=== PATIENT | male | born 1950 | race Caucasian/White ===

== ENCOUNTER 2016-07-30 07:06 | Inpatient (IN) | payer MEDICARE, OTHER ==
[2016-07-30] VITALS (9 sets, daily range): BP systolic 120–163; BP diastolic 64–88; PULSE 69–91; RESP 16–20; TEMP 97.2–97.7; O2SAT 95–98
[~2016-07-30] VITALS: Ht 175.3 cm; Wt 95.7 kg
[~2016-07-30 07:06] MED LIST: BUSP10 PO; CLOP75TA PO; LISI-360 PO; METO25 PO; PROT40TA PO; REME15TA PO; TOPA15CA PO
[2016-07-30] MEDS ORDERED: SODIUM CHLOR 0.9% 1000 ML INJ 1,000 ML IV SCH ×2 (07:22→10:23)
[2016-07-30] MEDS ORDERED: ONDANSETRON HCL 4 MG/2 ML VIAL IVP ONE (07:30)
[2016-07-30] MEDS ORDERED: SODIUM CHLORIDE 0.9% FLUSH 5 ML FLUSH IVF PRN (07:30)
--- NOTE | 2016-07-30 07:37 | PD ---
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 Symptoms started about 4 days ago. The day prior to symptom onset the patient had head trauma and apparently had a scalp hematoma after falling into a wall. He has not any antiplatelets or anticoagulants. He has not actually been vomiting, but has been dry heaving. No diarrhea. Abdominal pain is lower, cramping, intermittent, worse with movement and palpation. No fevers or chills. While in the emergency department the patient had a little discomfort in his chest which has since resolved. No known history of cardiac disease. History of cholecystectomy. No other abdominal surgeries. PFSH Past Medical History High Cholesterol: Yes Cerebrovascular Accident: Yes Diminished Hearing: No Hypertension: Yes Tetanus Vaccination: < 5 Years Past Surgical History Cholecystectomy: Yes Eye Surgery: Yes (BILAT. CATATRACTS) Neurologic Surgery: Yes (TRUCK DRIVER HELPER SHUNT) Social History Alcohol Use: No Tobacco Use: Yes (1 PPD) Substance Use: No Allergies-Medications (Allergen,Severity, Reaction): Coded Allergies: Histamine H2 Receptor Antagonist (Verified Allergy, Mild, 07/30/16) Reported Meds & Prescriptions Reported Meds & Active Scripts Active Reported Buspirone (Buspirone HCl) 10 Mg Tab 10 Mg PO TID Atorvastatin (Atorvastatin Calcium) 10 Mg Tab 10 Mg PO HS Lisinopril 10 Mg Tab 10 Mg PO DAILY Flomax (Tamsulosin HCl) 0.4 Mg Cap 0.4 Mg PO HS Metoprolol Tartrate 50 Mg Tab 50 Mg PO BID Eliquis (Apixaban) 5 Mg Tab 5 Mg PO BID Review of Systems Except as stated in HPI: all other systems reviewed are Neg Physical Exam Narrative GENERAL: Well-developed, well-nourished, awake, alert, dry heaving into an emesis bag SKIN: Warm and dry. No rash. Superficial abrasion to right posterior scalp. HEAD: Skin exam as above. Normocephalic. Right posterior radicular subcutaneous TRUCK DRIVER HELPER shunt palpable with depressible port EYES: Pupils equal and round. No scleral icterus. No injection or drainage. ENT: Mucous membranes pink and moist. NECK: Trachea midline. No JVD. No nuchal rigidity. CARDIOVASCULAR: Regular rate and rhythm. RESPIRATORY: No accessory muscle use. Clear to auscultation. Breath sounds equal bilaterally. GASTROINTESTINAL: Abdomen soft, nondistended. Mild diffuse tenderness without rebound or guarding. Normal bowel sounds. MUSCULOSKELETAL: No obvious deformities. No clubbing. No cyanosis. No edema. NEUROLOGICAL: Awake and alert. No obvious cranial nerve deficits. Motor grossly within normal limits. Normal speech. PSYCHIATRIC: Appropriate mood and affect; insight and judgment normal. Data Data Last Documented VS Vital Signs Date Time Temp Pulse Resp B/P Pulse Ox O2 Delivery O2 Flow Rate FiO2 07/30/16 09:25 74 20 138/73 98 Room Air 07/30/16 07:12 97.7 Orders Urinalysis - C+S If Indicated (07/30/16 07:10) Complete Blood Count With Diff (07/30/16 07:22) Comprehensive Metabolic Panel (07/30/16 07:22) Lipase (07/30/16 07:22) Lactic Acid (07/30/16 07:22) Prothrombin Time / Inr (Pt) (07/30/16 07:22) Act Partial Throm Time (Ptt) (07/30/16 07:22) Ct Abd/Pel W Iv Contrast(Rout) (07/30/16 07:22) Iv Access Insert/Monitor (07/30/16 07:22) Ecg Monitoring (07/30/16 07:22) Oximetry (07/30/16 07:22) Ondansetron Inj (Zofran Inj) (07/30/16 07:30) Sodium Chlor 0.9% 1000 Ml Inj (Ns 1000 M (07/30/16 07:22) Sodium Chloride 0.9% Flush (Ns Flush) (07/30/16 07:30) Electrocardiogram (07/30/16 07:22) Shunt Series (07/30/16 ) Ct Brain W/O Iv Contrast(Rout) (07/30/16 ) Ckmb (Isoenzyme) Profile (07/30/16 07:33) Troponin I (07/30/16 07:33) CKMB (07/30/16 07:28) CKMB% (07/30/16 07:28) Iohexol 350 Inj (Omnipaque 350 Inj) (07/30/16 08:26) Ondansetron Inj (Zofran Inj) (07/30/16 09:15) Morphine Inj (Morphine Inj) (07/30/16 09:15) Skull, Limited (<4 Views) (07/30/16 ) Sodium Chlor 0.9% 1000 Ml Inj (Ns 1000 M (07/30/16 10:23) Admit Order (Ed Use Only) (07/30/16 10:34) Aspirin Chew (Aspirin Chew) (07/30/16 10:45) Labs Laboratory Tests Test 07/30/16 07/30/16 07:28 08:44 White Blood Count 8.9 TH/MM3 Red Blood Count 5.65 MIL/MM3 Hemoglobin 16.7 GM/DL Hematocrit 49.5 % Mean Corpuscular Volume 87.6 FL Mean Corpuscular Hemoglobin 29.5 PG Mean Corpuscular Hemoglobin 33.7 % Concent Red Cell Distribution Width 12.7 % Platelet Count 211 TH/MM3 Mean Platelet Volume 8.9 FL Neutrophils (%) (Auto) 55.1 % Lymphocytes (%) (Auto) 34.2 % Monocytes (%) (Auto) 8.0 % Eosinophils (%) (Auto) 1.0 % Basophils (%) (Auto) 1.7 % Neutrophils # (Auto) 4.8 TH/MM3 Lymphocytes # (Auto) 3.1 TH/MM3 Monocytes # (Auto) 0.7 TH/MM3 Eosinophils # (Auto) 0.1 TH/MM3 Basophils # (Auto) 0.2 TH/MM3 CBC Comment DIFF FINAL Differential Comment Prothrombin Time 11.8 SEC Prothromb Time International 1.1 RATIO Ratio Activated Partial 27.2 SEC Thromboplast Time Sodium Level 140 MEQ/L Potassium Level 3.4 MEQ/L Chloride Level 108 MEQ/L Carbon Dioxide Level 18.9 MEQ/L Anion Gap 13 MEQ/L Blood Urea Nitrogen 13 MG/DL Creatinine 1.00 MG/DL Estimat Glomerular Filtration 75 ML/MIN Rate Random Glucose 118 MG/DL Lactic Acid Level 1.7 mmol/L Calcium Level 9.5 MG/DL Total Bilirubin 1.2 MG/DL Aspartate Amino Transf 67 U/L (AST/SGOT) Alanine Aminotransferase 129 U/L (ALT/SGPT) Alkaline Phosphatase 81 U/L Total Creatine Kinase 225 U/L Creatine Kinase MB 2.1 NG/ML Troponin I LESS THAN 0.02 NG/ML Total Protein 7.8 GM/DL Albumin 4.1 GM/DL Lipase 122 U/L Urine Collection Type CLEAN CATCH Urine Color YELLOW Urine Turbidity CLEAR Urine pH 6.0 Urine Specific [place] 1.032 Urine Protein NEG mg/dL Urine Glucose (UA) NEG mg/dL Urine Ketones 15 mg/dL Urine Occult Blood NEG Urine Nitrite NEG Urine Bilirubin NEG Urine Leukocyte Esterase NEG Urine RBC 0-3 /hpf Urine Squamous Epithelial 0-5 /hpf Cells Microscopic Urinalysis Comment CULT NOT INDICATED Urine Collection Time 08:44 [facility] Medical Decision Making Medical Screen Exam Complete: Yes Emergency Medical Condition: Yes Medical Record Reviewed: Yes Differential Diagnosis Shunt malfunction, ICH, colitis, diverticulitis, appendicitis, bowel obstruction , dehydration, ACS Narrative Course Vital signs show heart rate 91, blood pressure 145/86, pulse ox 97% on room air , oral temp of 97.7F. CBC is unremarkable. CMP is remarkable for bicarbonate 18.9, slightly elevated LFTs with AST 67, ALT 129, otherwise unremarkable. Cardiac enzymes are negative. Lipase is 122. UA is not suggestive of UTI. Shunt series shows intact TRUCK DRIVER HELPER shunt. CT head: CONCLUSION: 1. No fracture or acute intracranial abnormality is identified. 2. Right parietal region TRUCK DRIVER HELPER shunt is present. There is mild ventriculomegaly. Since no prior imaging study is available to compare, the ventricle size is of uncertain chronicity. Suggest correlation with any prior imaging studies to assess for change. CT abdomen pelvis: CONCLUSION: 1. Shunt tubing coiled within the abdomen and terminating within the left upper quadrant with the tubing abutting the peritoneum of the left upper quadrant. 2. 2 rounded 1.7 cm radiopaque foreign bodies within the colon, one within the cecum and one within the descending colon which appear to be ingested foreign bodies. The patient was given 2 doses of antiemetics and pain medication. He is still complaining of abdominal discomfort and is still retching in the emergency department. He was made aware of all findings. He does not recall ingesting any metallic/no metallic foreign bodies. He states he has not been able to eat or drink for the last 5 days. Case discussed with neurosurgeon Dr. Graf who is on-call for Dr. Torrez. She reviewed all images. She does not believe that the patient's symptoms are secondary to a shunt malfunction. She does want an x-ray directly of the TRUCK DRIVER HELPER shunt valve to check its pressure. She recommends IV hydration. Case discussed with for which the hospitalist Dr. Ward. The patient will be admitted to his service to the main hospital for neurosurgical consultation, and further treatment and evaluation. Diagnosis Primary Impression: Intractable nausea and vomiting Qualified Code: R11.2 - Intractable vomiting with nausea, unspecified vomiting type Additional Impressions: Abdominal pain Qualified Code: R10.9 - Abdominal pain, unspecified location Chest pain Qualified Code: R07.9 - Chest pain, unspecified type Admitting Information Admitting Physician Requests: Admit Chavo Oropeza MD Jul 30, 2016 07:37
[2016-07-30 07:38] LABS: AUTOMATED NEUTROPHIL # 4.8 TH/MM3 (1.8-7.7); BASOPHIL # 0.2 TH/MM3 (0-0.2); BASOPHIL % 1.7 % (0.0-2.0); EOSINOPHIL # 0.1 TH/MM3 (0-0.4); HEMATOCRIT 49.5 % (39.0-51.0); HEMO FLAGS DIFF FINAL; LYMPH % 34.2 % (9.0-44.0); LYMPHOCYTE # 3.1 TH/MM3 (1.0-4.8); MEAN CELL VOLUME 87.6 FL (80.0-100.0); MEAN CORPUSCULAR HEMOGLOBIN 29.5 PG (27.0-34.0); MEAN CORPUSCULAR HGB CONC 33.7 % (32.0-36.0); NEUT % 55.1 % (16.0-70.0); PLATELET COUNT 211 TH/MM3 (150-450); RED BLOOD COUNT 5.65 MIL/MM3 (4.50-5.90); RED CELL DISTRIBUTION WIDTH 12.7 % (11.6-17.2); WHITE BLOOD COUNT 8.9 TH/MM3 (4.0-11.0)
[2016-07-30 07:46] LABS: CHLORIDE 108 MEQ/L (98-107); POTASSIUM 3.4 MEQ/L (3.5-5.1); SODIUM (NA) 140 MEQ/L (136-145)
[2016-07-30 07:49] LABS: APTT (PATIENT) 27.2 SEC (24.3-30.1); INTERNATIONAL NORMALIZED RATIO 1.1 RATIO; PROTHROMBIN TIME - PATIENT 11.8 SEC (9.8-11.6)
[2016-07-30 07:50] LABS: ANION GAP 13 MEQ/L (5-15); BICARBONATE 18.9 MEQ/L (21.0-32.0); BLOOD UREA NITROGEN 13 MG/DL (7-18)
[2016-07-30 07:53] LABS: ALT (GPT) 129 U/L (12-78); AST (GOT) 67 U/L (15-37); GLOMERULAR FILTRATION RATE 75 ML/MIN (>89)
[2016-07-30 07:54] LABS: TOTAL BILIRUBIN ADULT 1.2 MG/DL (0.2-1.0)
[2016-07-30] MEDS ORDERED: APIX5TAB PO (07:54)
[2016-07-30] MEDS ORDERED: ATOR10TA15 PO (07:54)
[2016-07-30] MEDS ORDERED: BUSP10TA PO (07:54)
[2016-07-30] MEDS ORDERED: LISI10TA3 PO (07:54)
[2016-07-30] MEDS ORDERED: METO50TA PO (07:54)
[2016-07-30] MEDS ORDERED: TAMS5CAP PO (07:54)
[2016-07-30 07:55] LABS: ALKALINE PHOSPHATASE 81 U/L (45-117)
[2016-07-30 08:16] LABS: CREATINE KINASE 225 U/L (39-308)
[2016-07-30] MEDS ORDERED: IOHEXOL 350 MG/ML 10 ML VIAL (for RAD DIAG) IV ONE (08:26)
[2016-07-30 08:29] LABS: CKMB 2.1 NG/ML (0.5-3.6)
--- NOTE | 2016-07-30 08:33 | RADHPO ---
EXAM DATE/TIME: 07/30/2016 08:06 [facility] COMPARISON: No previous studies available for comparison. INDICATIONS : Trauma. Hit his head on a wall as he was falling. Nausea and vomiting. RADIATION DOSE: 61.70 CTDIvol (mGy) MEDICAL HISTORY : Seizures. Cerebrovascular disease. Hypertension. SURGICAL HISTORY : Cholecystectomy. [facility] shunt. ENCOUNTER: Initial ACUITY: 4 - 6 days PAIN SCALE: 0/10 LOCATION: cranial TECHNIQUE: Multiple contiguous axial images were obtained of the head. Using automated exposure control and adj ustment of the mA and/or kV according to patient size, radiation dose was kept as low as reasonably a chievable to obtain optimal diagnostic quality images. FINDINGS: CEREBRUM: There is mild generalized cerebral atrophy. Ventricles are mildly enlarged. A right parietal region a [facility] shunt is present with tubing tip in the midline of the lateral ventricles.. No evidence of midli ne shift, mass lesion, hemorrhage or acute infarction. No extra-axial fluid collections are seen. Th ere may be a small loculate air in the left cavernous sinus region that may be related to IV access o r injection. POSTERIOR FOSSA: The cerebellum and brainstem demonstrate no acute finding. The 4th ventricle is midline. The cerebe llopontine angle is unremarkable. EXTRACRANIAL: Visualized sinuses are clear. SKULL: The calvaria is intact. No evidence of skull fracture. CONCLUSION: 1. No fracture or acute intracranial abnormality is identified. 2. Right parietal region [facility] shunt is present. There is mild ventriculomegaly. Since no prior imaging study is available to compare, the ventricle size is of uncertain chronicity. Suggest correlation wit h any prior imaging studies to assess for change. Torsten Contreras MD on July 30, 2016 at 8:28 Board Certified Radiologist. This report was verified electronically.
--- NOTE | 2016-07-30 09:11 | RADHPO ---
EXAM DATE/TIME: 07/30/2016 07:45 [facility] COMPARISON: SHUNTOGRAM, June 13, 2015, 15:07. INDICATIONS : Headaches, nausea. MEDICAL HISTORY : Stroke. 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 The shunt cath eter is seen entering right calvarium region with its tip in the region of the body of the lateral ve ntricles. The catheter is continuous in its course terminating in the right upper quadrant of the abdomen. No c atheter disruption is identified. The visualized heart, lungs and abdominal structures are intact. CONCLUSION: Intact shunt. Arielle Lane MD on July 30, 2016 at 9:07 Board Certified Radiologist. This report was verified electronically.
[2016-07-30] MEDS ORDERED: ONDANSETRON HCL 4 MG/2 ML VIAL IV PUSH ONE ×2 (09:15→11:45)
[2016-07-30] MEDS ORDERED: MORPHINE SULFATE 4 MG/ML INJ IV PUSH ONE (09:15)
--- NOTE | 2016-07-30 09:19 | RADHPO ---
EXAM DATE/TIME: 07/30/2016 08:14 [facility] COMPARISON: No previous studies available for comparison. INDICATIONS : Lower abdominal pain. Nausea and vomiting. IV CONTRAST: 85 cc Omnipaque 350 (iohexol) IV ORAL CONTRAST: No oral contrast ingested. RADIATION DOSE: 21.01 CTDIvol (mGy) MEDICAL HISTORY : Seizures. Cerebrovascular disease. Hypertension. SURGICAL HISTORY : Cholecystectomy. 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 ENCOUNTER: Initial ACUITY: 4 - 6 days PAIN SCALE: 10/10 LOCATION: Bilateral lower quadrant TECHNIQUE: Volumetric scanning of the abdomen and pelvis was performed. Using automated exposure control and adjustment of the mA and/or kV according to patient size, radiation dose was kept as low as reasonably achievable to obtain optimal diagnostic quality images. FINDINGS: There is shunt tubing seen entering the right abdomen and terminating within t he left upper quadrant abutting the peritoneal surface. LOWER LUNGS: The visualized lower lungs are clear. LIVER: Homogeneous density without lesion. There is no dilation of the biliary tree patient is s tatus post prior cholecystectomy. SPLEEN: Normal size without lesion. PANCREAS: Within normal limits. KIDNEYS: Normal in size and shape. There is no concerning mass, stone or hydronephrosis. Small s ubcentimeter cysts are noted. ADRENAL GLANDS: Within normal limits. VASCULAR: There is no aortic aneurysm. BOWEL/MESENTERY: The stomach, small bowel, and colon demonstrate no acute abnormality. There is no free intraperitoneal air or fluid. There are 2 rounded radiopaque structures identified within the colon, one within the cecum and one within the descending colon. These may represent ingested foreig n bodies. ABDOMINAL WALL: Within normal limits. RETROPERITONEUM: There is no lymphadenopathy. BLADDER: No wall thickening or mass. REPRODUCTIVE: Within normal limits. INGUINAL: There is no lymphadenopathy or hernia. MUSCULOSKELETAL: Within normal limits for patient age. CONCLUSION: 1. Shunt tubing coiled within the abdomen and terminating within the left upper quadrant with the tub ing abutting the peritoneum of the left upper quadrant. 2. 2 rounded 1.7 cm radiopaque foreign bodies within the colon, one within the cecum and one within t he descending colon which appear to be ingested foreign bodies. Arielle Lane MD on July 30, 2016 at 9:10 Board Certified Radiologist. This report was verified electronically.
[2016-07-30 09:22] LABS: BLOOD, URINE NEG (NEG); GLUCOSE,URINE NEG (NEG); KETONE, URINE 15 mg/dL (NEG); NITRITE,URINE NEG (NEG)
[2016-07-30 09:23] LABS: COMMENT (UR) CULT NOT INDICATED; CULTURE IF INDICATED CULT NOT INDICATED; METHOD OF COLLECTION CLEAN CATCH; RBC, URINE 0-3 /hpf (0-3); SQUAMOUS EPITHELIAL CELL URINE 0-5 /hpf (0-5); URINE COLOR YELLOW (YELLW/STRAW)
[2016-07-30] MEDS ORDERED: ASPIRIN 81 MG CHEW TAB PO ONE (10:45)
--- NOTE | 2016-07-30 11:10 | RADHPO ---
EXAM DATE/TIME: 07/30/2016 10:01 [facility] COMPARISON: No previous studies available for comparison. INDICATIONS : Check shunt valve setting. MEDICAL HISTORY : Stroke. hydrocephalus, seizures SURGICAL HISTORY : evp strategy shunt ENCOUNTER: Subsequent ACUITY: 1 week PAIN SCORE: 0/10 LOCATION: cranial FINDINGS: Oblique x-ray image of the skull was obtained to evaluate the ventriculoperitoneal shunt setting. Bas ed on the appearance of the shunt valve it appears to represent a [employer] PS Medical Strata device. Based on our reference chart, the patient's device is set to P/L 1.0. Attached to this examination i s the pressure and flow rates associated with performance level 1.0. Please refer to that chart for r eference, if needed. CONCLUSION: STRIP POLISHER shunt is set at P/L 1.0. Please see reference chart that has been scanned in with this examination to determine flow rate and pressure settings, if needed. Please also ensure that this does represent a [employer] PS Medical Strata device. Torsten Contreras MD on July 30, 2016 at 11:02 Board Certified Radiologist. This report was verified electronically.
[2016-07-30] MEDS: DEXT 5%-NACL 0.45% 1000 ML INJ 1,000 ML IV SCH (13:29)
[2016-07-30] MEDS: busPIRone HCL 10 MG TAB PO SCH ×2 (13:29→18:11)
[2016-07-30] MEDS: PANTOPRAZOLE SODIUM 40 MG VIAL IV PUSH SCH (13:29)
[2016-07-30] MEDS: METOCLOPRAMIDE HCL 10 MG/2 ML VIAL IV PRN ×2 (14:50→21:11)
[2016-07-30] MEDS: TAMSULOSIN HCL 0.4 MG CAP PO SCH (21:11)
[2016-07-30] MEDS: METOPROLOL TARTRATE 50 MG TAB PO SCH (21:11)
--- NOTE | 2016-07-30 22:59 | MH ---
cc: LUIS MARCUM MD DATE OF ADMISSION 07/30/2016 CHIEF COMPLAINT Abdominal pain, nausea, vomiting. HISTORY OF PRESENT ILLNESS This is a 66-year male with past medical-surgical history significant for CVA with right-sided DB2 SYSTEMS PROGRAMMER shunt placed in 2009, complaining of nausea or vomiting, has a history of hyperlipidemia, hypertension, bilateral cataract surgery with DB2 SYSTEMS PROGRAMMER shunt placement, cholecystectomy. He came [facility] the ER at [facility] complaining of dry heaving, abdominal pain and symptoms started about four days ago. Day prior to the onset of the symptoms the patient had a trauma and approximately had a scalp hematoma after falling into a wall. He has not actually been vomiting but has been having some nausea and dry heaving. No diarrhea. Abdominal pain is lower cramping, intermittent, worse with movement and palpations. No fever or chills. He has a little chest discomfort in the ER which has resolved. No history of cardiac disease. other than that, nothing significant. PAST MEDICAL HISTORY/PAST SURGICAL HISTORY As dictated above. SOCIAL HISTORY He smoked one pack a day for many years. Denies any alcohol or drug abuse. Lives at home with . He is retired. FAMILY HISTORY Nothing significant ALLERGIES HISTAMINE H2 RECEPTOR ANTAGONIST MEDICATIONS 1. Buspirone 10 mg p.o. t.i.d. 2. Atorvastatin 10 mg p.o. at bedtime 3. Lisinopril 10 mg p.o. daily, 4. Flomax 0.4 mg p.o. at bedtime 5. Metoprolol 50 mg twice a day. 6. Eliquis 5 mg p.o. b.i.d. PHYSICAL EXAMINATION GENERAL: This is a 66-year-old male laying on the bed not in acute distress. VITAL SIGNS: Temperature 97.7, heart rate 74, respiration 18, blood pressure 152/72, O2 saturation 96% room air. HEENT: Normocephalic, atraumatic. EOMI. Pupils are equal, round, reactive to light. Oral mucosa moist. NECK: Supple. No visible thyromegaly or neck mass. Trachea central. CARDIOVASCULAR: Regular rate and rhythm. LUNGS: Clear to auscultation bilaterally. ABDOMEN: Soft, diffuse tender. Bowel sounds audible. EXTREMITIES: No cyanosis or clubbing. Full range of motion of all extremities. NEUROLOGIC: Awake, alert, oriented x4. No focal deficits. SKIN: Warm and dry. PSYCHIATRIC: Cooperative, mood and affect are normal. LABORATORY DATA CBC is totally unremarkable. BMP shows sodium 140, potassium 3.4 low, chloride 108 high, Carbon dioxide 18.9 low, BUN 30 normal, creatinine 1.0 normal, GFR 75 low, blood glucose 118 high, bilirubin 1.2 high. AST 67 high, ALT 129 high, creatine kinase total 225, CPK MB 2.1, troponin-I less than 0.02. Lipase 122 and albumin 4.1, total protein 7.8. Urine examination shows ketones 15 high. IMAGING STUDIES Skull x-ray was done shows DB2 SYSTEMS PROGRAMMER shunt set at PL 1.0. Please see the reference chart that has been scanned in with this examination to determine flow rate and pressure settings if needed. Results also showed that this does represent a [employer] medical Strata device. Shunt study imaging done shows intact shunt. CT brain was done, shows no fracture or acute intracranial abnormality identified, right parietal region DB2 SYSTEMS PROGRAMMER shunt is present. There is a mild ventriculomegaly since no prior imaging study is available to compare. The ventricle size of uncertain chronicity, suggest correlation with prior imaging study to assess for changes. CT abdomen and pelvis was done shows shunt tubing coiled within the abdomen and terminate within the left upper quadrant with the tubing abutting the peritoneum of the left upper quadrant rounded 1.7 cm radio opaque foreign body within the colon, one within the cecum and one within the descending colon which appeared to be ingested foreign bodies. CARDIOLOGY STUDIES Electrocardiogram done showed heart rate 79. No acute ST-T wave changes. ASSESSMENT/PLAN 1. This is 66-year male who came to the emergency room diagnosed with abdominal pain and nausea, lipase is normal. Etiology is not known exactly. CT abdomen and pelvis was done, shows three radiopaque foreign bodies within the colon. I will consult GI for further recommendation. 2. History of DB2 SYSTEMS PROGRAMMER shunt placement, consult neurosurgery for further recommendation. The patient is status post fall. CT brain shows mild ventriculomegaly, other than that nothing acute. Further recommendation per neurosurgeon. 3. History of hypertension. Continue home medication. 4. History of stroke in the past. The patient is on Eliquis. 5. History of hyperlipidemia. Continue with Lipitor 10 mg p.o. daily. 6. History of anxiety. Continue with buspirone 10 mg by mouth t.i.d. 7. Benign prostatic hypertrophy Continue Flomax 0.4 mg q.h.s. 8. History of hypertension. Continue with lisinopril and metoprolol. 9. DVT prophylaxis. Eliquis 10. GI prophylaxis Protonix 40 mg p.o. daily. We are going to manage the patient on daily basis and make recommendation on daily basis. Luis Marcum MD EA/ /7:51 PM /10:35 PM
[2016-07-31] VITALS (9 sets, daily range): BP systolic 124–157; BP diastolic 69–80; PULSE 59–85; RESP 18–20; TEMP 96.5–98; O2SAT 94–96
[2016-07-31] MEDS: METOCLOPRAMIDE HCL 10 MG/2 ML VIAL IV PRN ×2 (04:51→12:33)
--- NOTE | 2016-07-31 08:07 | HHI.PR ---
Subjective History of Present Illness Patient c/o abdomial pain and diarrhea. no acute issue Neurosurgery input appriaciated.. Hx of cerebral aneurysm. Follow up MRI/MRA is pending early next week. The valve will be re adjusted after the MRI Review of Systems Constitutional Constitutional: Fatigue, Weakness GI/Abdomen GI/Abdominal Exam: Diarrhea, Abdominal Pain Neurologic Neurologic: Headache Vitals/Results Intake & Output 07/30/16 07/30/16 07/31/16 15:00 23:00 07:00 Intake Total 1000 ml Output Total 200 ml 50 ml 300 ml Balance 800 ml -50 ml -300 ml Intake IV Total 1000 ml Output Urine Total 200 ml 50 ml 300 ml # Bowel Movements 2 Vital Signs Vital Signs Date Time Temp Pulse Resp B/P Pulse Ox O2 Delivery O2 Flow Rate FiO2 07/31/16 04:47 96.8 78 20 124/71 96 07/31/16 01:49 71 07/31/16 00:00 97.2 64 19 150/74 95 07/30/16 20:56 97.2 69 20 120/76 95 07/30/16 19:33 74 18 96 07/30/16 19:31 74 18 152/72 96 Room Air 07/30/16 17:31 74 18 158/70 96 Room Air 07/30/16 14:53 69 18 148/64 96 Room Air 07/30/16 13:32 75 16 150/73 96 Room Air 07/30/16 10:56 72 18 163/88 96 Room Air 07/30/16 09:25 74 20 138/73 98 Room Air CBC/BMP: 07/30/16 0728 07/30/16 0728 Lab Results Laboratory Tests Test 07/30/16 08:44 Urine Collection Type CLEAN CATCH Urine Color YELLOW Urine Turbidity CLEAR Urine pH 6.0 Urine Specific [place] 1.032 Urine Protein NEG mg/dL Urine Glucose (UA) NEG mg/dL Urine Ketones 15 mg/dL Urine Occult Blood NEG Urine Nitrite NEG Urine Bilirubin NEG Urine Leukocyte Esterase NEG Urine RBC 0-3 /hpf Urine Squamous Epithelial 0-5 /hpf Cells Microscopic Urinalysis Comment CULT NOT INDICATED Urine Collection Time 08:44 Physical Exam General General Appearance: No Acute Distress, Comfortable Eyes Eye Exam: Pupils Equal, Pupils Reactive, Sclera White, Extraocular Movement Intact Throat Throat Exam: Oral Mucosa [place] & Moist, Oral Pharynx Normal Neck Neck Exam: Neck Supple, Trachea Midline Pulmonary Resp Exam: Clear Bilaterally, Breath Sounds Equal, No Distress Cardiology CV Exam: Regular, Normal Sinus Rhythm, Good Perfusion Gastrointestinal/Abdomen GI Exam: Soft, Bowel Sounds Present Musculoskeletal MS Exam: Normal Tone Integumentary Skin Exam: Warm, Dry Extremeties Extremities Exam: No Edema Neurologic Neuro Exam: Alert, Awake, Oriented, Speech Clear, Moving All Extremities, No Focal Deficits Psychiatric Psych Exam: Appropriate Responses VTE Prophylaxis VTE Prophylaxis Meds: Heparin PUD Prophylasis PUD Prophylaxis: Protonix Assessment/Plan Assessment/Plan ASSESSMENT/PLAN 1. This is 66-year male who came to the emergency room diagnosed with abdominal pain and nausea, lipase is normal. Etiology is not known exactly. CT abdomen and pelvis was done, shows three radiopaque foreign bodies within the colon. I will consult GI for further recommendation. 2. Hx of cerebral aneurysm. 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 Follow up MRI/MRA is pending early next week. The valve will be re adjusted after the MRI The patient is status post fall. CT brain shows mild ventriculomegaly, other than that nothing acute. Further recommendation per neurosurgeon. 3. History of hypertension. Continue home medication. 4. History of stroke in the past. The patient is on Eliquis. 5. History of hyperlipidemia. Continue with Lipitor 10 mg p.o. daily. 6. History of anxiety. Continue with buspirone 10 mg by mouth t.i.d. 7. Benign prostatic hypertrophy Continue Flomax 0.4 mg q.h.s. 8. History of hypertension. Continue with lisinopril and metoprolol. 9. DVT prophylaxis. Eliquis 10. GI prophylaxis Protonix 40 mg p.o. daily. Check CBC with diff CMP in AM. We are going to manage the patient on daily basis and make recommendation on daily basis. Discussed Condition with: Patient Luis Felder MD Jul 31, 2016 08:07
[2016-07-31] MEDS: METOPROLOL TARTRATE 50 MG TAB PO SCH ×2 (08:09→22:15)
[2016-07-31] MEDS: busPIRone HCL 10 MG TAB PO SCH ×2 (08:09→12:33)
[2016-07-31] MEDS: LISINOPRIL 10 MG TAB PO SCH (08:09)
[2016-07-31] MEDS: ONDANSETRON HCL 4 MG/2 ML VIAL IV PUSH PRN (08:10)
[2016-07-31 08:37] LABS: AUTOMATED NEUTROPHIL # 4.6 TH/MM3 (1.8-7.7); BASOPHIL # 0.1 TH/MM3 (0-0.2); BASOPHIL % 0.8 % (0.0-2.0); EOSINOPHIL # 0.1 TH/MM3 (0-0.4); EOSINOPHIL % 1.4 % (0.0-4.0); HEMATOCRIT 43.8 % (39.0-51.0); HEMO FLAGS DIFF FINAL; LYMPH % 25.7 % (9.0-44.0); MEAN CELL VOLUME 87.4 FL (80.0-100.0); MEAN CORPUSCULAR HEMOGLOBIN 30.4 PG (27.0-34.0); MEAN CORPUSCULAR HGB CONC 34.8 % (32.0-36.0); MONO % 11.6 % (0.0-8.0); NEUT % 60.5 % (16.0-70.0); PLATELET COUNT 182 TH/MM3 (150-450); RED BLOOD COUNT 5.01 MIL/MM3 (4.50-5.90); RED CELL DISTRIBUTION WIDTH 13.1 % (11.6-17.2); WHITE BLOOD COUNT 7.6 TH/MM3 (4.0-11.0)
[2016-07-31 09:01] LABS: ALT (GPT) 116 U/L (12-78); ANION GAP 6 MEQ/L (5-15); AST (GOT) 63 U/L (15-37); BICARBONATE 26.9 MEQ/L (21.0-32.0); BLOOD UREA NITROGEN 10 MG/DL (7-18); CHLORIDE 107 MEQ/L (98-107); GLOMERULAR FILTRATION RATE 78 ML/MIN (>89); POTASSIUM 3.4 MEQ/L (3.5-5.1); SODIUM (NA) 140 MEQ/L (136-145)
[2016-07-31 09:03] LABS: ALKALINE PHOSPHATASE 71 U/L (45-117); TOTAL BILIRUBIN ADULT 0.9 MG/DL (0.2-1.0)
[2016-07-31] MEDS: DEXT 5%-NACL 0.45% 1000 ML INJ 1,000 ML IV SCH ×2 (10:17→22:15)
[2016-07-31] MEDS: PANTOPRAZOLE SODIUM 40 MG VIAL IV PUSH SCH (14:56)
--- NOTE | 2016-07-31 16:10 | PD.CONS ---
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 He did well but required a VPS with a Strata valve [employer], level 1.0 and had one seizure after discharge. He hit his head on the wall at home during the night and has had a headache since then. he also has been vomiting and felt dehydrated. He is otherwise alert and has no focal deficit. His gait is stable. He has had both diarrhea and very hard pellet stools. Review of Systems Constitutional: COMPLAINS OF: Fatigue Eyes: DENIES: Blurred vision, Diplopia, Eye inflammation, Eye pain, Vision loss , Photosensitivity, Double Vision Ears, nose, mouth, throat: DENIES: Tinnitus, Hearing loss, Vertigo, Nasal discharge, Oral lesions, Throat pain, Hoarseness, Ear Pain, Running Nose, Epistaxis, Sinus Pain, Toothache, Odynophagia Respiratory: DENIES: Apneas, Cough, Snoring, Wheezing, Hemoptysis, Sputum production, Shortness of breath Cardiovascular: DENIES: Chest pain, Palpitations, Syncope, Dyspnea on Exertion , PND, Lower Extremity Edema, Orthopnea, Claudication Gastrointestinal: COMPLAINS OF: Constipation, Diarrhea, Vomiting Genitourinary: DENIES: Sexual dysfunction, Urinary frequency, Urinary incontinence, Urgency, Hematuria, Dysuria, Nocturia, Penile Discharge, Testicular Pain, Testicular Swelling Musculoskeletal: DENIES: Joint pain, Muscle aches, Stiffness, Joint Swelling, Back pain, Neck pain Integumentary: DENIES: Abnormal pigmentation, Nail changes, Pruritus, Rash Hematologic/lymphatic: DENIES: Bruising, Lymphadenopathy Immunologic/allergic: DENIES: Eczema, Urticaria Neurologic: COMPLAINS OF: Headache, DENIES: Abnormal gait, Localized weakness , Paresthesias, Seizures, Speech Problems, Tremor, Poor Balance Psychiatric: DENIES: Anxiety, Confusion, Mood changes, Depression, Hallucinations, Agitation, Suicidal Ideation, Homicidal Ideation, Delusions Past Family Social History Allergies: Coded Allergies: Histamine H2 Receptor Antagonist (Verified Allergy, Mild, 07/30/16) Past Medical History Brain aneurysm, repaired Seizure x 1 Short term memory loss Anxiety disorder on buspar DVT in 2010, recently started on elliquis Past Surgical History Aneurysm clipping VSP Reported Medications Reported Meds & Active Scripts Active Reported Buspirone (Buspirone HCl) 10 Mg Tab 10 Mg PO TID Atorvastatin (Atorvastatin Calcium) 10 Mg Tab 10 Mg PO HS Lisinopril 10 Mg Tab 10 Mg PO DAILY Flomax (Tamsulosin HCl) 0.4 Mg Cap 0.4 Mg PO HS Metoprolol Tartrate 50 Mg Tab 50 Mg PO BID Eliquis (Apixaban) 5 Mg Tab 5 Mg PO BID Family History Mother of colon CA Social History Smokes less than 1 ppd Physical Exam Vital Signs Vital Signs Date Time Temp Pulse Resp B/P Pulse Ox O2 Delivery O2 Flow Rate FiO2 07/31/16 12:00 97.4 59 18 155/73 95 07/31/16 10:17 85 07/31/16 08:00 96.5 67 18 152/80 95 07/31/16 04:47 96.8 78 20 124/71 96 07/31/16 01:49 71 07/31/16 00:00 97.2 64 19 150/74 95 07/30/16 20:56 97.2 69 20 120/76 95 07/30/16 19:33 74 18 96 07/30/16 19:31 74 18 152/72 96 Room Air 07/30/16 17:31 74 18 158/70 96 Room Air Physical Exam Very pleasant gentleman, alert and following complex commands, EOMI, face symmetric, valve right parietal with good reservoir refill, Motor intact in all 4 extremities, normal finger taps radha, Getting up from bed and down with no difficulty, good balance, turns in one step. Abd soft, obese, no tender, few BS Skin warm and dry, no peripheral edema, no rashes. no ecchymosis Laboratory Laboratory Tests Test 07/31/16 07/31/16 08:05 08:06 White Blood Count 7.6 Red Blood Count 5.01 Hemoglobin 15.2 Hematocrit 43.8 Mean Corpuscular Volume 87.4 Mean Corpuscular Hemoglobin 30.4 Mean Corpuscular Hemoglobin 34.8 Concent Red Cell Distribution Width 13.1 Platelet Count 182 Mean Platelet Volume 8.9 Neutrophils (%) (Auto) 60.5 Lymphocytes (%) (Auto) 25.7 Monocytes (%) (Auto) 11.6 Eosinophils (%) (Auto) 1.4 Basophils (%) (Auto) 0.8 Neutrophils # (Auto) 4.6 Lymphocytes # (Auto) 2.0 Monocytes # (Auto) 0.9 Eosinophils # (Auto) 0.1 Basophils # (Auto) 0.1 CBC Comment DIFF FINAL Differential Comment Sodium Level 140 Potassium Level 3.4 Chloride Level 107 Carbon Dioxide Level 26.9 Anion Gap 6 Blood Urea Nitrogen 10 Creatinine 0.96 Estimat Glomerular Filtration 78 Rate Random Glucose 116 Calcium Level 8.6 Total Bilirubin 0.9 Aspartate Amino Transf 63 (AST/SGOT) Alanine Aminotransferase 116 (ALT/SGPT) Alkaline Phosphatase 71 Total Protein 6.9 Albumin 3.9 Result Diagram: 07/31/1680407/31/16805 Imaging Last Impressions Abdomen/Pelvis CT 07/30/16 0722 Signed Impressions: Service Date/Time: July 08:14 - CONCLUSION: 1. Shunt tubing coiled within the abdomen and terminating within the left upper quadrant with the tubing abutting the peritoneum of the left upper quadrant. 2. 2 rounded 1.7 cm radiopaque foreign bodies within the colon, one within the cecum and one within the descending colon which appear to be ingested foreign bodies. Arielle Lane MD Skull X-Ray 07/30/16 0000 Signed Impressions: Service Date/Time: July 10:01 - CONCLUSION: DANCE HALL HOST/HOSTESS shunt is set at P/L 1.0. Please see reference chart that has been scanned in with this examination to determine flow rate and pressure settings, if needed. Please also ensure that this does represent a [employer] Strata device. Torsten Contreras MD Shunt Study (Imaging) 07/30/16 0000 Signed Impressions: Service Date/Time: July 07:45 - CONCLUSION: Intact shunt. Arielle Lane MD Head CT 07/30/16 0000 Signed Impressions: Service Date/Time: July 08:06 - CONCLUSION: 1. No fracture or acute intracranial abnormality is identified. 2. Right parietal region DANCE HALL HOST/HOSTESS shunt is present. There is mild ventriculomegaly. Since no prior imaging study is available to compare, the ventricle size is of uncertain chronicity. Suggest correlation with any prior imaging studies to assess for change. Torsten Contreras MD Assessment and Plan Diagnosis: (1) Intractable nausea and vomiting Plan: Improved, is now able to tolerate clear. The shunt is connected and there is no proximal or distal radiologic abnormality.It may very well be a drug interaction. The buspar should be held for now. ICD Code: R11.2 (2) Headache Plan: Tenderness in the back of the head from hitting the head at night on the wall. may have had a concussion or a seizure. He is close to his neurologic baseline. We will give a trial of topamax at night and hydrate ICD Code: R51 (3) Aneurysm Plan: Repaired cerebral aneurysm 2009, will obtain follow up brain MRI/MRA next week as a follow up. The valve will be reprogrammed after the scans. ICD Code: I72.9 Problem Qualifiers (1) Intractable nausea and vomiting: Qualified Code: R11.2 - Intractable vomiting with nausea, unspecified vomiting type (2) Headache: Pancho Graf Jul 31, 2016 16:10
[2016-07-31 16:24] LABS: AMPHETAMINE, URINE NEG (NEG); BARBITURATES, URINE NEG (NEG); COCAINE, URINE NEG (NEG)
--- NOTE | 2016-07-31 16:59 | EKG ---
Date Performed: 07/30/2016 Time Performed: 07:23:34 PTAGE: 66 years EKG: Sinus rhythm ST junctional depression is nonspecific Borderline ECG NO PREVIOUS TRACING DOCTOR: Ion Keys Interpretating Date/Time 07/31/2016 16:57:31
[2016-07-31] MEDS: ALPRAZolam 0.25 MG TAB PO PRN ×2 (18:23→22:15)
[2016-07-31] MEDS: TOPIRAMATE 25 MG TAB PO SCH (18:24)
[2016-07-31] MEDS: TAMSULOSIN HCL 0.4 MG CAP PO SCH (22:15)
[2016-08-01] VITALS (7 sets, daily range): BP systolic 122–163; BP diastolic 65–89; PULSE 53–60; RESP 18–22; TEMP 96.4–97.3; O2SAT 94–96
[2016-08-01] MEDS: DEXT 5%-NACL 0.45% 1000 ML INJ 1,000 ML IV SCH (04:41)
[2016-08-01] MEDS: ALPRAZolam 0.25 MG TAB PO PRN ×4 (04:54→20:46)
[2016-08-01] MEDS: METOPROLOL TARTRATE 50 MG TAB PO SCH ×2 (08:46→20:46)
[2016-08-01] MEDS: LISINOPRIL 10 MG TAB PO SCH (08:46)
[2016-08-01] MEDS: ONDANSETRON HCL 4 MG/2 ML VIAL IV PUSH PRN (08:48)
--- NOTE | 2016-08-01 10:35 | HHI.NSPN ---
History Chief Complaint: none Interval History 66 yr old gentleman admitted with vomiting and headache. Drug interaction was found and the buspar was stopped. He is improved and ready to start taking po. He has no new gait instability or focal problems. Review of Systems General: Negative for: fever, chills, insomnia Respiratory: Negative for: shortness of breath, cough, sputum Cardiovascular: Negative for: chest pain, palpitations, orthopnea Gastrointestinal: Negative for: nausea, vomitting, diarrhea, constipation Genitourinary: Negative for: urinary burning, urinary frequency, urinary urgency Exam Results Vital Signs Date Time Temp Pulse Resp B/P Pulse Ox O2 Delivery O2 Flow Rate FiO2 08/01/16 07:53 96.4 54 20 159/79 95 07/30/16 19:31 Room Air Intake and Output 07/31/16 07/31/16 08/01/16 08:00 16:00 00:00 Intake Total 0 ml 1955 ml Output Total 300 ml 0 ml Balance -300 ml 0 ml 1955 ml Physical Examination Alert, face symmetric, head atraumatic, appears comfortable Sitting on a chair and smiling, transfers with no difficulty, Moves all extremities with normal strength Lab, Micro, Other Results Laboratory Tests Test 07/31/16 15:40 Urine Opiates Screen NEG Urine Barbiturates Screen NEG Urine Amphetamines Screen NEG Urine Benzodiazepines Screen NEG Urine Cocaine Screen NEG Urine Cannabinoids Screen NEG Medical Decision Making Impression and Plan 1- Headache/Vomiting: probable drug interaction. He is now off the buspar and a low dose topamax is initiated. 2- Hx of cerebral aneurysm. Follow up MRI/MRA is pending early next week. The valve will be re adjusted after the MRI Pancho Graf Aug 01, 2016 10:35
--- NOTE | 2016-08-01 11:14 | HHI.PR ---
Subjective History of Present Illness Patient c/o abdomial pain and diarrhea..almost resolved... no acute issue Neurosurgery input noted.. Hx of cerebral aneurysm. Follow up MRI/MRA is pending early next week. The valve will be re adjusted after the MRI Review of Systems Constitutional Constitutional: Fatigue, Weakness GI/Abdomen GI/Abdominal Exam: Diarrhea, Abdominal Pain Neurologic Neurologic: Headache Vitals/Results Intake & Output 07/31/16 07/31/16 08/01/16 15:00 23:00 07:00 Intake Total 0 ml 1955 ml 0 ml Output Total 0 ml 900 ml Balance 0 ml 1955 ml -900 ml Intake Oral 0 ml 0 ml 0 ml IV Total 1955 ml Output Urine Total 0 ml 900 ml # Voids 3 1 2 # Bowel Movements 6 1 2 Vital Signs Vital Signs Date Time Temp Pulse Resp B/P Pulse Ox O2 Delivery O2 Flow Rate FiO2 08/01/16 07:53 96.4 54 20 159/79 95 08/01/16 05:28 54 19 122/65 95 08/01/16 04:40 97.0 58 18 153/78 94 07/31/16 21:19 63 07/31/16 20:45 97.9 64 18 144/71 94 07/31/16 16:00 96.5 60 18 157/70 95 07/31/16 12:00 97.4 59 18 155/73 95 CBC/BMP: 07/31/16 0805 07/31/16 0806 Lab Results Laboratory Tests Test 07/31/16 15:40 Urine Opiates Screen NEG Urine Barbiturates Screen NEG Urine Amphetamines Screen NEG Urine Benzodiazepines Screen NEG Urine Cocaine Screen NEG Urine Cannabinoids Screen NEG Physical Exam General General Appearance: No Acute Distress, Comfortable Eyes Eye Exam: Pupils Equal, Pupils Reactive, Sclera White, Extraocular Movement Intact Throat Throat Exam: Oral Mucosa [place] & Moist, Oral Pharynx Normal Neck Neck Exam: Neck Supple, Trachea Midline Pulmonary Resp Exam: Clear Bilaterally, Breath Sounds Equal, No Distress Cardiology CV Exam: Regular, Normal Sinus Rhythm, Good Perfusion Gastrointestinal/Abdomen GI Exam: Soft, Bowel Sounds Present Musculoskeletal MS Exam: Normal Tone Integumentary Skin Exam: Warm, Dry Extremeties Extremities Exam: No Edema Neurologic Neuro Exam: Alert, Awake, Oriented, Speech Clear, Moving All Extremities, No Focal Deficits Psychiatric Psych Exam: Appropriate Responses VTE Prophylaxis VTE Remarks Eliquis. PUD Prophylasis PUD Prophylaxis: Protonix Assessment/Plan Assessment/Plan ASSESSMENT/PLAN 1. This is 66-year male who came to the emergency room diagnosed with abdominal pain and nausea, lipase is normal. Etiology is not known exactly. CT abdomen and pelvis was done, shows three radiopaque foreign bodies within the colon. I will consult GI for further recommendation. 2. Hx of cerebral aneurysm. 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 Follow up MRI/MRA is pending early next week. The valve will be re adjusted after the MRI The patient is status post fall. CT brain shows mild ventriculomegaly, other than that nothing acute. Further recommendation per neurosurgeon. 3. History of hypertension. Continue home medication. 4. History of stroke in the past. The patient is on Eliquis. 5. History of hyperlipidemia. Continue with Lipitor 10 mg p.o. daily. 6. History of anxiety. Continue with buspirone 10 mg by mouth t.i.d. 7. Benign prostatic hypertrophy Continue Flomax 0.4 mg q.h.s. 8. History of hypertension. Continue with lisinopril and metoprolol. 9. DVT prophylaxis. Eliquis 10. GI prophylaxis Protonix 40 mg p.o. daily. Check CBC with diff CMP in AM. We are going to manage the patient on daily basis and make recommendation on daily basis. Discussed Condition with: Patient Luis Felder MD Aug 01, 2016 11:14
[2016-08-01] MEDS: PANTOPRAZOLE SODIUM 40 MG VIAL IV PUSH SCH (14:19)
--- NOTE | 2016-08-01 16:47 | RADRPT ---
EXAM DATE/TIME: 08/01/2016 15:31 [facility] COMPARISON: SHUNT SERIES, July 30, 2016, 7:45. INDICATIONS : Evaluate for foreign bodies of unknown origin. MEDICAL HISTORY : None. SURGICAL HISTORY : Cholecystectomy. BOTTOM STAINER shunt. ENCOUNTER: Initial ACUITY: 1 day PAIN SCORE: 0/10 LOCATION: Bilateral abdomen. FINDINGS: Three-view examination is performed. There is shunt tubing coiled in the upper right abdomen, simila r to prior examination 07/30/16. There is gas in the lumen of the colon. No dilated loops of small b owel seen. Hemoclips in the nikki from presumed cholecystectomy. No metallic foreign body is seen. On the film marked #3, there is a structure superimposed upon the left upper quadrant which contains a central metal which is not seen on a coned down view of the left upper quadrant. This could repre sent shunt tubing. Recommend correlation with clinical exam. CONCLUSION: The only possible radiopaque foreign body seen is only seen on one of the views and is located in the left upper quadrant, possibly representing a tubing connector. Recommend correlation with clinical exam. Oumar Bain MD on August 01, 2016 at 16:43 Board Certified Radiologist. This report was verified electronically.
--- NOTE | 2016-08-01 17:05 | MB ---
cc: DECLAN FELDER MD, BEATRICE S. M.D. DATE OF CONSULTATION: 08/01/2016 DATE OF : [address] Declan Felder. REASON FOR CONSULTATION Abdominal pain, abnormal CT. HISTORY OF PRESENT ILLNESS This consultation was originally called to Dr. Yap. Dr. Yap never received this consult. The patient was transferred here to [facility] from [place] and I noted his name on my list. I was not aware of this consultation. I discussed with Dr. Ward and the nursing staff. Apparently, the patient continues to have symptoms so the consultation is required. Mr. Kevin is a 66-year-old gentleman with multiple medical problems, came to the emergency room with complaints of nausea and abdominal pain. The patient stated that approximately two weeks ago he started having a poor appetite. He had severe constipation, was unable to move his bowels for approximately three days which is unusual for him. Then he took six Ex-Lax with no immediate result, afterwards he had some nausea, he stated no vomiting, and developed some abdominal pain that he describes to be in the periumbilical area. He did have also some loose stools afterwards. He came to the emergency room for further evaluation and treatment. He also noted that he had a scalp hematoma on the back of his head. He does not remember hitting his head or having a fall, he thinks he may have moved his head during sleep. He also reports having chills for the last six months. He is having chills almost everyday with shaking and trembling, does not know if he had fever or not. He had a colonoscopy seven years ago, according to him that was negative. Never had an upper endoscopy. He also reports having some difficulty swallowing on and off. He does have a family history of colon cancer. PAST MEDICAL HISTORY 1. 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 2. Hyperlipidemia. 3. Hypertension. 4. Bilateral cataract surgery. 5. Cholecystectomy. SOCIAL HISTORY Smokes one pack of cigarettes per day for many years. Denies any drug use. FAMILY HISTORY Mother had colon cancer. Father had liver cancer. ALLERGIES HISTAMINE. MEDICATIONS 1. Buspirone. 2. Atorvastatin. 3. Lisinopril. 4. Flomax. 5. Metoprolol. 6. Eliquis. REVIEW OF SYSTEMS He denies any fever but he does have chills as mentioned above. ENT: No alteration in baseline hearing or visual acuity. PULMONARY: Denies any chest pain, shortness of breath. GASTROINTESTINAL: As above. GENITOURINARY: Denies dysuria or hematuria. HEMATOLOGICAL: No history of anemia or bleeding disorder. SKIN: No alteration in baseline skin lesion. NEUROLOGICAL: No history of recent CVA or TIA he did have in the past. EXTREMITIES: No pedal edema. SKIN: No alteration in baseline skin lesion. PHYSICAL EXAMINATION GENERAL: On clinical exam, he is sitting in bed in no acute distress. VITAL SIGNS: His temperature is 96.8, pulse is 56, respiration 20, blood pressure 160/89, pulse ox 94. HEENT: PERRLA. NECK: No JVD. No lymphadenopathy. CHEST: Clear to auscultation and palpation. CARDIOVASCULAR: S1, S2. No murmur. ABDOMEN: Abdomen is soft, obese. Bowel sounds are present. Tender in the periumbilical area and left upper quadrant. CLINICAL BUSINESS MANAGER: Awake, alert, oriented x3. He has a shunt on the right side going to his abdomen. IMAGING His abdominal CT which was done on admission showed shunt tubing coiled within the abdomen and terminating within the left upper quadrant. A few rounded radiopaque foreign bodies in the colon, one in the cecum and one in the descending colon, most likely ingested foreign body. The shunt study showed intact shunt. Further investigation will be done next week. IMPRESSION 1. Mr. Kevin is a 66-year-old gentleman admitted with nausea, abdominal pain, felt to be possible side effect from medication, also suspicious for possible blocked shunt. 2. Foreign body in the colon, most likely ingested foreign body. 3. Change in bowel habits, unclear etiology at this time. Further investigation needed. 4. Increased liver enzymes. Unclear etiology at this time. We are going to send additional blood work. Suspect possible fatty liver. Doubt this is related to current symptoms. RECOMMENDATIONS 1. Stool studies for ova and parasites, C. diff. 2. We are going to send hepatitis profile, additional lab work to further investigate the elevation of the liver enzymes. 3. Abdominal x-ray to further evaluate the foreign body in his colon. 4. A full liquid diet. 5. Agree with evaluation of the shunt. 6. A right upper quadrant ultrasound to evaluate for possible gallstones or sludge. If this is negative and the patient continues to have issues, consider HIDA scan. Also, may consider upper endoscopy and colonoscopy if no improvement in his symptoms. I would like to thank Dr. Declan Felder for referring him to our office for consultation. MD CHRISTIANO mAaya/COREY /4:20 PM /4:35 PM MTDChristoph
[2016-08-01] MEDS: TOPIRAMATE 25 MG TAB PO SCH (18:30)
[2016-08-01] MEDS: TAMSULOSIN HCL 0.4 MG CAP PO SCH (20:46)
[2016-08-01] MEDS: ACETAMINOPHEN/HYDROcodone 325 MG/5 MG TAB PO PRN (20:47)
[2016-08-02] VITALS (7 sets, daily range): BP systolic 94–138; BP diastolic 65–87; PULSE 50–66; RESP 16–32; TEMP 96.2–97.8; O2SAT 92–97
[2016-08-02 06:19] LABS: ALT (GPT) 104 U/L (12-78); ANION GAP 4 MEQ/L (5-15); AST (GOT) 41 U/L (15-37); BICARBONATE 29.6 MEQ/L (21.0-32.0); BLOOD UREA NITROGEN 10 MG/DL (7-18); CHLORIDE 110 MEQ/L (98-107); GLOMERULAR FILTRATION RATE 59 ML/MIN (>89); POTASSIUM 3.7 MEQ/L (3.5-5.1); SODIUM (NA) 144 MEQ/L (136-145)
[2016-08-02 06:21] LABS: ALKALINE PHOSPHATASE 78 U/L (45-117); TOTAL BILIRUBIN ADULT 0.9 MG/DL (0.2-1.0)
[2016-08-02 06:31] LABS: AUTOMATED NEUTROPHIL # 3.6 TH/MM3 (1.8-7.7); BASOPHIL # 0.1 TH/MM3 (0-0.2); BASOPHIL % 0.9 % (0.0-2.0); EOSINOPHIL # 0.5 TH/MM3 (0-0.4); EOSINOPHIL % 6.5 % (0.0-4.0); HEMATOCRIT 45.8 % (39.0-51.0); HEMO FLAGS DIFF FINAL; LYMPH % 36.9 % (9.0-44.0); LYMPHOCYTE # 3.1 TH/MM3 (1.0-4.8); MEAN CELL VOLUME 87.6 FL (80.0-100.0); MEAN CORPUSCULAR HEMOGLOBIN 30.5 PG (27.0-34.0); MEAN CORPUSCULAR HGB CONC 34.8 % (32.0-36.0); MONO % 12.6 % (0.0-8.0); NEUT % 43.1 % (16.0-70.0); PLATELET COUNT 215 TH/MM3 (150-450); RED BLOOD COUNT 5.23 MIL/MM3 (4.50-5.90); RED CELL DISTRIBUTION WIDTH 13.4 % (11.6-17.2); WHITE BLOOD COUNT 8.3 TH/MM3 (4.0-11.0)
[2016-08-02] MEDS: LISINOPRIL 10 MG TAB PO SCH (08:10)
[2016-08-02] MEDS: METOPROLOL TARTRATE 50 MG TAB PO SCH ×2 (08:10→19:59)
[2016-08-02] MEDS: ACETAMINOPHEN/HYDROcodone 325 MG/5 MG TAB PO PRN (09:28)
[2016-08-02] MEDS: ALPRAZolam 0.25 MG TAB PO PRN ×3 (09:28→19:59)
--- NOTE | 2016-08-02 10:23 | RADRPT ---
EXAM DATE/TIME: 08/02/2016 08:30 [facility] COMPARISON: CT ABDOMEN & PELVIS W CONTRAST, July 30, 2016, 8:14. INDICATIONS : Elevated liver enzymes. MEDICAL HISTORY : Hypertension. Hypercholesterolemia. Hydrocephalus. Hyperlipidemia. Colitis. SURGICAL HISTORY : Cholecystectomy. DELI WORKER shunt. ENCOUNTER: Initial ACUITY: 1 day PAIN SCORE: 0/10 LOCATION: Bilateral upper quadrant MEASUREMENTS: LIVER: 19.2 cm length COMMON DUCT: 11 mm RIGHT KIDNEY: 10.1 x 5.6 x 6.1 cm SPLEEN: 10.6 cm length FINDINGS: LIVER: Normal echotexture without focal lesion or ductal dilatation. There is some fatty infiltration throug hout the liver. The liver is mildly enlarged. There is no evidence of ascites. The portal system is p atent. COMMON DUCT: No intraluminal mass or stone visualized. GALLBLADDER: Surgically removed PANCREAS: Not well visualized RIGHT KIDNEY: No evidence of hydronephrosis. There is a 9 mm stone in the midpole. This is not causing obstruction. SPLEEN: No focal lesion. CONCLUSION: 1. Mild fatty infiltration of the liver. 2. 9 mm nonobstructing stone mid pole right kidney. Sha Galdamez MD on August 02, 2016 at 10:18 Board Certified Radiologist. This report was verified electronically.
--- NOTE | 2016-08-02 10:31 | HHI.PR ---
Subjective History of Present Illness Patient abdomial pain and diarrhea.. resolved... no acute issue Neurosurgery input noted.. Hx of cerebral aneurysm. Follow up MRI/MRA is pending early next week. The valve will be re adjusted after the MRI Review of Systems Constitutional Constitutional: Fatigue, Weakness GI/Abdomen GI/Abdominal Exam: Diarrhea, Abdominal Pain Neurologic Neurologic: Headache Vitals/Results Intake & Output 08/01/16 08/01/16 08/02/16 15:00 23:00 07:00 Intake Total 120 ml 480 ml 0 ml Balance 120 ml 480 ml 0 ml Intake Oral 120 ml 480 ml IV Total 0 ml # Voids 2 Vital Signs Vital Signs Date Time Temp Pulse Resp B/P Pulse Ox O2 Delivery O2 Flow Rate FiO2 08/02/16 07:49 97.3 61 20 114/70 92 08/02/16 04:00 96.8 55 18 94/87 93 08/02/16 00:00 96.2 57 16 116/74 94 08/01/16 20:00 59 08/01/16 20:00 97.3 60 22 146/76 96 08/01/16 16:17 97.2 55 20 163/89 96 08/01/16 12:12 96.8 56 20 160/89 94 CBC/BMP: 08/02/16 0533 08/02/16 0533 Lab Results Laboratory Tests Test 08/02/16 05:33 White Blood Count 8.3 TH/MM3 Red Blood Count 5.23 MIL/MM3 Hemoglobin 15.9 GM/DL Hematocrit 45.8 % Mean Corpuscular Volume 87.6 FL Mean Corpuscular Hemoglobin 30.5 PG Mean Corpuscular Hemoglobin 34.8 % Concent Red Cell Distribution Width 13.4 % Platelet Count 215 TH/MM3 Mean Platelet Volume 9.0 FL Neutrophils (%) (Auto) 43.1 % Lymphocytes (%) (Auto) 36.9 % Monocytes (%) (Auto) 12.6 % Eosinophils (%) (Auto) 6.5 % Basophils (%) (Auto) 0.9 % Neutrophils # (Auto) 3.6 TH/MM3 Lymphocytes # (Auto) 3.1 TH/MM3 Monocytes # (Auto) 1.0 TH/MM3 Eosinophils # (Auto) 0.5 TH/MM3 Basophils # (Auto) 0.1 TH/MM3 CBC Comment DIFF FINAL Differential Comment Sodium Level 144 MEQ/L Potassium Level 3.7 MEQ/L Chloride Level 110 MEQ/L Carbon Dioxide Level 29.6 MEQ/L Anion Gap 4 MEQ/L Blood Urea Nitrogen 10 MG/DL Creatinine 1.23 MG/DL Estimat Glomerular Filtration 59 ML/MIN Rate Random Glucose 99 MG/DL Calcium Level 9.3 MG/DL Total Bilirubin 0.9 MG/DL Aspartate Amino Transf 41 U/L (AST/SGOT) Alanine Aminotransferase 104 U/L (ALT/SGPT) Alkaline Phosphatase 78 U/L Total Protein 7.2 GM/DL Albumin 3.9 GM/DL Physical Exam General General Appearance: No Acute Distress, Comfortable Eyes Eye Exam: Pupils Equal, Pupils Reactive, Sclera White, Extraocular Movement Intact Throat Throat Exam: Oral Mucosa [place] & Moist, Oral Pharynx Normal Neck Neck Exam: Neck Supple, Trachea Midline Pulmonary Resp Exam: Clear Bilaterally, Breath Sounds Equal, No Distress Cardiology CV Exam: Regular, Normal Sinus Rhythm, Good Perfusion Gastrointestinal/Abdomen GI Exam: Soft, Bowel Sounds Present Musculoskeletal MS Exam: Normal Tone Integumentary Skin Exam: Warm, Dry Extremeties Extremities Exam: No Edema Neurologic Neuro Exam: Alert, Awake, Oriented, Speech Clear, Moving All Extremities, No Focal Deficits Psychiatric Psych Exam: Appropriate Responses VTE Prophylaxis VTE Remarks Eliquis. PUD Prophylasis PUD Prophylaxis: Protonix Assessment/Plan Assessment/Plan ASSESSMENT/PLAN 1. This is 66-year male who came to the emergency room diagnosed with abdominal pain and nausea, lipase is normal. started on regular diet. CT abdomen and pelvis was done, shows three radiopaque foreign bodies within the colon. resolved. 2. Hx of cerebral aneurysm. History of MACADAM RAKER shunt placement, neurosurgery input noted for further recommendation. Follow up MRI/MRA is pending early next week. The valve will be re adjusted after the MRI The patient is status post fall. CT brain shows mild ventriculomegaly, other than that nothing acute. Further recommendation per neurosurgeon. 3. History of hypertension. Continue home medication. 4. History of stroke in the past. The patient is on Eliquis. 5. History of hyperlipidemia. Continue with Lipitor 10 mg p.o. daily. 6. History of anxiety. Continue with buspirone 10 mg by mouth TID. 7. Benign prostatic hypertrophy Continue Flomax 0.4 mg q.h.s. 8. History of hypertension. Continue with lisinopril and metoprolol. 9. DVT prophylaxis. Eliquis 10. GI prophylaxis Protonix 40 mg p.o. daily. Check CBC with diff CMP in AM. We are going to manage the patient on daily basis and make recommendation on daily basis. Discussed Condition with: Patient Luis Felder MD Aug 02, 2016 10:31
[2016-08-02 12:07] LABS: C. DIFF EPI 027 PRESUMPTIVE NEGATIVE (NEGATIVE); C. DIFF TOXIN PCR NEGATIVE (NEGATIVE)
--- NOTE | 2016-08-02 13:29 | HHI.GIFU ---
GI Follow-up Note Consult Follow-up Subjective: Patient laying in bed comfortably, feeling better. No nausea, vomiting, abdominal pain.Awaiting shunt evaluation in am .Previously seen colonic foreign bodies not visualized anymore on abdominal x-ray Objective: PHYSICAL EXAMINATION: Vitals signs stable No fever Vital Signs Date Time Temp Pulse Resp B/P Pulse Ox O2 Delivery O2 Flow Rate FiO2 08/02/16 12:16 96.8 50 20 132/75 97 08/02/16 08:00 54 08/02/16 07:49 97.3 61 20 114/70 92 HEENT: Pupils round and reactive to light; normocephalic; atraumatic; no jaundice. Throat is clear. NECK: Neck is supple, no JVD, no lymphadenopathy. CHEST: Chest is clear to auscultation and percussion. CARDIAC: Regular rate and rhythm with no murmur gallop or rubs. ABDOMEN: Soft, nondistended, nontender; no hepatosplenomegaly; bowel sounds are present in all four quadrants. EXTREMITIES: No clubbing, cyanosis, or edema. SKIN: Normal; no rash; no jaundice. WASTE MACHINE OPERATOR: No focal deficits; alert and oriented times three. Available Data (labs, X- Rays, Procedues) : Laboratory Tests Test 07/31/16 08/02/16 08/02/16 15:40 05:33 10:37 Urine Opiates Screen NEG Urine Barbiturates Screen NEG Urine Amphetamines Screen NEG Urine Benzodiazepines Screen NEG Urine Cocaine Screen NEG Urine Cannabinoids Screen NEG White Blood Count 8.3 TH/MM3 Red Blood Count 5.23 MIL/MM3 Hemoglobin 15.9 GM/DL Hematocrit 45.8 % Mean Corpuscular Volume 87.6 FL Mean Corpuscular Hemoglobin 30.5 PG Mean Corpuscular Hemoglobin 34.8 % Concent Red Cell Distribution Width 13.4 % Platelet Count 215 TH/MM3 Mean Platelet Volume 9.0 FL Neutrophils (%) (Auto) 43.1 % Lymphocytes (%) (Auto) 36.9 % Monocytes (%) (Auto) 12.6 % Eosinophils (%) (Auto) 6.5 % Basophils (%) (Auto) 0.9 % Neutrophils # (Auto) 3.6 TH/MM3 Lymphocytes # (Auto) 3.1 TH/MM3 Monocytes # (Auto) 1.0 TH/MM3 Eosinophils # (Auto) 0.5 TH/MM3 Basophils # (Auto) 0.1 TH/MM3 CBC Comment DIFF FINAL Differential Comment Sodium Level 144 MEQ/L Potassium Level 3.7 MEQ/L Chloride Level 110 MEQ/L Carbon Dioxide Level 29.6 MEQ/L Anion Gap 4 MEQ/L Blood Urea Nitrogen 10 MG/DL Creatinine 1.23 MG/DL Estimat Glomerular Filtration 59 ML/MIN Rate Random Glucose 99 MG/DL Calcium Level 9.3 MG/DL Total Bilirubin 0.9 MG/DL Aspartate Amino Transf 41 U/L (AST/SGOT) Alanine Aminotransferase 104 U/L (ALT/SGPT) Alkaline Phosphatase 78 U/L Total Protein 7.2 GM/DL Albumin 3.9 GM/DL Stool C. difficile Toxin (PCR) NEGATIVE Stl C. difficile Toxin PRESUMPTIVE Epiderm 027 NEGATIVE ASSESSMENT/PLAN: nausea, vomiting most likely side effect from medication and possible malfunction of HACK DRIVER shunt change in bowel habits-resolved abdominal pain-resolved , most likely secondary vp of digital marketing shunt elevated lfts-secondary fatty liver-improving colonic foreign bodies-resolved Recommendations await evaluation of HACK DRIVER shunt in am will need egd/colonoscopy once cleared by neurosurgery, this can be done op if persistent symptoms after shunt revision we will consider egd/colon during this hospitalization if dc fu office It was a pleasure seeing Dru Kevin. Thank you for this consult. Entered by: Larissa Grace MD Aug 02, 2016 13:28
[2016-08-02] MEDS: PANTOPRAZOLE SODIUM 40 MG VIAL IV PUSH SCH (14:11)
[2016-08-02] MEDS: TOPIRAMATE 25 MG TAB PO SCH (18:18)
[2016-08-02] MEDS: TAMSULOSIN HCL 0.4 MG CAP PO SCH (19:59)
[2016-08-03] VITALS: BP 95/54; PULSE 70; RESP 16; TEMP 98.7; O2SAT 93
[2016-08-03 04:00] VITALS: BP 121/65; PULSE 60; RESP 16; TEMP 98.8; O2SAT 93
[2016-08-03 07:46] LABS: AUTOMATED NEUTROPHIL # 4.1 TH/MM3 (1.8-7.7); BASOPHIL # 0.1 TH/MM3 (0-0.2); BASOPHIL % 1.1 % (0.0-2.0); EOSINOPHIL # 0.7 TH/MM3 (0-0.4); HEMATOCRIT 47.8 % (39.0-51.0); HEMO FLAGS DIFF FINAL; LYMPH % 32.4 % (9.0-44.0); LYMPHOCYTE # 2.8 TH/MM3 (1.0-4.8); MEAN CELL VOLUME 87.9 FL (80.0-100.0); MEAN CORPUSCULAR HEMOGLOBIN 30.5 PG (27.0-34.0); MEAN CORPUSCULAR HGB CONC 34.7 % (32.0-36.0); MONO % 10.7 % (0.0-8.0); NEUT % 47.8 % (16.0-70.0); PLATELET COUNT 220 TH/MM3 (150-450); RED BLOOD COUNT 5.44 MIL/MM3 (4.50-5.90); RED CELL DISTRIBUTION WIDTH 13.7 % (11.6-17.2); WHITE BLOOD COUNT 8.6 TH/MM3 (4.0-11.0)
[2016-08-03 07:55] VITALS: BP 116/71; PULSE 59; RESP 20; TEMP 97.2; O2SAT 93
--- NOTE | 2016-08-03 08:07 | HHI.PR ---
Subjective History of Present Illness Patient feel a lot better. no acute issue Neurosurgery input noted.. Hx of cerebral aneurysm. s/p MRI/MRA ..noted..ok to dc home today if ok with neurosurgery, Review of Systems Constitutional Constitutional: Fatigue, Weakness GI/Abdomen GI/Abdominal Exam: Diarrhea, Abdominal Pain Neurologic Neurologic: Headache Vitals/Results Intake & Output 08/02/16 08/02/16 08/03/16 15:00 23:00 07:00 Intake Total 240 ml 60 ml Balance 240 ml 60 ml Intake Oral 240 ml 60 ml # Voids 2 2 # Bowel Movements 2 Vital Signs Vital Signs Date Time Temp Pulse Resp B/P Pulse Ox O2 Delivery O2 Flow Rate FiO2 08/03/16 07:55 97.2 59 20 116/71 93 08/03/16 04:00 98.8 60 16 121/65 93 08/03/16 00:00 98.7 70 16 95/54 93 08/02/16 20:00 97.8 61 32 119/65 93 08/02/16 20:00 57 08/02/16 16:34 96.4 56 20 138/74 97 08/02/16 12:16 96.8 50 20 132/75 97 CBC/BMP: 08/03/16 0645 08/02/16 0533 Lab Results Laboratory Tests Test 08/02/16 08/03/16 10:37 06:45 Stool C. difficile Toxin (PCR) NEGATIVE Stl C. difficile Toxin PRESUMPTIVE Epiderm 027 NEGATIVE White Blood Count 8.6 TH/MM3 Red Blood Count 5.44 MIL/MM3 Hemoglobin 16.6 GM/DL Hematocrit 47.8 % Mean Corpuscular Volume 87.9 FL Mean Corpuscular Hemoglobin 30.5 PG Mean Corpuscular Hemoglobin 34.7 % Concent Red Cell Distribution Width 13.7 % Platelet Count 220 TH/MM3 Mean Platelet Volume 9.1 FL Neutrophils (%) (Auto) 47.8 % Lymphocytes (%) (Auto) 32.4 % Monocytes (%) (Auto) 10.7 % Eosinophils (%) (Auto) 8.0 % Basophils (%) (Auto) 1.1 % Neutrophils # (Auto) 4.1 TH/MM3 Lymphocytes # (Auto) 2.8 TH/MM3 Monocytes # (Auto) 0.9 TH/MM3 Eosinophils # (Auto) 0.7 TH/MM3 Basophils # (Auto) 0.1 TH/MM3 CBC Comment DIFF FINAL Differential Comment Microbiology Microbiology 08/02/16 - Final, Complete NO ENTERIC PATHOGENS DETECTED BY PCR... 08/02/16 Cryptosporidium Exam, Received Pending 08/02/16 Giardia Antigen (KALEB), Received Pending Physical Exam General General Appearance: No Acute Distress, Comfortable Eyes Eye Exam: Pupils Equal, Pupils Reactive, Sclera White, Extraocular Movement Intact Throat Throat Exam: Oral Mucosa [place] & Moist, Oral Pharynx Normal Neck Neck Exam: Neck Supple, Trachea Midline Pulmonary Resp Exam: Clear Bilaterally, Breath Sounds Equal, No Distress Cardiology CV Exam: Regular, Normal Sinus Rhythm, Good Perfusion Gastrointestinal/Abdomen GI Exam: Soft, Bowel Sounds Present Musculoskeletal MS Exam: Normal Tone Integumentary Skin Exam: Warm, Dry Extremeties Extremities Exam: No Edema Neurologic Neuro Exam: Alert, Awake, Oriented, Speech Clear, Moving All Extremities, No Focal Deficits Psychiatric Psych Exam: Appropriate Responses VTE Prophylaxis VTE Remarks Eliquis. PUD Prophylasis PUD Prophylaxis: Protonix Assessment/Plan Assessment/Plan ASSESSMENT/PLAN 1. This is 66-year male who came to the emergency room diagnosed with abdominal pain and nausea, lipase is normal. on regular diet. CT abdomen and pelvis was done, shows three radiopaque foreign bodies within the colon. resolved. 2. Hx of cerebral aneurysm. History of AUTOMOTIVE ALIGNMENT SPECIALIST shunt placement, neurosurgery input noted for further recommendation. s/p MRI/MRA ..noted. The patient is status post fall. CT brain shows mild ventriculomegaly, other than that nothing acute. Further recommendation per neurosurgeon. 3. History of hypertension. Continue home medication. 4. History of stroke in the past. The patient is on Eliquis. 5. History of hyperlipidemia. Continue with Lipitor 10 mg p.o. daily. 6. History of anxiety. Continue with buspirone 10 mg by mouth TID. 7. Benign prostatic hypertrophy Continue Flomax 0.4 mg q.h.s. 8. History of hypertension. Continue with lisinopril and metoprolol. 9. DVT prophylaxis. Eliquis 10. GI prophylaxis Protonix 40 mg p.o. daily. ok to dc home today if ok with neurosurgery, f/u with PCP/Neurosurgery 1 week. Discussed Condition with: Patient Luis Felder MD Aug 03, 2016 08:07 Luis Felder MD Aug 03, 2016 08:07
[2016-08-03 08:10] LABS: ALT (GPT) 89 U/L (12-78); ANION GAP 7 MEQ/L (5-15); AST (GOT) 29 U/L (15-37); BICARBONATE 25.8 MEQ/L (21.0-32.0); BLOOD UREA NITROGEN 18 MG/DL (7-18); CHLORIDE 108 MEQ/L (98-107); GLOMERULAR FILTRATION RATE 64 ML/MIN (>89); POTASSIUM 3.6 MEQ/L (3.5-5.1); SODIUM (NA) 141 MEQ/L (136-145)
[2016-08-03 08:12] LABS: ALKALINE PHOSPHATASE 73 U/L (45-117); TOTAL BILIRUBIN ADULT 0.6 MG/DL (0.2-1.0)
[2016-08-03] MEDS: METOPROLOL TARTRATE 50 MG TAB PO SCH (08:22)
[2016-08-03] MEDS: LISINOPRIL 10 MG TAB PO SCH (08:22)
[2016-08-03] MEDS: ALPRAZolam 0.25 MG TAB PO PRN ×2 (08:23→13:58)
--- NOTE | 2016-08-03 09:44 | HHI.GIFU ---
Subjective Remarks Up in chair. States all of his GI symptoms- n/v, bowel changes have resolved and he is anxious to go home today and does not want to pursue any GI workup as inpatient. (Nellie Post) Objective Vitals I&O Vital Signs Date Time Temp Pulse Resp B/P Pulse Ox O2 Delivery O2 Flow Rate FiO2 08/03/16 07:55 97.2 59 20 116/71 93 08/03/16 04:00 98.8 60 16 121/65 93 08/03/16 00:00 98.7 70 16 95/54 93 08/02/16 20:00 97.8 61 32 119/65 93 08/02/16 20:00 57 08/02/16 16:34 96.4 56 20 138/74 97 08/02/16 12:16 96.8 50 20 132/75 97 I/O 08/02/16 08/02/16 08/02/16 08/03/16 08/03/16 08/03/16 07:00 15:00 23:00 07:00 15:00 23:00 Intake Total 0 ml 240 ml 60 ml Balance 0 ml 240 ml 60 ml Intake Oral 240 ml 60 ml IV Total 0 ml # Voids 2 2 # Bowel Movements 2 Laboratory Laboratory Tests Test 08/02/16 08/03/16 10:37 06:45 Stool C. difficile Toxin (PCR) NEGATIVE Stl C. difficile Toxin PRESUMPTIVE Epiderm 027 NEGATIVE White Blood Count 8.6 Red Blood Count 5.44 Hemoglobin 16.6 Hematocrit 47.8 Mean Corpuscular Volume 87.9 Mean Corpuscular Hemoglobin 30.5 Mean Corpuscular Hemoglobin 34.7 Concent Red Cell Distribution Width 13.7 Platelet Count 220 Mean Platelet Volume 9.1 Neutrophils (%) (Auto) 47.8 Lymphocytes (%) (Auto) 32.4 Monocytes (%) (Auto) 10.7 Eosinophils (%) (Auto) 8.0 Basophils (%) (Auto) 1.1 Neutrophils # (Auto) 4.1 Lymphocytes # (Auto) 2.8 Monocytes # (Auto) 0.9 Eosinophils # (Auto) 0.7 Basophils # (Auto) 0.1 CBC Comment DIFF FINAL Differential Comment Sodium Level 141 Potassium Level 3.6 Chloride Level 108 Carbon Dioxide Level 25.8 Anion Gap 7 Blood Urea Nitrogen 18 Creatinine 1.14 Estimat Glomerular Filtration 64 Rate Random Glucose 94 Calcium Level 9.0 Total Bilirubin 0.6 Aspartate Amino Transf 29 (AST/SGOT) Alanine Aminotransferase 89 (ALT/SGPT) Alkaline Phosphatase 73 Total Protein 6.8 Albumin 3.7 Date/Time Procedure Status Source Growth 08/02/16 10:37 Cryptosporidium Exam Received Stool Stool Pending 08/02/16 10:37 Giardia Antigen (KALEB) Received Stool Stool Pending 08/02/16 10:37 - Final Complete Stool Stool NO ENTERIC PATHOGENS DETECTED BY PCR... Imaging Last Impressions Liver Ultrasound 08/02/16 0000 Signed Impressions: Service Date/Time: Tuesday, August 02, 2016 08:30 - CONCLUSION: 1. Mild fatty infiltration of the liver. 2. 9 mm nonobstructing stone mid pole right kidney. Sha Galdamez MD Abdomen X-Ray 08/01/16 0000 Signed Impressions: Service Date/Time: Monday, August 01, 2016 15:31 - CONCLUSION: The only possible radiopaque foreign body seen is only seen on one of the views and is located in the left upper quadrant, possibly representing a tubing connector. Recommend correlation with clinical exam. Oumar Bain MD Abdomen/Pelvis CT 07/30/16 0722 Signed Impressions: Service Date/Time: July 08:14 - CONCLUSION: 1. Shunt tubing coiled within the abdomen and terminating within the left upper quadrant with the tubing abutting the peritoneum of the left upper quadrant. 2. 2 rounded 1.7 cm radiopaque foreign bodies within the colon, one within the cecum and one within the descending colon which appear to be ingested foreign bodies. Arielle Lane MD Skull X-Ray 07/30/16 0000 Signed Impressions: Service Date/Time: July 10:01 - CONCLUSION: METAL SPRAY OPERATOR shunt is set at P/L 1.0. Please see reference chart that has been scanned in with this examination to determine flow rate and pressure settings, if needed. Please also ensure that this does represent a [employer] Strata device. Torsten Contreras MD Shunt Study (Imaging) 07/30/16 0000 Signed Impressions: Service Date/Time: July 07:45 - CONCLUSION: Intact shunt. Arielle Lane MD Head CT 07/30/16 0000 Signed Impressions: Service Date/Time: July 08:06 - CONCLUSION: 1. No fracture or acute intracranial abnormality is identified. 2. Right parietal region METAL SPRAY OPERATOR shunt is present. There is mild ventriculomegaly. Since no prior imaging study is available to compare, the ventricle size is of uncertain chronicity. Suggest correlation with any prior imaging studies to assess for change. Torsten Contreras MD Physical Exam HEENT:Normocephalic; atraumatic; no jaundice. CHEST: CTA CARDIAC: RRR ABDOMEN: Soft, nondistended, nontender; no hepatosplenomegaly; bowel sounds are present in all four quadrants. EXTREMITIES: No clubbing, cyanosis, or edema. SKIN: Normal; no rash; no jaundice. FLARE MAKER: No focal deficits; alert and oriented times three. (Nellie Post) Assessment and Plan Plan ASSESSMENT: - N/V, likely side effect from medication, possible malfunction of METAL SPRAY OPERATOR shunt. Resolved. Liver Ultrasound (08/02/16)----> 1. Mild fatty infiltration of the liver. 2. 9 mm nonobstructing stone mid pole right kidney. Abdomen X-Ray (08/01/16)-----> The only possible radiopaque foreign body seen is only seen on one of the views and is located in the left upper quadrant, possibly representing a tubing connector. Recommend correlation with clinical exam. Abdomen/Pelvis CT (07/30/16)-----> 1. Shunt tubing coiled within the abdomen and terminating within the left upper quadrant with the tubing abutting the peritoneum of the left upper quadrant. 2. 2 rounded 1.7 cm radiopaque foreign bodies within the colon, one within the cecum and one within the descending colon which appear to be ingested foreign bodies. - Change in bowel habits. Resolved. - Abdominal pain. Resolved - Elevated lfts-secondary fatty liver. US with mild fatty infiltration of the liver. Improving. - Colonic foreign bodies-resolved Recommendations: - RAQUEL - PPI - Recommend EGD/Colonoscopy- patient understands but does not want to pursue as inpatient. Given the fact that his GI symptoms have resolved, this can be done as outpatient - FU ANNA 2 weeks - Pt seen and examined by Dr. Fontana and myself and this note is written on his behalf (Nellie Post) Physician Comments Patient seen and examined Agree with above Continue with current supportive care Monitor labs Follow-up with GI as outpatient consideration for endoscopy colonoscopy ( Adrian Fontana MD) Nellie Post Aug 03, 2016 09:44 Adrian Fontana MD Aug 03, 2016 23:22
[2016-08-03] MEDS ORDERED: GADODIAMIDE PF 287 MG/ML 20 ML VIAL (for RAD MRI) IV ONE (11:44)
--- NOTE | 2016-08-03 12:11 | RADRPT ---
EXAM DATE/TIME: 08/03/2016 11:25 [facility] COMPARISON: CT BRAIN W/O CONTRAST, July 30, 2016, 8:06. INDICATIONS : Aneurysm. MEDICAL HISTORY : None. SURGICAL HISTORY : Cholecystectomy. Programmable shunt, nose ENCOUNTER: Subsequent ACUITY: 4-6 days PAIN SCORE: 0/10 LOCATION: cranial Please note a normal MRA of the brain does not entirely exclude the possibility of a small aneurysm, nor the possibility of distal intracranial vessel disease. TECHNIQUE: 3D time of flight MRA was performed. Source images, multiplanar STS MIP, and 3D volum e MIP reconstructions were reviewed. FINDINGS: There is excellent visualization of the major intracranial arteries out to the third and fourth order branch vessels. There is no evidence for aneurysm and no evidence for vascular malformation. There is suggestion of elongated luminal defect in the left M1 segment could represent thrombus without obs truction CONCLUSION: Suggestion of elongated defect possible thrombus in the M1 segment on the left. This should be further evaluated with CTA of the brain Rishi Diego MD on August 03, 2016 at 12:06 Board Certified Radiologist. This report was verified electronically.
--- NOTE | 2016-08-03 12:14 | RADRPT ---
EXAM DATE/TIME: 08/03/2016 11:25 [facility] COMPARISON: CT BRAIN W/O CONTRAST, July 30, 2016, 8:06. MRA BRAIN W/O CONTRAST, August 03, 2016, 11:25. INDICATIONS : Aneurysm. CONTRAST: 19 cc Omniscan (gadodiamide) IV MEDICAL HISTORY : None. SURGICAL HISTORY : Cholecystectomy. Programmable shunt placement, nose ENCOUNTER: Subsequent ACUITY: 4-6 days PAIN SCORE: 0/10 LOCATION: cranial TECHNIQUE: Multiplanar, multisequence MRI of the brain was performed both prior to and following the administrat ion of paramagnetic contrast. FINDINGS: CEREBRUM: The ventricles are prominent with normal sulci.. No evidence of midline shift, mass lesion, hemorrha ge or acute infarction. No extraaxial fluid collections are seen. The pituitary gland and suprasell ar cistern are normal in configuration. Right ventriculoperitoneal shunt in place WHITE MATTER: No significant signal abnormalities are seen in the white matter. POSTERIOR FOSSA: The cerebellum and brainstem are intact. The 4th ventricle is midline. The cerebellopontine angle is unremarkable. The cerebellar tonsils are normal in position. DIFFUSION IMAGING: No focal areas of restricted diffusion are seen. No evidence of acute infarction. EXTRACRANIAL: The visualized portions of the orbits and paranasal sinuses are unremarkable. POST-CONTRAST: No abnormal areas of parenchymal or dural enhancement. No evidence of blood-brain barrier breakdown. CONCLUSION: Right ventricular shunt in place. Prominent ventricles with normal sulci. No acute intracranial abnor mality.. Rishi Diego MD on August 03, 2016 at 12:11 Board Certified Radiologist. This report was verified electronically.
--- NOTE | 2016-08-03 12:35 | RADRPT ---
EXAM DATE/TIME: 08/03/2016 10:42 [facility] COMPARISON: SKULL (1VW), July 30, 2016, 10:01. INDICATIONS : Pre and post mri shunt films MEDICAL HISTORY : Stroke. seizures SURGICAL HISTORY : shunt ENCOUNTER: Initial ACUITY: 4 - 6 days PAIN SCORE: 0/10 LOCATION: Bilateral skull FINDINGS: Pre MRI of the shunt setting was 1.0. Post MRI the shunt setting is 2.0. CONCLUSION: Change of shunt setting and MRI as described above. Ernie Mehta MD FACR on August 03, 2016 at 12:30 Board Certified Radiologist. This report was verified electronically.
[2016-08-03] MEDS: PANTOPRAZOLE SODIUM 40 MG VIAL IV PUSH SCH ×2 (12:53→12:57)
--- NOTE | 2016-08-03 13:04 | HHI.NSPN ---
History Chief Complaint: none Interval History 66 yr old gentleman admitted with vomiting and headache. Drug interaction was found and the buspar was stopped. He is improved and ready to start taking po. He has no new gait instability or focal problems. Review of Systems General: Negative for: fever, chills, insomnia Respiratory: Negative for: shortness of breath, cough, sputum Gastrointestinal: Negative for: nausea, vomitting, diarrhea, constipation Exam Results Vital Signs Date Time Temp Pulse Resp B/P Pulse Ox O2 Delivery O2 Flow Rate FiO2 08/03/16 07:55 97.2 59 20 116/71 93 07/30/16 19:31 Room Air Intake and Output 08/02/16 08/02/16 08/03/16 08:00 16:00 00:00 Intake Total 0 ml 240 ml 60 ml Balance 0 ml 240 ml 60 ml Physical Examination Alert, face symmetric, head atraumatic, appears comfortable Sitting on a chair and smiling, transfers with no difficulty, Moves all extremities with normal strength Lab, Micro, Other Results MRI/MRA of the brain shows no aneurysm, no hemosiderin abnormality consistent with previous hemorrhage. The strata valve was reprogrammed to 1.0 Medical Decision Making Impression and Plan 1- Headache/Vomiting: probable drug interaction. He is now off the buspar and a low dose topamax is initiated. 2- Hx of cerebral aneurysm. Follow up MRI/MRA is negative for aneurysm. The valve was re adjusted after the MRI. He can follow up in the office to review films or if he has further headaches. Pancho Graf Aug 03, 2016 13:04
[2016-08-03] MEDS ORDERED: TOPA25TA8 PO (13:05)
[2016-08-03 13:24] VITALS: PULSE 60
[2016-08-03 14:29] LABS: ANA SCREEN NEG (NEG)
[2016-08-05 03:54] LABS: IGA SERUM 245 mg/dL (81-463); TISSUE TRANSGLUTAMINASE AB IGG ND U/mL (())
[2016-08-06 13:52] LABS: ENDOMYSIAL AB TITER ND (<1:5); TISSUE TRANSGLUTAMINASE AB LESS THAN 1 U/mL (())
[2016-08-08 23:58] LABS: MITOCHONDRIAL ABS LESS THAN 20.0 U (())
--- NOTE | 2016-08-09 20:42 | MD ---
cc: LUIS MARCUM MD ADMISSION DATE: 07/30/2016 DISCHARGE DATE: 08/03/2016 Okay to discharge the patient home. CONDITION AT THE TIME OF DISCHARGE: Satisfactory. DISCHARGE ACTIVITY: As tolerated. DISCHARGE DIET: Cardiac diet. 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 DISCHARGE MEDICATIONS: Include 1. Topamax 50 milligrams p.o. daily. 2. Eliquis 5 milligrams p.o. twice a day. 3. Lipitor 10 milligrams p.o. daily. 4. Lisinopril 10 milligrams p.o. daily. 5. Metoprolol 50 milligrams twice a day. 6. Flomax 0.4 milligrams p.o. at bedtime. FOLLOWUP: The patient was advised to follow with primary care physician, GI and neurosurgery in one week. ADMITTING DIAGNOSIS: 1. Abdominal pain, which has resolved. 2. History of cerebral aneurysm. 3. 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 Neurosurgery has seen the patient who is status post MRI and MRA. Okay to discharge per neurosurgery. 4. History of hypertension. 5. History of stroke in the past. 6. History of hyperlipidemia. 7. History of anxiety. 8. History of benign prostate hypertrophy. 9. History of hypertension. HOSPITAL COURSE: This is a 66-year-old male who came to the emergency room diagnosed with abdominal pain and nausea. Lipase was normal. The patient was on a regular diet. CT of the abdomen and pelvis was done and showed three radiopaque foreign bodies within the colon. The patient remained stable. No acute event happened. The patient was discharged in satisfactory condition. The patient was advised to have EGD and colonoscopy. He does not want to pursue this as an inpatient and wanted to it as an outpatient. The patient otherwise remained stable. No acute event happened. MRI of the brain done shows right ventricular shunt in place, prominent ventricles with normal sulci, no acute intracranial abnormality. Head MRA was done suggesting defect, possible thrombus in the M1 segment on the left. This could be further evaluated by CT of the brain. Liver ultrasound was sone and shows mild fatty infiltration of the liver, 2.9 mm nonobstructing stone mid-pole of the right kidney. Abdominal x-rays done showed only possibility of foreign body seen and is only seen on one of the views and is located in the left upper quadrant, possibly representing a tubing connector. CT abdomen and pelvis done shows CT tube inquired within the abdomen and terminating within the left upper quadrant with the tubing abutting in the peritoneum in the left upper quadrant 2.20 rounded 1.7 cm radiopaque foreign bodies within the colon, one within the cecum and one within the descending colon which appeared to be ingested foreign bodies. CT brain was done and shows no fracture or acute intracranial abnormalities identified. Right parietal region DATABASE MARKETING ANALYST shunt is present. There is a mild ventriculomegaly. Since no prior imaging studies available to compare the ventricle size is of uncertain chronicity. Suggest correlation with any prior imaging study to assess for changes. Please see the further details in the medical record. Luis Marcum MD EA/ARNIE /3:46 PM /8:31 PM
== END 2016-08-03 17:19 | disposition home or self-care (01) | DRG 392 ==
LOC: PHED 07:06 → PHEDA 10:35 → PHEDH 14:43 → N05B 20:05
PROVIDERS: ADMIT Family Medicine; ATTEND Family Medicine
DX: R10.9 Unspecified abdominal pain (principal); I67.1 Cerebral aneurysm, nonruptured; G93.89 Other specified disorders of brain; T18.4XXA Foreign body in colon, initial encounter; R13.10 Dysphagia, unspecified; S09.90XA Unspecified injury of head, initial encounter; I10 Essential (primary) hypertension; E78.5 Hyperlipidemia, unspecified; Z86.73 Personal history of transient ischemic attack (TIA), and cerebral infarction without residual deficits; Z98.2 Presence of cerebrospinal fluid drainage device; N40.0 Benign prostatic hyperplasia without lower urinary tract symptoms; E86.0 Dehydration; K59.00 Constipation, unspecified; S00.03XA Contusion of scalp, initial encounter; F17.210 Nicotine dependence, cigarettes, uncomplicated; Z80.0 Family history of malignant neoplasm of digestive organs; W18.30XA Fall on same level, unspecified, initial encounter; Y92.009 Unspecified place in unspecified non-institutional (private) residence as the place of occurrence of the external cause
CPT/HCPCS: 70250; 70450; 70544; 70553; 71010; 72040; 74000; 74177; 76705; 80053; 80074; 80307; 81001; 82103; 82390; 82550; 82552; 82784; 83516; 83520; 83605; 83690; 84484; 85025; 85610; 85730; 86038; 86256; 87328; 87329; 87493; 87506; 93005; 96361; 96374; 96375; 96376; A9579; C9113; J2270; J2405; J2765; J7030; Q9967

== ENCOUNTER 2017-09-14 11:46 | Inpatient (IN) | payer MEDICARE, OTHER ==
[2017-09-14] VITALS (9 sets, daily range): BP systolic 92–111; BP diastolic 51–64; PULSE 45–94; RESP 19–30; TEMP 94.3–96.9; O2SAT 90–98
[~2017-09-14] VITALS: Ht 182.9 cm; Wt 123.4 kg
[~2017-09-14 11:46] MED LIST changes: +APIX5TAB PO; +ATOR10TA15 PO; -BUSP10 PO; -CLOP75TA PO; -LISI-360 PO; +LISI10TA3 PO; -METO25 PO; +METO50TA PO; -PROT40TA PO; -REME15TA PO; +TAMS5CAP PO; -TOPA15CA PO; +TOPI25 PO
[2017-09-14] MEDS ORDERED: DIPHTH/TETANUS/ACEL PERTUSSIS (BOOSTER) 0.5 ML VIAL/PFS IM ONE (11:52)
[2017-09-14] MEDS ORDERED: ONDANSETRON HCL 4 MG/2 ML VIAL ONE (11:52)
[2017-09-14] MEDS ORDERED: MORPHINE SULFATE 4 MG/ML INJ ONE (12:00)
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
[2017-09-14 12:21] LABS: AUTOMATED NEUTROPHIL # 4.1 TH/MM3 (1.8-7.7); BASOPHIL # 0.1 TH/MM3 (0-0.2); BASOPHIL % 1.8 % (0.0-2.0); EOSINOPHIL # 0.7 TH/MM3 (0-0.4); EOSINOPHIL % 9.3 % (0.0-4.0); HEMATOCRIT 43.2 % (39.0-51.0); HEMOGLOBIN 15.2 GM/DL (13.0-17.0); LYMPH % 29.4 % (9.0-44.0); LYMPHOCYTE # 2.3 TH/MM3 (1.0-4.8); MEAN CELL VOLUME 90.3 FL (80.0-100.0); MEAN CORPUSCULAR HEMOGLOBIN 31.7 PG (27.0-34.0); MEAN CORPUSCULAR HGB CONC 35.1 % (32.0-36.0); MEAN PLATELET VOLUME 8.3 FL (7.0-11.0); MONO % 6.8 % (0.0-8.0); MONOCYTE # 0.5 TH/MM3 (0-0.9); NEUT % 52.7 % (16.0-70.0); PLATELET COUNT 234 TH/MM3 (150-450); RED BLOOD COUNT 4.79 MIL/MM3 (4.50-5.90); RED CELL DISTRIBUTION WIDTH 14.3 % (11.6-17.2); WHITE BLOOD COUNT 7.8 TH/MM3 (4.0-11.0)
[2017-09-14 12:27] LABS: INTERNATIONAL NORMALIZED RATIO 3.1 RATIO; PROTHROMBIN TIME - PATIENT 30.8 SEC (9.8-11.6)
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
[2017-09-14] MEDS: SODIUM CHLOR 0.9% 1000 ML INJ 1,000 ML IV SCH ×2 (12:57→18:23)
[2017-09-14] MEDS ORDERED: MISCELLANEOUS NURSING INFORMATION XX SCH (13:00)
[2017-09-14] MEDS ORDERED: CHLORHEXIDINE GLUCONATE 2 % 1 PACK (2 CLOTHS) TOP PRN (13:00)
[2017-09-14] MEDS ORDERED: MAGNESIUM HYDROXIDE SUSP 30 ML CUP PO PRN (13:00)
[2017-09-14] MEDS ORDERED: LACTULOSE SYRUP 20 GM/30 ML CUP PO PRN (13:00)
[2017-09-14] MEDS ORDERED: ONDANSETRON HCL 4 MG/2 ML VIAL IV PUSH PRN (13:00)
[2017-09-14] MEDS ORDERED: SENNOSIDES 8.6 MG TAB PO PRN (13:00)
[2017-09-14] MEDS: ACETAMINOPHEN 1000 MG/100 ML 100 ML IV SCH ×2 (13:15→20:55)
[2017-09-14] MEDS ORDERED: MORPHINE SULFATE 2 MG/ML INJ IM PRN (13:15)
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
[2017-09-14] MEDS ORDERED: PROTHROMBIN COMPLEX CONC INJ 2,500 UNITS in SYRINGE/BAG 1 EA IV ONE (13:45)
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
[2017-09-14] MEDS ORDERED: PHYTONADIONE INJ 10 MG in DEXTROSE 5% IN WATER INJ 50 ML IV ONE ×2 (14:00)
[2017-09-14] MEDS ORDERED: METOCLOPRAMIDE HCL 10 MG/2 ML VIAL IV PUSH PRN (14:00)
[2017-09-14] MEDS ORDERED: BISACODYL 10 MG SUPP RECTAL PRN (14:00)
[2017-09-14] MEDS ORDERED: HYDROmorphone HCL PF 1 MG/ML VIAL IV PUSH PRN (14:00)
[2017-09-14] MEDS ORDERED: IOHEXOL 350 MG/ML 10 ML VIAL (for RAD DIAG) IVCONTRAST ONE (14:07)
[2017-09-14] MEDS ORDERED: MAGNESIUM SULFATE INJ 2 GM in SODIUM CHLORIDE 0.9% INJ 96 ML IV PRN (14:30)
[2017-09-14] MEDS ORDERED: MAGNESIUM OXIDE 400 MG TAB PO PRN (14:30)
[2017-09-14] MEDS ORDERED: POTASSIUM CHLOR 40 MEQ PREMIX 100 ML IV PRN (14:30)
[2017-09-14] MEDS ORDERED: POTASSIUM PHOSPHATE MONOBASIC 500 MG TAB PO PRN (14:30)
[2017-09-14] MEDS ORDERED: POTASSIUM CHLOR 20 MEQ PREMIX 100 ML IV PRN (14:30)
[2017-09-14] MEDS ORDERED: MAGNESIUM SULFATE INJ 4 GM in SODIUM CHLORIDE 0.9% INJ 92 ML IV PRN (14:30)
[2017-09-14] MEDS ORDERED: SODIUM PHOSPHATE INJ 30 MMOL in SODIUM CHLOR 0.9% 250 ML INJ 240 ML IV PRN (14:30)
[2017-09-14] MEDS ORDERED: POTASSIUM CHLORIDE 25 MEQ EFFERVESCENT TAB PO PRN (14:30)
[2017-09-14] MEDS ORDERED: POTASSIUM PHOSPHATE MONOBASIC 500 MG TAB PO/TUBE PRN (14:30)
[2017-09-14] MEDS ORDERED: POTASSIUM PHOSPHATE INJ 30 MMOL in SODIUM CHLOR 0.9% 250 ML INJ 250 ML IV PRN (14:30)
[2017-09-14 14:35] LABS: ALBUMIN 3.2 GM/DL (3.4-5.0); AST (GOT) 49 U/L (15-37); BICARBONATE 25.9 MEQ/L (21.0-32.0); BLOOD UREA NITROGEN 10 MG/DL (7-18); CALCIUM 7.6 MG/DL (8.5-10.1); CHLORIDE 105 MEQ/L (98-107); CREATININE 1.35 MG/DL (0.60-1.30); GLOMERULAR FILTRATION RATE 46 ML/MIN (>89); GLUCOSE,RANDOM 162 MG/DL (74-106); SODIUM (NA) 138 MEQ/L (136-145)
[2017-09-14 14:43] LABS: ALKALINE PHOSPHATASE 68 U/L (45-117); ALT (GPT) 48 U/L (12-78); TOTAL BILIRUBIN ADULT 0.4 MG/DL (0.2-1.0)
[2017-09-14] MEDS ORDERED: ETOMIDATE 40 MG/20 ML VIAL ONE (14:45)
[2017-09-14] MEDS ORDERED: MIDAZOLAM HCL 5 MG/ML VIAL (1 ML) ONE (14:45)
--- NOTE | 2017-09-14 15:03 | PD.PROCEDR ---
Procedure Note Procedure Indication: hypoxemic and hypercarbic respiratory failure INTUBATION: The patient was put in optimal position for the procedure. Rapid sequence intubation was initiated by me using 20 milligrams of etomidate IV and 5 milligrams of Versed IV. 50 mg of IV rocuronium used for neuromuscular paralysis. Direct laryngoscopy MAC 4 blade grade 2 view single attempt. The patient was intubated with a 8.0 cuffed endotracheal tube. Tube placement was confirmed by visualization of the tube and balloon passing through the cords, capnometry and subsequent chest x-ray. Breath sounds were equal and well aerated bilaterally postintubation. No breath sounds over stomach. Patient tolerated procedure well. Tom Sarmiento MD Sep 14, 2017 15:03
[2017-09-14] MEDS: fentaNYL DRIP 250 ML IV PRN (15:13)
[2017-09-14] MEDS: PROPOFOL 1000 MG/100 ML INJ 100 ML IV PRN ×2 (15:14→20:55)
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
[2017-09-14] MEDS: AMPICILLIN-SULBACTAM INJ 3 GM in SODIUM CHLORIDE 0.9% INJ 100 ML IV SCH ×2 (15:53→20:54)
[2017-09-14] MEDS ORDERED: MIDAZOLAM HCL 5 MG/ML VIAL (1 ML) IV PUSH ONE (16:00)
[2017-09-14] MEDS: DEXTROSE 5% IV PRN ×4 (16:00→20:32)
[2017-09-14] MEDS ORDERED: ETOMIDATE 40 MG/20 ML VIAL IV PUSH ONE (16:00)
[2017-09-14] MEDS: DOPAMINE IV PRN ×4 (16:00→20:32)
[2017-09-14] MEDS: WATER IV PRN ×4 (16:00→20:32)
[2017-09-14] MEDS ORDERED: ROCURONIUM INJ 50 MG/5 ML VIAL IV PUSH ONE ×2 (16:00→17:00)
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
[2017-09-14] MEDS: SODIUM CHLORIDE 23.4% INJ 188 MEQ in SODIUM CHLOR 0.9% 1000 ML INJ 1,000 ML IV SCH (16:13)
[2017-09-14] MEDS ORDERED: TERBUTALINE INJ 1 MG/ML AMP SQ PRN (16:30)
--- NOTE | 2017-09-14 16:57 | PD.PROCEDR ---
Central Line Procedure REASON FOR PROCEDURE Central venous access PROCEDURE PERFORMED Central line placement: R subclavian central line CONSENT Emergency procedure, unable to get consent ANESTHESIA Local injection of 1% Lidocaine DESCRIPTION OF THE PROCEDURE The patient was placed in supine, mild Trendelenburg position. The area was exposed and cleansed with ChloraPrep, times two. Large sterile drape was used to cover the patient, with the site exposed, under sterile conditions including cap, face mask, sterile gown, and sterile gloves. On single attempt, the introducer needle was inserted with negative pressure in syringe and venous flash was obtained. The guide wire was then advanced without any restriction and the needle was removed. The dilator was used without any complications. Using Seldinger technique the 20 catheter was advanced over the guide wire to a depth of 18 centimeters. The guide wire was removed. All ports were aspirated with dark venous blood return and flushed easily with sterile saline. All ports were capped. Antibiotic disc was placed around central line at puncture site. The central line was secured to the skin with two interrupted 2.0 silk sutures. The area was bandaged with sterile see-through central line bandage. A Stat loc could not be used due to diaphoretic skin, and oozing COMPLICATIONS: No apparent complications ESTIMATED BLOOD LOSS: Less than 1 cc. Tom Sarmiento MD Sep 14, 2017 16:57
[2017-09-14] MEDS: GABAPENTIN 100 MG CAP PO SCH (17:11)
[2017-09-14] MEDS: RESP: ALBUTEROL 2.5 MG/IPRATROPIUM 0.5 MG NEB (SCH) INH ×2 (17:17→20:10)
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
[2017-09-14] MEDS ORDERED: NOREPINEPHRINE 4 MG/D5W 250 ML IV PRN (18:00)
[2017-09-14] MEDS ORDERED: CARD4TAB2 PO (19:09)
[2017-09-14] MEDS ORDERED: AMIO200T PO (19:09)
[2017-09-14] MEDS ORDERED: METO-424 PO (19:09)
[2017-09-14] MEDS ORDERED: WARF4TAB51 PO (19:09)
[2017-09-14] MEDS ORDERED: AMLO10 PO (19:09)
[2017-09-14] MEDS ORDERED: PRIN10TA PO (19:09)
[2017-09-14] MEDS ORDERED: LIPI10TA PO (19:09)
[2017-09-14] MEDS ORDERED: BUSP10TA PO (19:09)
[2017-09-14] MEDS ORDERED: FURO1TAB62 PO (19:09)
[2017-09-14] MEDS ORDERED: PLAV75TA29 PO (19:09)
[2017-09-14] MEDS ORDERED: POTA10TA2 PO (19:09)
[2017-09-14] MEDS ORDERED: PROT40TA PO (19:09)
[2017-09-14] MEDS ORDERED: WELLTAB39 PO (19:09)
[2017-09-14] MEDS ORDERED: VENL1CAP38 PO (19:09)
[2017-09-14] MEDS ORDERED: ZYPR5TAB PO (19:10)
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
[2017-09-14] MEDS: CHLORHEXIDINE 0.12% (ORAL KIT) 15 ML CUP MT SCH (20:48)
[2017-09-14] MEDS: DOCUSATE SODIUM 50 MG/SENNA 8.6 MG TAB PO SCH (20:49)
[2017-09-14] MEDS: FAMOTIDINE 20 MG/2 ML VIAL IV PUSH SCH (20:55)
[2017-09-14] MEDS ORDERED: NOREPINEPHRINE INJ 4 MG in SODIUM CHLOR 0.9% 250 ML INJ 250 ML IV PRN (21:15)
[2017-09-14] MEDS: NOREPINEPHRINE INJ 4 MG in SODIUM CHLOR 0.9% 250 ML INJ 246 ML IV PRN (21:22)
[2017-09-14] MEDS: DOPamine INJ 400 MG in SODIUM CHLOR 0.9% 250 ML INJ 240 ML IV PRN (21:22)
[2017-09-14 21:35] LABS: AUTOMATED NEUTROPHIL # 11.4 TH/MM3 (1.8-7.7); BASOPHIL # 0.1 TH/MM3 (0-0.2); BASOPHIL % 0.6 % (0.0-2.0); EOSINOPHIL % 0.3 % (0.0-4.0); HEMATOCRIT 42.4 % (39.0-51.0); HEMOGLOBIN 14.1 GM/DL (13.0-17.0); LYMPH % 8.5 % (9.0-44.0); LYMPHOCYTE # 1.2 TH/MM3 (1.0-4.8); MEAN CORPUSCULAR HEMOGLOBIN 29.9 PG (27.0-34.0); MEAN CORPUSCULAR HGB CONC 33.2 % (32.0-36.0); MEAN PLATELET VOLUME 8.5 FL (7.0-11.0); MONO % 8.1 % (0.0-8.0); MONOCYTE # 1.1 TH/MM3 (0-0.9); NEUT % 82.5 % (16.0-70.0); PLATELET COUNT 216 TH/MM3 (150-450); RED BLOOD COUNT 4.71 MIL/MM3 (4.50-5.90); RED CELL DISTRIBUTION WIDTH 13.8 % (11.6-17.2); WHITE BLOOD COUNT 13.9 TH/MM3 (4.0-11.0)
--- NOTE | 2017-09-14 22:22 | RADRPT ---
EXAM DATE/TIME: 09/14/2017 21:48 [facility] COMPARISON: CHEST SINGLE AP, September 14, 2017, 16:55. INDICATIONS : Evaluate for pneumothorax. MEDICAL HISTORY : Unobtainable. SURGICAL HISTORY : Unobtainable. ENCOUNTER: Subsequent ACUITY: 1 day PAIN SCORE: Non-responsive. LOCATION: Bilateral chest FINDINGS: Bibasilar consolidation and small effusions present, not significantly changed on the right and sligh tly worse on the left. No perceptible pneumothorax. Endotracheal tube tip is approximately 14 mm above the stepan, similar to before. There is a right meza bclavian central venous catheter with tip in the right atrium. CONCLUSION: Bibasilar consolidation and effusions, not significantly changed on the right and moderately worse on the left. No pneumothorax seen. Endotracheal tube tip close to the stepan but unchanged. Torsten Saba MD on September 14, 2017 at 22:19 Board Certified Radiologist. This report was verified electronically.
[2017-09-14] MEDS: MIDAZOLAM 100 MG/100 ML INJ 100 ML IV PRN (22:29)
[2017-09-14 22:31] LABS: INTERNATIONAL NORMALIZED RATIO 1.2 RATIO; PROTHROMBIN TIME - PATIENT 12.4 SEC (9.8-11.6)
[2017-09-15] VITALS (19 sets, daily range): BP systolic 88–110; BP diastolic 49–57; PULSE 81–102; RESP 19–24; TEMP 97.5–99.5; O2SAT 90–95
--- NOTE | 2017-09-15 00:14 | RADRPT ---
EXAM DATE/TIME: 09/14/2017 23:48 [facility] COMPARISON: CT BRAIN W/O CONTRAST, September 14, 2017, 12:04. INDICATIONS : Trauma. RADIATION DOSE: 63.64 CTDIvol (mGy) MEDICAL HISTORY : Non-responsive. SURGICAL HISTORY : Non-responsive. ENCOUNTER: Initial ACUITY: 1 day PAIN SCALE: Non-responsive LOCATION: cranial TECHNIQUE: Multiple contiguous axial images were obtained of the head. Using automated exposure control and adj ustment of the mA and/or kV according to patient size, radiation dose was kept as low as reasonably a chievable to obtain optimal diagnostic quality images. DICOM format image data is available electro nically for review and comparison. FINDINGS: There is high attenuation anterior to the cervical cord at the level of the clivus. This is a new fin ding from the prior study. This is consistent with hemorrhage. Small volume hemorrhage is seen involv ing the inferior portion of the right frontal lobe. This is superficial cortical in nature. This is s table. A tiny focus of hemorrhage within the parenchyma within the centrum semiovale the right is no longer present. The ventricles remain prominent but stable despite the ventriculostomy. No acute infa rction observed. Soft tissue swelling is seen involving the right periorbital soft tissues. Facial fr actures previously described. Air-fluid levels within all paranasal sinuses with the exception of the sphenoid sinuses. CONCLUSION: 1. The only interval change has been the development of subarachnoid blood adjacent to the clivus. 2. Other sites of hemorrhage are stable. 3. Stable ventriculomegaly. Oumar Sheldon Jr., MD on September 15, 2017 at 0:04 Board Certified Radiologist. This report was verified electronically.
--- NOTE | 2017-09-15 00:21 | RADRPT ---
EXAM DATE/TIME: 09/14/2017 23:51 [facility] COMPARISON: CT THORAX W CONTRAST, September 14, 2017, 12:04. INDICATIONS : Respiratory distress. RADIATION DOSE: 21.11 CTDIvol (mGy) MEDICAL HISTORY : Non-responsive. SURGICAL HISTORY : Non-responsive. ENCOUNTER: Initial ACUITY: 1 day PAIN SCALE: Non-responsive LOCATION: chest TECHNIQUE: Volumetric scanning of the chest was performed. Using automated exposure control and adjustment of t he mA and/or kV according to patient size, radiation dose was kept as low as reasonably achievable to obtain optimal diagnostic quality images. DICOM format image data is available electronically for r eview and comparison. Follow-up recommendations for detected pulmonary nodules are based at a minimum on nodule size and pa tient risk factors according to Fleischner Society Guidelines. FINDINGS: LUNGS: Significant change in the amount of consolidation within the lungs compared to the prior study. There is complete consolidation of the entire right lower lobe and right middle lobe. Less pronounced cons olidation seen involving the basilar segments on the left although progressed from the prior study. A groundglass opacity seen within the anterior left upper lobe. PLEURAE: There is no pleural thickening or pleural effusion. MEDIASTINUM: The heart is normal in size. Coronary artery atherosclerotic calcification is noted. No pericardial e ffusion. No mediastinal fluid. Endotracheal tube tip at the level of the stepan. Right-sided central line. AXILLAE: Within normal limits. No lymphadenopathy. MUSCULOSKELETAL: Multiple right-sided rib fractures previously described. MISCELLANEOUS: The visualized upper abdominal organs demonstrate no acute abnormality. CONCLUSION: 1. Worsening consolidation bilaterally particularly involving the right lower lobe. This could relate to pulmonary contusion or aspiration. 2. No pneumothorax. 3. Right-sided rib fractures. 4. Tip of the endotracheal tube at the level of the stepan. Oumar Sheldon Jr., MD on September 15, 2017 at 0:16 Board Certified Radiologist. This report was verified electronically.
[2017-09-15] MEDS: ACETAMINOPHEN 1000 MG/100 ML 100 ML IV SCH ×2 (01:31→08:55)
[2017-09-15] MEDS: AMPICILLIN-SULBACTAM INJ 3 GM in SODIUM CHLORIDE 0.9% INJ 100 ML IV SCH ×4 (02:00→20:26)
[2017-09-15] MEDS ORDERED: SODIUM CHLOR 0.9% 1000 ML INJ 500 ML IV ONE (02:30)
[2017-09-15] MEDS: DOPamine INJ 400 MG in SODIUM CHLOR 0.9% 250 ML INJ 240 ML IV PRN ×7 (02:39→20:51)
[2017-09-15] MEDS: NOREPINEPHRINE INJ 4 MG in SODIUM CHLOR 0.9% 250 ML INJ 246 ML IV PRN ×6 (02:40→21:07)
[2017-09-15] MEDS: PANTOPRAZOLE INJ 80 MG in SODIUM CHLORIDE 0.9% INJ 100 ML IV SCH ×2 (03:23→12:21)
[2017-09-15] MEDS ORDERED: PANTOPRAZOLE INJ 80 MG in SODIUM CHLORIDE 0.9% INJ 35 ML IV ONE (03:23)
[2017-09-15] MEDS: RESP: ALBUTEROL 2.5 MG/IPRATROPIUM 0.5 MG NEB (SCH) INH ×4 (03:25→20:51)
[2017-09-15] MEDS: CHLORHEXIDINE GLUCONATE 2 % 1 PACK (2 CLOTHS) TOP SCH (04:00)
--- NOTE | 2017-09-15 06:01 | RADRPT ---
EXAM DATE/TIME: 09/15/2017 05:08 [facility] COMPARISON: CT THORAX W/O CONTRAST, September 14, 2017, 23:51. CHEST SINGLE AP, September 14, 2017, 21:48. INDICATIONS : Shortness of breath. MEDICAL HISTORY : Unobtainable. SURGICAL HISTORY : Unobtainable. ENCOUNTER: Subsequent ACUITY: 2 days PAIN SCORE: Non-responsive. LOCATION: Bilateral chest FINDINGS: 2 portable frontal views of the chest show cardiomegaly. Low lung volumes. Diffuse pulmonary infiltra brittany most pronounced within the bases. These are stable. No discrete effusions. Tip of the endotrachea l tube 2 cm proximal to stepan. Nasogastric tube and right subclavian line noted. CONCLUSION: Diffuse pulmonary infiltrates are stable. Oumar Sheldon Jr., MD on September 15, 2017 at 5:58 Board Certified Radiologist. This report was verified electronically.
[2017-09-15 06:07] LABS: AUTOMATED NEUTROPHIL # 11.3 TH/MM3 (1.8-7.7); BASOPHIL # 0.1 TH/MM3 (0-0.2); BASOPHIL % 0.4 % (0.0-2.0); EOSINOPHIL % 0.2 % (0.0-4.0); HEMATOCRIT 41.7 % (39.0-51.0); HEMOGLOBIN 14.2 GM/DL (13.0-17.0); LYMPH % 8.8 % (9.0-44.0); LYMPHOCYTE # 1.3 TH/MM3 (1.0-4.8); MEAN CELL VOLUME 90.1 FL (80.0-100.0); MEAN CORPUSCULAR HEMOGLOBIN 30.7 PG (27.0-34.0); MEAN PLATELET VOLUME 8.7 FL (7.0-11.0); MONO % 11.7 % (0.0-8.0); MONOCYTE # 1.7 TH/MM3 (0-0.9); NEUT % 78.9 % (16.0-70.0); PLATELET COUNT 230 TH/MM3 (150-450); RED BLOOD COUNT 4.62 MIL/MM3 (4.50-5.90); RED CELL DISTRIBUTION WIDTH 14.2 % (11.6-17.2); WHITE BLOOD COUNT 14.3 TH/MM3 (4.0-11.0)
[2017-09-15 06:12] LABS: INTERNATIONAL NORMALIZED RATIO 1.3 RATIO; PROTHROMBIN TIME - PATIENT 13.2 SEC (9.8-11.6)
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
[2017-09-15 07:03] LABS: BICARBONATE 21.6 MEQ/L (21.0-32.0); CREATININE 2.07 MG/DL (0.60-1.30)
[2017-09-15] MEDS ORDERED: SODIUM CHLOR 0.9% 1000 ML INJ 1,000 ML IV ONE (08:30)
[2017-09-15] MEDS: CHLORHEXIDINE 0.12% (ORAL KIT) 15 ML CUP MT SCH ×2 (08:55→20:27)
[2017-09-15] MEDS: FAMOTIDINE 20 MG/2 ML VIAL IV PUSH SCH ×2 (08:56→20:26)
[2017-09-15] MEDS: GABAPENTIN 100 MG CAP PO SCH ×3 (08:56→16:47)
[2017-09-15] MEDS: DOCUSATE SODIUM 50 MG/SENNA 8.6 MG TAB PO SCH ×2 (08:56→20:27)
[2017-09-15] MEDS: fentaNYL DRIP 250 ML IV PRN ×2 (08:56→21:22)
[2017-09-15] MEDS: MIDAZOLAM 100 MG/100 ML INJ 100 ML IV PRN ×2 (08:56→21:22)
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
[2017-09-15] MEDS: SODIUM CHLOR 0.9% 1000 ML INJ 1,000 ML IV SCH (12:21)
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
[2017-09-15] MEDS: SODIUM CHLORIDE 23.4% INJ 188 MEQ in SODIUM CHLOR 0.9% 1000 ML INJ 1,000 ML IV SCH (16:00)
--- NOTE | 2017-09-15 18:39 | ECHRPT ---
Indication: trauma CONCLUSIONS Normal left ventricular size. Wall thickness is normal. The left ventricular systolic function is low normal with an estimated ejection fraction of 50%. There was limited left ventricular wall motion assessment due to poor endocardial visualization. No aortic valve regurgitation. BP: / HR: Rhythm: MEASUREMENTS (Male / Female) Normal Values Technical Quality:Technically difficult study 2D ECHO LV Diastolic Diameter PLAX 4.2 cm 4.2 - 5.9 / 3.9 - 5.3 cm LV Systolic Diameter PLAX 3.4 cm IVS Diastolic Thickness 1.0 cm 0.6 - 1.0 / 0.6 - 0.9 cm LVPW Diastolic Thickness 1.0 cm 0.6 - 1.0 / 0.6 - 0.9 cm LV Relative Wall Thickness 0.5 RV Internal Dim ED PLAX 2.0 cm DOPPLER Mitral E Point Velocity 59.2 cm/s Mitral A Point Velocity 73.5 cm/s Mitral E to A Ratio 0.8 TR Peak Velocity 171.0 cm/s TR Peak Gradient 11.7 mmHg FINDINGS LEFT VENTRICLE Normal left ventricular size. Wall thickness is normal. The left ventricular systolic function is low normal with an estimated ejection fraction of 50%. There was limited left ventricular wall motion assessment due to poor endocardial visualization. RIGHT VENTRICLE Normal right ventricular size and systolic function. LEFT ATRIUM The left atrial size is normal. RIGHT ATRIUM The right atrial size is normal. ATRIAL SEPTUM Normal atrial septal thickness without atrial level shunting by limited color doppler interrogation. AORTA The aortic root and proximal ascending aorta are normal in size on limited imaging. MITRAL VALVE Structurally normal mitral valve. No mitral valve stenosis or regurgitation. AORTIC VALVE The aortic valve is not well visualized. No aortic valve regurgitation. TRICUSPID VALVE Structurally normal tricuspid valve. No tricuspid valve stenosis or regurgitation. PULMONARY VALVE The pulmonary valve is not well visualized. VESSELS The inferior vena cava is normal in size. PERICARDIUM No pericardial effusion. Duncan Dias MD, FACC (Electronically Signed) Final Date:15 September 2017 18:38
[2017-09-16] VITALS (17 sets, daily range): BP systolic 110–124; BP diastolic 45–59; PULSE 79–97; RESP 16–32; TEMP 97.5–99.9; O2SAT 94–98
[2017-09-16] MEDS: DOPamine INJ 400 MG in SODIUM CHLOR 0.9% 250 ML INJ 240 ML IV PRN ×7 (00:21→22:48)
--- NOTE | 2017-09-16 01:52 | RADRPT ---
EXAM DATE/TIME: 09/16/2017 01:08 [facility] COMPARISON: CT THORAX W/O CONTRAST, September 14, 2017, 23:51. CHEST SINGLE AP, September 15, 2017, 5:08. INDICATIONS : Shortness of breath. MEDICAL HISTORY : None. SURGICAL HISTORY : None. ENCOUNTER: Subsequent ACUITY: 2 days PAIN SCORE: Non-responsive. LOCATION: Bilateral chest FINDINGS: 2 portable frontal views of the chest shows subcutaneous air overlying the right chest. Small right s ubpulmonic pneumothorax.. Bilateral pulmonary infiltrates. These are stable. No effusions. Heart norm al size. The endotracheal tube obscured by an electronic device. It is within the trachea. Nasogastri c tube tip in the region of the body the stomach. Right-sided central line. Right-sided rib fractures . CONCLUSION: 1. Small subpulmonic pneumothorax on the right. 2. Bilateral pulmonary infiltrates are unchanged. 3. Right sided rib fractures. Oumar Sheldon Jr., MD on September 16, 2017 at 1:48 Board Certified Radiologist. This report was verified electronically.
[2017-09-16] MEDS: NOREPINEPHRINE INJ 4 MG in SODIUM CHLOR 0.9% 250 ML INJ 246 ML IV PRN ×2 (03:18→15:35)
[2017-09-16] MEDS: PANTOPRAZOLE INJ 80 MG in SODIUM CHLORIDE 0.9% INJ 100 ML IV SCH ×2 (03:28→08:01)
[2017-09-16] MEDS: AMPICILLIN-SULBACTAM INJ 3 GM in SODIUM CHLORIDE 0.9% INJ 100 ML IV SCH ×4 (03:31→20:43)
[2017-09-16] MEDS: SODIUM CHLOR 0.9% 1000 ML INJ 1,000 ML IV SCH ×3 (03:38→15:40)
[2017-09-16] MEDS: SODIUM CHLORIDE 23.4% INJ 188 MEQ in SODIUM CHLOR 0.9% 1000 ML INJ 1,000 ML IV SCH ×2 (03:39→16:00)
[2017-09-16] MEDS: RESP: ALBUTEROL 2.5 MG/IPRATROPIUM 0.5 MG NEB (SCH) INH ×4 (03:42→21:08)
[2017-09-16] MEDS: CHLORHEXIDINE GLUCONATE 2 % 1 PACK (2 CLOTHS) TOP SCH (04:00)
[2017-09-16 06:19] LABS: AUTOMATED NEUTROPHIL # 8.6 TH/MM3 (1.8-7.7); BASOPHIL # 0.1 TH/MM3 (0-0.2); EOSINOPHIL # 0.1 TH/MM3 (0-0.4); EOSINOPHIL % 0.7 % (0.0-4.0); HEMATOCRIT 38.1 % (39.0-51.0); HEMOGLOBIN 12.6 GM/DL (13.0-17.0); LYMPH % 12.3 % (9.0-44.0); LYMPHOCYTE # 1.4 TH/MM3 (1.0-4.8); MEAN CELL VOLUME 91.3 FL (80.0-100.0); MEAN CORPUSCULAR HEMOGLOBIN 30.3 PG (27.0-34.0); MEAN CORPUSCULAR HGB CONC 33.1 % (32.0-36.0); MEAN PLATELET VOLUME 8.3 FL (7.0-11.0); MONO % 10.8 % (0.0-8.0); MONOCYTE # 1.2 TH/MM3 (0-0.9); NEUT % 75.2 % (16.0-70.0); PLATELET COUNT 188 TH/MM3 (150-450); RED BLOOD COUNT 4.17 MIL/MM3 (4.50-5.90); RED CELL DISTRIBUTION WIDTH 14.3 % (11.6-17.2); WHITE BLOOD COUNT 11.5 TH/MM3 (4.0-11.0)
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
[2017-09-16 07:14] LABS: ALBUMIN 2.4 GM/DL (3.4-5.0); ALKALINE PHOSPHATASE 74 U/L (45-117); ALT (GPT) 100 U/L (12-78); AST (GOT) 93 U/L (15-37); BICARBONATE 19.6 MEQ/L (21.0-32.0); BLOOD UREA NITROGEN 20 MG/DL (7-18); CALCIUM 7.9 MG/DL (8.5-10.1); CHLORIDE 120 MEQ/L (98-107); GLOMERULAR FILTRATION RATE 38 ML/MIN (>89); GLUCOSE,RANDOM 126 MG/DL (74-106); MAGNESIUM 1.8 MG/DL (1.5-2.5); SODIUM (NA) 149 MEQ/L (136-145); TOTAL BILIRUBIN ADULT 0.7 MG/DL (0.2-1.0); TOTAL PROTEIN 5.5 GM/DL (6.4-8.2)
[2017-09-16] MEDS: GABAPENTIN 100 MG CAP PO SCH ×3 (07:31→18:00)
[2017-09-16] MEDS: fentaNYL DRIP 250 ML IV PRN ×2 (07:31→15:33)
[2017-09-16] MEDS: CHLORHEXIDINE 0.12% (ORAL KIT) 15 ML CUP MT SCH ×2 (07:31→20:00)
[2017-09-16] MEDS: FAMOTIDINE 20 MG/2 ML VIAL IV PUSH SCH ×2 (07:31→20:43)
[2017-09-16] MEDS: MIDAZOLAM 100 MG/100 ML INJ 100 ML IV PRN ×2 (07:31→15:34)
[2017-09-16] MEDS: DOCUSATE SODIUM 50 MG/SENNA 8.6 MG TAB PO SCH ×2 (07:32→20:42)
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
[2017-09-16] MEDS ORDERED: SODIUM CHLOR 0.9% 1000 ML INJ 1,000 ML IV ONE (10:00)
[2017-09-16] MEDS ORDERED: LIDOCAINE HCL 1% 30 ML VIAL INFIL ONE ×2 (10:45)
[2017-09-16] MEDS ORDERED: LIDOCAINE HCL 1% 50 ML VIAL INFIL ONE (11:00)
[2017-09-16] MEDS: METOPROLOL TARTRATE 25 MG TAB PO SCH ×2 (11:15→20:42)
[2017-09-16] MEDS: AMIODARONE 200 MG TAB PO SCH (11:15)
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
--- NOTE | 2017-09-16 17:10 | RADRPT ---
EXAM DATE/TIME: 09/16/2017 16:00 [facility] COMPARISON: CHEST SINGLE AP, September 16, 2017, 1:08. INDICATIONS : Evaluate chest tube placement. MEDICAL HISTORY : None. SURGICAL HISTORY : None. ENCOUNTER: Subsequent ACUITY: 2 days PAIN SCORE: Non-responsive. LOCATION: Bilateral chest FINDINGS: A single view of the chest demonstrates endotracheal tube in good position. NG enters stomach. Right central line in superior vena cava. Basilar airspace disease present. Right chest tube placed without significant pneumothorax. Decreasing air in right chest wall.. CONCLUSION: 1. Right chest tube without significant pneumothorax. Improving air in the right chest wall. Thanh Akins MD on September 16, 2017 at 17:06 Board Certified Radiologist. This report was verified electronically.
--- NOTE | 2017-09-16 19:35 | MP ---
cc: Ilir Ma MD DATE OF OPERATION: 09/16/2017 DATE OF SURGERY: 09/16/2017 PREOPERATIVE DIAGNOSES: Right-sided occult pneumothorax, subcutaneous emphysema, respiratory failure, multiple trauma. POSTOPERATIVE DIAGNOSES: Right-sided occult pneumothorax, subcutaneous emphysema, respiratory failure, multiple trauma. PROCEDURE PERFORMED: Right tube thoracostomy. SURGEON: Ilir Ma MD ANESTHESIA: 1% Xylocaine. ESTIMATED BLOOD LOSS: Minimal. DESCRIPTION OF PROCEDURE: The patient was prepped and draped in usual fashion. The area infiltrated with 1% Xylocaine and small incision made in the midaxillary line in about sixth intercostal space, deepened down with a hemostat over the ribs. Chest entered. A 20-Kazakh chest tube placed, sutured in place with 0 silk and connected to the Pleur-Evac. It should be noted that at the time of placement of the chest tube, there was a release of air from the chest which is exactly the subpulmonic collection seen on the x-ray. MD DARRICK Joseph/ESSIE , 07:09 PM , 07:35 PM
[2017-09-16] MEDS ORDERED: DEXTROSE 5% IV PRN ×4 (20:30)
[2017-09-16] MEDS ORDERED: WATER IV PRN ×4 (20:30)
[2017-09-16] MEDS ORDERED: DOPAMINE IV PRN ×4 (20:30)
[2017-09-16] MEDS: ATORVASTATIN 10 MG TAB PO SCH (20:43)
[2017-09-17] VITALS (20 sets, daily range): BP systolic 115–133; BP diastolic 47–55; PULSE 64–88; RESP 14–31; TEMP 98.2–100.2; O2SAT 92–99
[2017-09-17] MEDS: fentaNYL DRIP 250 ML IV PRN ×3 (01:41→21:56)
[2017-09-17] MEDS: AMPICILLIN-SULBACTAM INJ 3 GM in SODIUM CHLORIDE 0.9% INJ 100 ML IV SCH ×4 (01:41→21:56)
[2017-09-17] MEDS: MIDAZOLAM 100 MG/100 ML INJ 100 ML IV PRN ×3 (01:41→21:56)
[2017-09-17] MEDS: RESP: ALBUTEROL 2.5 MG/IPRATROPIUM 0.5 MG NEB (SCH) INH ×4 (03:30→20:58)
[2017-09-17] MEDS: CHLORHEXIDINE GLUCONATE 2 % 1 PACK (2 CLOTHS) TOP SCH (04:00)
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
[2017-09-17 04:09] LABS: AUTOMATED NEUTROPHIL # 7.2 TH/MM3 (1.8-7.7); BASOPHIL # 0.1 TH/MM3 (0-0.2); BASOPHIL % 0.9 % (0.0-2.0); EOSINOPHIL # 0.1 TH/MM3 (0-0.4); EOSINOPHIL % 1.6 % (0.0-4.0); HEMATOCRIT 35.4 % (39.0-51.0); HEMOGLOBIN 11.9 GM/DL (13.0-17.0); LYMPH % 9.9 % (9.0-44.0); LYMPHOCYTE # 0.9 TH/MM3 (1.0-4.8); MEAN CELL VOLUME 90.4 FL (80.0-100.0); MEAN CORPUSCULAR HEMOGLOBIN 30.4 PG (27.0-34.0); MEAN CORPUSCULAR HGB CONC 33.6 % (32.0-36.0); MEAN PLATELET VOLUME 8.1 FL (7.0-11.0); MONO % 9.2 % (0.0-8.0); MONOCYTE # 0.8 TH/MM3 (0-0.9); NEUT % 78.4 % (16.0-70.0); PLATELET COUNT 165 TH/MM3 (150-450); RED BLOOD COUNT 3.91 MIL/MM3 (4.50-5.90); RED CELL DISTRIBUTION WIDTH 15.1 % (11.6-17.2); WHITE BLOOD COUNT 9.1 TH/MM3 (4.0-11.0)
[2017-09-17 04:28] LABS: ALBUMIN 2.1 GM/DL (3.4-5.0); AST (GOT) 60 U/L (15-37); BLOOD UREA NITROGEN 13 MG/DL (7-18); CALCIUM 7.8 MG/DL (8.5-10.1); CHLORIDE 123 MEQ/L (98-107); CREATININE 1.15 MG/DL (0.60-1.30); GLOMERULAR FILTRATION RATE 63 ML/MIN (>89); GLUCOSE,RANDOM 102 MG/DL (74-106); MAGNESIUM 1.6 MG/DL (1.5-2.5); SODIUM (NA) 153 MEQ/L (136-145)
[2017-09-17 04:49] LABS: ALKALINE PHOSPHATASE 72 U/L (45-117); ALT (GPT) 89 U/L (12-78); TOTAL BILIRUBIN ADULT 0.5 MG/DL (0.2-1.0); TOTAL PROTEIN 5.4 GM/DL (6.4-8.2)
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
[2017-09-17] MEDS: NOREPINEPHRINE INJ 4 MG in SODIUM CHLOR 0.9% 250 ML INJ 246 ML IV PRN ×2 (08:13→17:56)
[2017-09-17] MEDS: DOPamine INJ 400 MG in SODIUM CHLOR 0.9% 250 ML INJ 240 ML IV PRN ×2 (08:14→17:57)
[2017-09-17] MEDS: GABAPENTIN 100 MG CAP PO SCH ×3 (08:23→17:55)
[2017-09-17] MEDS: METOPROLOL TARTRATE 25 MG TAB PO SCH (08:23)
[2017-09-17] MEDS: AMIODARONE 200 MG TAB PO SCH (08:23)
[2017-09-17] MEDS: DOCUSATE SODIUM 50 MG/SENNA 8.6 MG TAB PO SCH ×2 (08:23→21:00)
[2017-09-17] MEDS: CHLORHEXIDINE 0.12% (ORAL KIT) 15 ML CUP MT SCH ×2 (08:24→20:00)
[2017-09-17] MEDS: FAMOTIDINE 20 MG/2 ML VIAL IV PUSH SCH ×2 (08:24→21:56)
[2017-09-17] MEDS: SODIUM CHLORIDE 23.4% INJ 188 MEQ in SODIUM CHLOR 0.9% 1000 ML INJ 1,000 ML IV SCH (08:49)
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
[2017-09-17] MEDS ORDERED: ALBUMIN 5% INJ 500 ML IV ONE (11:15)
[2017-09-17] MEDS: SODIUM CHLOR 0.9% 1000 ML INJ 1,000 ML IV SCH (12:27)
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
[2017-09-17] MEDS: ATORVASTATIN 10 MG TAB PO SCH (21:57)
[2017-09-17] MEDS: MORPHINE SULFATE 2 MG/ML INJ IV PUSH PRN (23:32)
[2017-09-18] VITALS (17 sets, daily range): BP systolic 104–130; BP diastolic 46–58; PULSE 70–87; RESP 12–30; TEMP 99–100.8; O2SAT 91–100
[2017-09-18] MEDS: SODIUM CHLOR 0.9% 1000 ML INJ 1,000 ML IV SCH ×2 (00:22→12:34)
[2017-09-18] MEDS: MIDAZOLAM HCL 2 MG/2 ML VIAL IV PUSH PRN ×2 (01:05→03:02)
[2017-09-18] MEDS: MORPHINE SULFATE 2 MG/ML INJ IV PUSH PRN ×2 (01:05→05:28)
[2017-09-18] MEDS: AMPICILLIN-SULBACTAM INJ 3 GM in SODIUM CHLORIDE 0.9% INJ 100 ML IV SCH ×2 (03:03→08:10)
[2017-09-18] MEDS: RESP: ALBUTEROL 2.5 MG/IPRATROPIUM 0.5 MG NEB (SCH) INH ×2 (03:14→09:51)
[2017-09-18] MEDS: NOREPINEPHRINE INJ 4 MG in SODIUM CHLOR 0.9% 250 ML INJ 246 ML IV PRN ×3 (03:17→21:03)
[2017-09-18] MEDS: CHLORHEXIDINE GLUCONATE 2 % 1 PACK (2 CLOTHS) TOP SCH (04:00)
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
[2017-09-18 05:45] LABS: AUTOMATED NEUTROPHIL # 6.3 TH/MM3 (1.8-7.7); BASOPHIL # 0.1 TH/MM3 (0-0.2); BASOPHIL % 0.7 % (0.0-2.0); EOSINOPHIL # 0.3 TH/MM3 (0-0.4); EOSINOPHIL % 3.8 % (0.0-4.0); HEMATOCRIT 30.7 % (39.0-51.0); HEMOGLOBIN 10.5 GM/DL (13.0-17.0); LYMPHOCYTE # 0.6 TH/MM3 (1.0-4.8); MEAN CELL VOLUME 90.5 FL (80.0-100.0); MEAN CORPUSCULAR HEMOGLOBIN 30.9 PG (27.0-34.0); MEAN CORPUSCULAR HGB CONC 34.1 % (32.0-36.0); MEAN PLATELET VOLUME 8.3 FL (7.0-11.0); MONO % 11.9 % (0.0-8.0); NEUT % 76.6 % (16.0-70.0); PLATELET COUNT 171 TH/MM3 (150-450); RED BLOOD COUNT 3.39 MIL/MM3 (4.50-5.90); RED CELL DISTRIBUTION WIDTH 14.8 % (11.6-17.2); WHITE BLOOD COUNT 8.2 TH/MM3 (4.0-11.0)
[2017-09-18 06:04] LABS: ALT (GPT) 53 U/L (12-78); AST (GOT) 24 U/L (15-37); BICARBONATE 21.5 MEQ/L (21.0-32.0); BLOOD UREA NITROGEN 13 MG/DL (7-18); CALCIUM 7.9 MG/DL (8.5-10.1); CHLORIDE 124 MEQ/L (98-107); CREATININE 1.01 MG/DL (0.60-1.30); GLOMERULAR FILTRATION RATE 73 ML/MIN (>89); GLUCOSE,RANDOM 84 MG/DL (74-106); MAGNESIUM 1.8 MG/DL (1.5-2.5); SODIUM (NA) 154 MEQ/L (136-145)
[2017-09-18 06:06] LABS: ALKALINE PHOSPHATASE 66 U/L (45-117); TOTAL BILIRUBIN ADULT 0.8 MG/DL (0.2-1.0); TOTAL PROTEIN 5.3 GM/DL (6.4-8.2)
[2017-09-18] MEDS: fentaNYL DRIP 250 ML IV PRN ×2 (08:09→17:31)
[2017-09-18] MEDS: FAMOTIDINE 20 MG/2 ML VIAL IV PUSH SCH ×2 (08:09→20:08)
[2017-09-18] MEDS: GABAPENTIN 100 MG CAP PO SCH ×3 (08:09→17:09)
[2017-09-18] MEDS: DOCUSATE SODIUM 50 MG/SENNA 8.6 MG TAB PO SCH ×2 (08:09→20:17)
[2017-09-18] MEDS: CHLORHEXIDINE 0.12% (ORAL KIT) 15 ML CUP MT SCH ×2 (08:11→20:18)
[2017-09-18] MEDS: DOPamine INJ 400 MG in SODIUM CHLOR 0.9% 250 ML INJ 240 ML IV PRN (09:24)
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
--- NOTE | 2017-09-18 12:08 | PD.CARD.PN ---
Subjective Subjective Remarks Intubated. Sedated. Objective Medications Item Value Date Time Enoxaparin Sodium 40 mg 09/18/17 1200 (Lovenox Inj) Q24H/SQ Furosemide 40 mg 09/18/17 1115 (Lasix Inj) DAILY/IV PUSH Atorvastatin 10 mg 09/16/17 2100 Calcium HS/PO 09/17/17 2157 (Lipitor) Current Medications Medications (Trade) Dose Ordered Sig/Lars Route Start Time Stop Time Status Last Admin Sodium Chloride 1,000 ml @ 84 mls/hr [id number] IV 09/14/17 12:57 09/16/17 15:40 (Pepcid Inj) 20 mg Q12HR IV PUSH 09/14/17 21:00 09/18/17 08:09 (Zofran Inj) 4 mg Q6H PRN IV PUSH 09/14/17 13:00 (Reglan Inj) 10 mg Q6H PRN IV PUSH 09/14/17 14:00 (Duoneb Neb) 1 ampule Q6HR NEB INH 09/14/17 16:00 09/18/17 09:51 Miscellaneous Information 1 [id number] XX 09/14/17 13:00 09/14/17 13:00 (Chlorhexidine 2% Cloth) 3 pack Taper DAILY@04 TOP 09/15/17 04:00 09/11/18 03:59 09/18/17 04:00 (Chlorhexidine 2% Cloth) 3 pack UNSCH PRN TOP 09/14/17 13:00 (Jadyn-Colace) 1 tab BID PO 09/14/17 21:00 09/18/17 08:09 (Milk Of Magnesia Liq) 30 ml Q12H PRN PO 09/14/17 13:00 (Senokot) 17.2 mg Q12H PRN PO 09/14/17 13:00 (Dulcolax Supp) 10 mg DAILY PRN RECTAL 09/14/17 14:00 (Lactulose Liq) 30 ml DAILY PRN PO 09/14/17 13:00 (Morphine Inj) 2 mg Q4H PRN IV PUSH 09/14/17 14:00 09/18/17 05:28 (Neurontin) 200 mg TID PO 09/14/17 18:00 09/18/17 08:09 Potassium Chloride 100 ml @ 25 mls/hr Q2H PRN IV 09/14/17 14:30 Potassium Chloride 100 ml @ 50 mls/hr Q2H PRN IV 09/14/17 14:30 (K-Lyte Cl Eff) 50 meq UNSCH PRN PO 09/14/17 14:30 Potassium Chloride 100 ml @ 25 mls/hr UNSCH PRN IV 09/14/17 14:30 Potassium Chloride 100 ml @ 50 mls/hr Q2H PRN IV 09/14/17 14:30 Magnesium Sulfate 4 gm/Sodium Chloride 100 ml @ 50 mls/hr UNSCH PRN IV 09/14/17 14:30 (Mag-Ox) 800 mg UNSCH PRN PO 09/14/17 14:30 Magnesium Sulfate 2 gm/Sodium Chloride 100 ml @ 50 mls/hr UNSCH PRN IV 09/14/17 14:30 (K-Phos) 2,000 mg Q4H PRN PO 09/14/17 14:30 Sodium Phosphate 30 mmol/Sodium Chloride 250 ml @ 42 mls/hr UNSCH PRN IV 09/14/17 14:30 (K-Phos) 2,000 mg UNSCH PRN PO/TUBE 09/14/17 14:30 Potassium Phosphate 30 mmol/ Sodium Chloride 260 ml @ 42 mls/hr UNSCH PRN IV 09/14/17 14:30 Sodium Chloride 188 meq/Sodium Chloride 1,047 ml @ 20 mls/hr Q24H IV 09/14/17 16:00 09/17/17 08:49 (Peridex 0.12% Liq) 15 ml BID@08,20 MT 09/14/17 20:00 09/18/17 08:11 Propofol 100 ml @ 3.399 mls/ hr TITRATE PRN IV 09/14/17 15:00 09/14/17 20:55 Fentanyl Citrate 250 ml @ 5 mls/hr TITRATE PRN IV 09/14/17 15:00 09/18/17 08:09 (Brethine Inj) 1 mg UNSCH PRN SQ 09/14/17 16:30 Norepinephrine Bitartrate 4 mg/ Sodium Chloride 250 ml @ 7.5 mls/hr TITRATE PRN IV 09/14/17 21:15 09/18/17 03:17 Midazolam HCl 100 ml @ 2 mls/hr TITRATE PRN IV 09/14/17 22:15 09/17/17 21:56 (Versed Inj) 2 mg Q15M PRN IV PUSH 09/14/17 22:15 09/18/17 03:02 (Lipitor) 10 mg HS PO 09/16/17 21:00 09/17/17 21:57 Dopamine HCl 400 mg/Dextrose 250 ml @ 12.74 mls/ hr TITRATE PRN IV 09/16/17 20:30 Future Hold (Dilaudid Pf Inj) 1 mg Q4H PRN IV PUSH 09/18/17 05:30 (Lovenox Inj) 40 mg Q24H SQ 09/18/17 12:00 (Lasix Inj) 40 mg DAILY IV PUSH 09/18/17 11:15 09/21/17 11:14 Vital Signs / I&O Vital Signs Date Time Temp Pulse Resp B/P (MAP) Pulse Ox O2 Delivery O2 Flow Rate FiO2 09/18/17 09:52 93 100 09/18/17 07:00 94 Mechanical Ventilator 100 09/18/17 06:00 78 09/18/17 06:00 87 130/51 09/18/17 05:33 23 09/18/17 04:00 90 09/18/17 04:00 100.0 87 30 123/47 (72) 91 09/18/17 04:00 87 09/18/17 03:17 78 123/58 09/18/17 03:15 92 100 09/18/17 02:00 78 09/18/17 00:00 99.0 87 27 130/57 (81) 95 09/18/17 00:00 90 09/18/17 00:00 87 09/17/17 23:42 94 100 09/17/17 22:00 77 09/17/17 20:58 92 60 09/17/17 20:00 60 09/17/17 20:00 99.5 86 31 133/50 (77) 98 09/17/17 20:00 79 09/17/17 19:00 97 Mechanical Ventilator 60 09/17/17 18:10 94 40 09/17/17 18:00 68 09/17/17 17:56 65 139/61 09/17/17 16:00 40 09/17/17 16:00 64 09/17/17 16:00 98.2 64 14 119/54 (75) 98 3/16/18 14:00 69 09/17/17 12:19 98 40 I/O 09/17/17 09/17/17 09/17/17 09/18/17 09/18/17 09/18/17 06:59 14:59 22:59 06:59 14:59 22:59 Intake Total 5667 ml 1100 ml 3195 ml Output Total 1374 ml 756 ml Balance 4293 ml 1100 ml 2439 ml Intake IV Total 5667 ml 1100 ml 2905 ml Tube Feeding 190 ml Other 100 ml Output Urine Total 1200 ml 750 ml Gastric Drainage Total 150 ml Chest Tube Drainage Total 24 ml 6 ml # Bowel Movements 0 0 Physical Exam GENERAL: Well developed, well nourished. Intubated. Sedated. HEENT: Jugular venous pressure hard to assess. CHEST: Lungs clear to auscultation anteriorly. CARDIAC: Regular rate and rhythm without S3, S4, or murmur. ABDOMEN: Soft, no hepatosplenomegaly. Bowel sounds present. Laboratory Laboratory Tests Test 09/18/17 04:44 09/18/17 05:00 Blood Gas Puncture Site ART LINE Blood Gas Patient Temperature 98.6 Blood Gas HCO3 19 mmol/L Blood Gas Base Excess -5.4 mmol/L Blood Gas Oxygen Saturation 92 % Arterial Blood pH 7.34 Arterial Blood Partial Pressure CO2 36 mmHg Arterial Blood Partial Pressure O2 66 mmHg Arterial Blood Oxygen Content 20.5 Vol % Arterial Blood Carboxyhemoglobin 0.9 % Arterial Blood Methemoglobin 0.9 % Blood Gas Hemoglobin 15.9 G/DL Oxygen Delivery Device VENT Blood Gas Ventilator Setting SEE COMMENTS Blood Gas Inspired Oxygen 100 % White Blood Count 8.2 TH/MM3 Red Blood Count 3.39 MIL/MM3 Hemoglobin 10.5 GM/DL Hematocrit 30.7 % Mean Corpuscular Volume 90.5 FL Mean Corpuscular Hemoglobin 30.9 PG Mean Corpuscular Hemoglobin Concent 34.1 % Red Cell Distribution Width 14.8 % Platelet Count 171 TH/MM3 Mean Platelet Volume 8.3 FL Neutrophils (%) (Auto) 76.6 % Lymphocytes (%) (Auto) 7.0 % Monocytes (%) (Auto) 11.9 % Eosinophils (%) (Auto) 3.8 % Basophils (%) (Auto) 0.7 % Neutrophils # (Auto) 6.3 TH/MM3 Lymphocytes # (Auto) 0.6 TH/MM3 Monocytes # (Auto) 1.0 TH/MM3 Eosinophils # (Auto) 0.3 TH/MM3 Basophils # (Auto) 0.1 TH/MM3 CBC Comment DIFF FINAL Differential Comment Blood Urea Nitrogen 13 MG/DL Creatinine 1.01 MG/DL Random Glucose 84 MG/DL Total Protein 5.3 GM/DL Albumin 2.0 GM/DL Calcium Level 7.9 MG/DL Magnesium Level 1.8 MG/DL Alkaline Phosphatase 66 U/L Aspartate Amino Transf (AST/SGOT) 24 U/L Alanine Aminotransferase (ALT/SGPT) 53 U/L Total Bilirubin 0.8 MG/DL Sodium Level 154 MEQ/L Potassium Level 3.2 MEQ/L Chloride Level 124 MEQ/L Carbon Dioxide Level 21.5 MEQ/L Anion Gap 9 MEQ/L Estimat Glomerular Filtration Rate 73 ML/MIN Imaging Last 24 hours Impressions Chest X-Ray 09/18/17 0600 Signed Impressions: Service Date/Time: Monday, September 18, 2017 03:22 - CONCLUSION: 1. Hypoinflation with bibasilar airspace disease/effusions. Slight interval improvement on the right. 2. Stable position of life support tubes. 3. Stable cardiomegaly. 4. Multiple right-sided rib fractures. Man Garcia MD Assessment and Plan Problem List: (1) Paroxysmal atrial fibrillation ICD Codes: I48.0 - Paroxysmal atrial fibrillation Status: Chronic Plan: Stable overnight. Remains in NSR. CHADS VASc score probably only 1 for history of hypertension. Echo reportedly shows EF 50%. REC daily baby aspirin when OK from trauma standpoint if he has significant atrial fib recurrences, can consider starting propafenone or Amiodarone he can f/u with Dr. 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
[2017-09-18] MEDS: FUROSEMIDE 40 MG/4 ML VIAL IV PUSH SCH (12:33)
[2017-09-18] MEDS: ENOXAPARIN SODIUM 40 MG/0.4 ML SYRINGE SQ SCH (12:34)
[2017-09-18] MEDS: POTASSIUM CHLOR 20 MEQ PREMIX 100 ML IV PRN ×4 (12:42→21:02)
[2017-09-18] MEDS: MIDAZOLAM 100 MG/100 ML INJ 100 ML IV PRN (17:30)
[2017-09-18] MEDS: SODIUM CHLORIDE 23.4% INJ 188 MEQ in SODIUM CHLOR 0.9% 1000 ML INJ 1,000 ML IV SCH (17:31)
--- NOTE | 2017-09-18 17:55 | EKG ---
Date Performed: 09/17/2017 Time Performed: 15:24:09 PTAGE: 67 years EKG: SUPRAVENTRICULAR RHYTHM GENERALIZED LOW VOLTAGE NONSPECIFIC T-WAVE CHANGE ABNORMAL ECG NO PREVIOUS TRACING DOCTOR: Augie Lyon Interpretating Date/Time 09/18/2017 17:53:16
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
[2017-09-18] MEDS: ATORVASTATIN 10 MG TAB PO SCH (20:17)
[2017-09-18] MEDS ORDERED: MANNITOL INJ 400 ML ONE (21:20)
[2017-09-19] VITALS (16 sets, daily range): BP systolic 106–140; BP diastolic 54–69; PULSE 62–89; RESP 12–27; TEMP 98.4–100; O2SAT 96–100
[2017-09-19] MEDS: MIDAZOLAM 100 MG/100 ML INJ 100 ML IV PRN ×2 (00:42→12:53)
[2017-09-19] MEDS: LACTULOSE SYRUP 20 GM/30 ML CUP PO SCH ×2 (01:03→09:41)
[2017-09-19] MEDS: CHLORHEXIDINE GLUCONATE 2 % 1 PACK (2 CLOTHS) TOP SCH (04:00)
--- NOTE | 2017-09-19 04:29 | RADRPT ---
EXAM DATE/TIME: 09/19/2017 02:34 [facility] COMPARISON: CHEST SINGLE AP, September 18, 2017, 3:22. INDICATIONS : Pulmonary contusion, and rib fractures. MEDICAL HISTORY : None. SURGICAL HISTORY : None. ENCOUNTER: Subsequent ACUITY: 4 - 6 days PAIN SCORE: Non-responsive. LOCATION: Bilateral chest FINDINGS: A single view of the chest demonstrates improved inspiratory effort with improving aeration in the ba ses. One support tubes are all stable in position. Multiple right-sided rib fractures. CONCLUSION: Improved inspiratory effort with improving aeration in both lung bases. Man Garcia MD on September 19, 2017 at 4:24 Board Certified Radiologist. This report was verified electronically.
[2017-09-19] MEDS: NOREPINEPHRINE INJ 4 MG in SODIUM CHLOR 0.9% 250 ML INJ 246 ML IV PRN (05:22)
[2017-09-19 05:30] LABS: AUTOMATED NEUTROPHIL # 5.1 TH/MM3 (1.8-7.7); BASOPHIL # 0.1 TH/MM3 (0-0.2); BASOPHIL % 0.8 % (0.0-2.0); EOSINOPHIL # 0.6 TH/MM3 (0-0.4); EOSINOPHIL % 7.9 % (0.0-4.0); HEMATOCRIT 29.2 % (39.0-51.0); HEMOGLOBIN 9.9 GM/DL (13.0-17.0); LYMPHOCYTE # 0.9 TH/MM3 (1.0-4.8); MEAN CELL VOLUME 90.8 FL (80.0-100.0); MEAN CORPUSCULAR HEMOGLOBIN 30.8 PG (27.0-34.0); MEAN CORPUSCULAR HGB CONC 33.9 % (32.0-36.0); MEAN PLATELET VOLUME 8.2 FL (7.0-11.0); MONO % 13.6 % (0.0-8.0); MONOCYTE # 1.1 TH/MM3 (0-0.9); NEUT % 65.7 % (16.0-70.0); PLATELET COUNT 164 TH/MM3 (150-450); RED BLOOD COUNT 3.21 MIL/MM3 (4.50-5.90); RED CELL DISTRIBUTION WIDTH 15.3 % (11.6-17.2); WHITE BLOOD COUNT 7.8 TH/MM3 (4.0-11.0)
[2017-09-19 05:43] LABS: BICARBONATE 23.3 MEQ/L (21.0-32.0); CREATININE 1.2 MG/DL (0.60-1.30)
[2017-09-19] MEDS: fentaNYL DRIP 250 ML IV PRN (06:29)
[2017-09-19 06:34] LABS: BASOPHILS 3 % (0-2); LYMPHOCYTES 11 % (9-44); MONOCYTES 7 % (0-8); NEUTROPHIL # MANUAL DIFF 5.7 TH/MM3 (1.8-7.7); POLYS (SEG NEUTROPHILS) 73 % (16-70)
[2017-09-19] MEDS: CHLORHEXIDINE 0.12% (ORAL KIT) 15 ML CUP MT SCH ×2 (09:40→20:42)
[2017-09-19] MEDS: FUROSEMIDE 40 MG/4 ML VIAL IV PUSH SCH (09:40)
[2017-09-19] MEDS: GABAPENTIN 100 MG CAP PO SCH ×3 (09:40→18:42)
[2017-09-19] MEDS: DOCUSATE SODIUM 50 MG/SENNA 8.6 MG TAB PO SCH ×2 (09:41→20:41)
[2017-09-19] MEDS: FAMOTIDINE 20 MG/2 ML VIAL IV PUSH SCH ×2 (09:41→20:42)
[2017-09-19] MEDS: POTASSIUM CHLOR 40 MEQ PREMIX 100 ML IV PRN (10:01)
[2017-09-19] MEDS ORDERED: MAGNESIUM CITRATE SOLN 300 ML BTL PO ONE (11:00)
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
[2017-09-19] MEDS: ENOXAPARIN SODIUM 40 MG/0.4 ML SYRINGE SQ SCH (12:54)
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
[2017-09-19] MEDS: ATORVASTATIN 10 MG TAB PO SCH (20:41)
[2017-09-20] VITALS (20 sets, daily range): BP systolic 122–155; BP diastolic 64–72; PULSE 70–88; RESP 22–32; TEMP 97.9–100.8; O2SAT 94–100
[2017-09-20] MEDS: CHLORHEXIDINE GLUCONATE 2 % 1 PACK (2 CLOTHS) TOP SCH (04:00)
--- NOTE | 2017-09-20 04:51 | RADRPT ---
EXAM DATE/TIME: 09/20/2017 02:49 [facility] COMPARISON: CHEST SINGLE AP, September 19, 2017, 2:34. INDICATIONS : Short of breath. MEDICAL HISTORY : None. SURGICAL HISTORY : None. ENCOUNTER: Subsequent ACUITY: 3 days PAIN SCORE: 0/10 LOCATION: Bilateral chest FINDINGS: ET tube tip well above the stepan. Gastric tube traverses the [id number]. Right subclavian chuckie ter tip projects over the distal superior vena cava. Right chest tube tip in the medial upper right chest, stable. Stable displaced lower lateral right rib fracture. No pneumothorax seen. Mild conso lidation medial left lower lung. CONCLUSION: 1. Lines and tubes stable. No pneumothorax seen. 2. Stable left lower lobe infiltrate. Oumar Bain MD on September 20, 2017 at 4:48 Board Certified Radiologist. This report was verified electronically.
[2017-09-20 06:14] LABS: AUTOMATED NEUTROPHIL # 7.1 TH/MM3 (1.8-7.7); BASOPHIL # 0.1 TH/MM3 (0-0.2); BASOPHIL % 0.6 % (0.0-2.0); EOSINOPHIL # 0.1 TH/MM3 (0-0.4); EOSINOPHIL % 0.8 % (0.0-4.0); HEMATOCRIT 29.8 % (39.0-51.0); HEMOGLOBIN 10.1 GM/DL (13.0-17.0); LYMPH % 8.2 % (9.0-44.0); LYMPHOCYTE # 0.7 TH/MM3 (1.0-4.8); MEAN CELL VOLUME 90.1 FL (80.0-100.0); MEAN CORPUSCULAR HEMOGLOBIN 30.4 PG (27.0-34.0); MEAN CORPUSCULAR HGB CONC 33.8 % (32.0-36.0); MEAN PLATELET VOLUME 8.4 FL (7.0-11.0); MONO % 11.5 % (0.0-8.0); NEUT % 78.9 % (16.0-70.0); PLATELET COUNT 194 TH/MM3 (150-450); RED BLOOD COUNT 3.31 MIL/MM3 (4.50-5.90); RED CELL DISTRIBUTION WIDTH 15.3 % (11.6-17.2)
[2017-09-20 06:41] LABS: BICARBONATE 25.2 MEQ/L (21.0-32.0); CALCIUM 8.7 MG/DL (8.5-10.1); CREATININE 1.13 MG/DL (0.60-1.30)
[2017-09-20 07:53] LABS: BANDS 3 % (0-6); LYMPHOCYTES 11 % (9-44); METAMYELOCYTES 2 % (0-1); MONOCYTES 12 % (0-8); MYELOCYTES 3 % (0-0); NEUTROPHIL # MANUAL DIFF 6.9 TH/MM3 (1.8-7.7); POLYS (SEG NEUTROPHILS) 69 % (16-70)
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
[2017-09-20] MEDS: CHLORHEXIDINE 0.12% (ORAL KIT) 15 ML CUP MT SCH ×2 (09:45→20:34)
[2017-09-20] MEDS: GABAPENTIN 100 MG CAP PO SCH ×3 (09:46→18:17)
[2017-09-20] MEDS: DOCUSATE SODIUM 50 MG/SENNA 8.6 MG TAB PO SCH ×2 (09:46→20:34)
[2017-09-20] MEDS: FAMOTIDINE 20 MG/2 ML VIAL IV PUSH SCH ×2 (09:46→20:34)
[2017-09-20] MEDS: LACTULOSE SYRUP 20 GM/30 ML CUP PO SCH (09:46)
[2017-09-20] MEDS: ENOXAPARIN SODIUM 40 MG/0.4 ML SYRINGE SQ SCH (12:00)
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
[2017-09-20] MEDS: HYDROmorphone HCL PF 2 MG/ML VIAL IV PUSH PRN (18:17)
[2017-09-20] MEDS: ATORVASTATIN 10 MG TAB PO SCH (20:34)
[2017-09-20] MEDS: MIDAZOLAM HCL 2 MG/2 ML VIAL IV PUSH PRN (20:34)
[2017-09-20] MEDS ORDERED: ACETAMINOPHEN 500 MG CPLT PO PRN (23:30)
[2017-09-21] VITALS (18 sets, daily range): BP systolic 105–137; BP diastolic 50–83; PULSE 60–88; RESP 17–42; TEMP 96.8–101.6; O2SAT 94–99
[2017-09-21] MEDS: MIDAZOLAM HCL 2 MG/2 ML VIAL IV PUSH PRN ×2 (02:52→12:20)
[2017-09-21] MEDS: PROPOFOL 1000 MG/100 ML INJ 100 ML IV PRN ×4 (03:19→22:19)
[2017-09-21] MEDS: HYDROmorphone HCL PF 2 MG/ML VIAL IV PUSH PRN (03:20)
[2017-09-21] MEDS: CHLORHEXIDINE GLUCONATE 2 % 1 PACK (2 CLOTHS) TOP SCH (04:00)
[2017-09-21 04:38] LABS: AUTOMATED NEUTROPHIL # 8.2 TH/MM3 (1.8-7.7); BASOPHIL # 0.1 TH/MM3 (0-0.2); BASOPHIL % 0.5 % (0.0-2.0); EOSINOPHIL # 0.3 TH/MM3 (0-0.4); EOSINOPHIL % 2.8 % (0.0-4.0); HEMATOCRIT 31.7 % (39.0-51.0); HEMOGLOBIN 10.6 GM/DL (13.0-17.0); LYMPH % 10.6 % (9.0-44.0); LYMPHOCYTE # 1.2 TH/MM3 (1.0-4.8); MEAN CORPUSCULAR HEMOGLOBIN 30.3 PG (27.0-34.0); MEAN CORPUSCULAR HGB CONC 33.4 % (32.0-36.0); MONO % 12.8 % (0.0-8.0); MONOCYTE # 1.4 TH/MM3 (0-0.9); NEUT % 73.3 % (16.0-70.0); PLATELET COUNT 232 TH/MM3 (150-450); RED BLOOD COUNT 3.49 MIL/MM3 (4.50-5.90); RED CELL DISTRIBUTION WIDTH 15.4 % (11.6-17.2); WHITE BLOOD COUNT 11.2 TH/MM3 (4.0-11.0)
[2017-09-21 04:59] LABS: BICARBONATE 27.5 MEQ/L (21.0-32.0); CREATININE 1.38 MG/DL (0.60-1.30)
--- NOTE | 2017-09-21 06:43 | RADRPT ---
EXAM DATE/TIME: 09/21/2017 04:57 [facility] COMPARISON: CHEST SINGLE AP, September 20, 2017, 2:49. INDICATIONS : Follow up trauma. Short of breath. MEDICAL HISTORY : None. SURGICAL HISTORY : None. ENCOUNTER: Subsequent ACUITY: 1 week PAIN SCORE: Non-responsive. LOCATION: Bilateral chest FINDINGS: ET tube tip although the stepan. Gastric tube or cyst [id number]. Right subclavian catheter tip projects over the proximal superior vena cava. Right chest drainage tube unchanged in position in th e medial right chest. Persisting consolidation in the medial left lower lung stable elevation right hemidiaphragm. No evidence of pneumothorax. CONCLUSION: Persistent left lower lung consolidation. Oumar Bain MD on September 21, 2017 at 6:40 Board Certified Radiologist. This report was verified electronically.
[2017-09-21] MEDS: CHLORHEXIDINE 0.12% (ORAL KIT) 15 ML CUP MT SCH ×2 (08:00→20:04)
[2017-09-21] MEDS: FAMOTIDINE 20 MG/2 ML VIAL IV PUSH SCH ×2 (09:00→20:04)
[2017-09-21] MEDS: LACTULOSE SYRUP 20 GM/30 ML CUP PO SCH ×2 (09:00→09:18)
[2017-09-21] MEDS: DOCUSATE SODIUM 50 MG/SENNA 8.6 MG TAB PO SCH ×3 (09:00→20:03)
[2017-09-21] MEDS: GABAPENTIN 100 MG CAP PO SCH ×3 (09:04→17:44)
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
--- NOTE | 2017-09-21 11:31 | HHI.HCPN ---
Reason for visit a. To assist with evaluation and management of symptoms including: Pain, dyspnea b. To assist medical decision maker(s) with: better understanding of current medical conditions; weighing benefits/burdens of medical treatment options; making medical treatment decisions. Subjective/Interval History Patient seen today to follow-up on goals of care and symptom management. Patient remains intubated, sedated pending trach and PEG today. Attended trauma rounds to help clarify 's understanding to facilitate formation and goals. Dr. Ma attending trauma rounds advised the that he had an approximate 1 year minimum to try to wean off the ventilator. Due to the severe brain and right rib trauma, with several displaced rib fractures and subsequent hemopneumothorax, patient has required a high level of ventilator support. He has been on bilevel support for most of the last week to maintain oxygenation and has now been weaned to a CPAP trial. He was not sedated the prior 2 days and was withdrawing to pain only. Today he is on propofol, Versed and fentanyl in preparation for tracheostomy later today. Vital signs remained stable, blood pressure 119/50, heart rate 78, sinus rhythm with occasional PACs/PVCs, respiratory rate 17, oxygen saturation 94% on 30% FiO2, PEEP 22, PSV 10. Laboratory values show WBC 11.2, hemoglobin 10.6, hematocrit 31.7, platelets 232, sodium 156, potassium 3.6, BUN 29, creatinine 1.38, ABG shows pH 7.39, PCO2 45, PO2 90, saturation 95%, bicarb 26, base excess 1.6. Chest x-ray shows persistent left lower lung consolidation. This is an obese gentleman with multiple head trauma and bruises, intubated, sedated, restrained in bed. Generalized edema, sedated, withdraws to noxious stimuli. . Family/friend interactions Spoke with at bedside and initially stated that she wanted to make him a full code again but wished to involve her daughter, who is a trimming caser in the conversation. She wants to take him back to [place] where she has more family support. Her daughter was conferenced in 2 the conversation via telephone and a review of patient's clinical findings was given to both. Upon reviewing the patient's multiple displaced rib fractures the daughter indicated that a DO NOT RESUSCITATE status would be far more appropriate as CPR had an elevated risk of lung puncture or other injury given the rib fractures. The agreed with this and patient does remain a DO NOT RESUSCITATE at the family 's request. does wish to go forth with PEG and trach as it has been 8 days since his accident and she wishes to give him a longer time to recover. The daughter would like him evaluated by select specialties for possible LTAC admission for vent weaning, but both agree that the patient would not wish to live in a fdc and if he fails weaning at an LTAC would indeed convert to hospice comfort measures. Contact information was provided for any further questions or concerns. . Advance Directives Living Will: Never completed Health Care Surrogate: Never completed Durable Power of Junior Php Developer: Never completed Advance Directive Specifics Health Care Surrogate(s): Never completed. . Documented care wishes: Never completed. . Objective Vital Signs Date Time Temp Pulse Resp B/P (MAP) Pulse Ox O2 Delivery O2 Flow Rate FiO2 09/21/17 09:40 96 30 09/21/17 08:00 100.0 78 17 119/50 (73) 94 09/21/17 08:00 30 09/21/17 08:00 78 09/21/17 07:36 98 30 09/21/17 07:00 98 Mechanical Ventilator 30 09/21/17 06:00 88 09/21/17 04:00 30 09/21/17 04:00 100.6 77 22 120/83 (95) 98 09/21/17 04:00 88 09/21/17 02:57 97 30 09/21/17 02:00 101.6 09/21/17 02:00 88 09/21/17 00:00 30 09/21/17 00:00 88 09/21/17 00:00 100.1 83 26 137/61 (86) 97 09/20/17 23:53 98 30 09/20/17 22:00 88 09/20/17 20:00 80 09/20/17 20:00 99.7 80 32 140/69 (92) 96 09/20/17 20:00 30 09/20/17 19:26 97 30 09/20/17 19:00 96 Mechanical Ventilator 30 09/20/17 18:50 25 09/20/17 18:00 83 09/20/17 17:00 94 30 09/20/17 16:00 30 09/20/17 16:00 99.3 81 30 155/69 (97) 95 09/20/17 16:00 81 09/20/17 14:00 80 09/20/17 12:07 100 30 09/20/17 12:00 30 09/20/17 12:00 99.0 76 22 154/69 (97) 100 09/20/17 12:00 76 Intake & Output 09/21/17 09/21/17 07:00 19:00 Intake Total 560 ml Output Total 550 ml Balance 10 ml Intake IV Total 510 ml Tube Feeding 50 ml Output Urine Total 550 ml Physical Exam CONSTITUTIONAL/GENERAL: This is a morbidly obese male, intubated, sedated. TUBES/LINES/DRAINS: ETT, Brown, R CT, RSC CL, L rad, RFA PIV, RACF PIV SKIN: No jaundice, rashes, or lesions. Ecchymoses on upper extremities. No wounds seen anteriorly. Skin temperature appropriate. Not diaphoretic. HEAD: Right forehead contusion/lacerations. Bruising about face. Normocephalic. EYES: Pupils equal and round and reactive. No scleral icterus. NECK: Trachea midline. CARDIOVASCULAR: Regular rate and rhythm without murmurs, gallops, or rubs. No JVD. Peripheral pulses diminished. RESPIRATORY/CHEST: Symmetric, unlabored respirations. Clear to auscultation. Breath sounds equal bilaterally. No wheezes, rales, or rhonchi. GASTROINTESTINAL: Abdomen soft, obese, nondistended. Minimal BS X 4 GENITOURINARY: Without palpable bladder distension. Brown catheter in place. NEUROLOGICAL: Intubated, sedated PSYCHIATRIC: Sedated, Intubated. . Diagnostic Tests Laboratory Laboratory Tests Test 09/19/17 04:44 09/19/17 05:05 09/19/17 23:47 09/20/17 03:38 Blood Gas Puncture Site ART LINE ART LINE Blood Gas Patient Temperature 98.6 98.6 Blood Gas HCO3 21 mmol/L (22-26) 24 mmol/L (22-26) Blood Gas Base Excess -3.5 mmol/L (-2-2) -1.4 mmol/L (-2-2) Blood Gas Oxygen Saturation 98 % (90-100) 96 % (90-100) Arterial Blood pH 7.37 (7.380-7.420) 7.34 (7.380-7.420) Arterial Blood Partial Pressure CO2 37 mmHg (38-42) 45 mmHg (38-42) Arterial Blood Partial Pressure O2 227 mmHg (61-120) 102 mmHg (61-120) Arterial Blood Oxygen Content 15.2 Vol % (12.0-20.0) 13.8 Vol % (12.0-20.0) Arterial Blood Carboxyhemoglobin 0.8 % (0-4) 1.3 % (0-4) Arterial Blood Methemoglobin 1.1 % (0-2) 0.7 % (0-2) Blood Gas Hemoglobin 10.7 G/DL (12.0-16.0) 10.1 G/DL (12.0-16.0) Oxygen Delivery Device VENTILATOR VENTILATOR Blood Gas Ventilator Setting BILEVEL/APRV BIPHASIC Blood Gas Inspired Oxygen 65 % 30 % White Blood Count 7.8 TH/MM3 (4.0-11.0) Red Blood Count 3.21 MIL/MM3 (4.50-5.90) Hemoglobin 9.9 GM/DL (13.0-17.0) Hematocrit 29.2 % (39.0-51.0) Mean Corpuscular Volume 90.8 FL (80.0-100.0) Mean Corpuscular Hemoglobin 30.8 PG (27.0-34.0) Mean Corpuscular Hemoglobin Concent 33.9 % (32.0-36.0) Red Cell Distribution Width 15.3 % (11.6-17.2) Platelet Count 164 TH/MM3 (150-450) Mean Platelet Volume 8.2 FL (7.0-11.0) Neutrophils (%) (Auto) 65.7 % (16.0-70.0) Lymphocytes (%) (Auto) 12.0 % (9.0-44.0) Monocytes (%) (Auto) 13.6 % (0.0-8.0) Eosinophils (%) (Auto) 7.9 % (0.0-4.0) Basophils (%) (Auto) 0.8 % (0.0-2.0) Neutrophils # (Auto) 5.1 TH/MM3 (1.8-7.7) Lymphocytes # (Auto) 0.9 TH/MM3 (1.0-4.8) Monocytes # (Auto) 1.1 TH/MM3 (0-0.9) Eosinophils # (Auto) 0.6 TH/MM3 (0-0.4) Basophils # (Auto) 0.1 TH/MM3 (0-0.2) CBC Comment AUTO DIFF Differential Total Cells Counted 100 Neutrophils % (Manual) 73 % (16-70) Lymphocytes % 11 % (9-44) Monocytes % 7 % (0-8) Eosinophils % 6 % (0-4) Basophils % 3 % (0-2) Neutrophils # (Manual) 5.7 TH/MM3 (1.8-7.7) Differential Comment FINAL DIFF MANUAL Platelet Estimate NORMAL (NORMAL) Platelet Morphology Comment NORMAL (NORMAL) Red Cell Morphology Comment NORMAL (NORMAL) Blood Urea Nitrogen 15 MG/DL (7-18) Creatinine 1.20 MG/DL (0.60-1.30) Random Glucose 146 MG/DL (74-106) Calcium Level 8.0 MG/DL (8.5-10.1) Sodium Level 155 MEQ/L (136-145) Potassium Level 3.1 MEQ/L (3.5-5.1) 3.6 MEQ/L (3.5-5.1) Chloride Level 125 MEQ/L (98-107) Carbon Dioxide Level 23.3 MEQ/L (21.0-32.0) Anion Gap 7 MEQ/L (5-15) Estimat Glomerular Filtration Rate 60 ML/MIN (>89) Test 09/20/17 05:44 09/21/17 03:50 09/21/17 04:14 White Blood Count 9.0 TH/MM3 (4.0-11.0) 11.2 TH/MM3 (4.0-11.0) Red Blood Count 3.31 MIL/MM3 (4.50-5.90) 3.49 MIL/MM3 (4.50-5.90) Hemoglobin 10.1 GM/DL (13.0-17.0) 10.6 GM/DL (13.0-17.0) Hematocrit 29.8 % (39.0-51.0) 31.7 % (39.0-51.0) Mean Corpuscular Volume 90.1 FL (80.0-100.0) 91.0 FL (80.0-100.0) Mean Corpuscular Hemoglobin 30.4 PG (27.0-34.0) 30.3 PG (27.0-34.0) Mean Corpuscular Hemoglobin Concent 33.8 % (32.0-36.0) 33.4 % (32.0-36.0) Red Cell Distribution Width 15.3 % (11.6-17.2) 15.4 % (11.6-17.2) Platelet Count 194 TH/MM3 (150-450) 232 TH/MM3 (150-450) Mean Platelet Volume 8.4 FL (7.0-11.0) 9.0 FL (7.0-11.0) Neutrophils (%) (Auto) 78.9 % (16.0-70.0) 73.3 % (16.0-70.0) Lymphocytes (%) (Auto) 8.2 % (9.0-44.0) 10.6 % (9.0-44.0) Monocytes (%) (Auto) 11.5 % (0.0-8.0) 12.8 % (0.0-8.0) Eosinophils (%) (Auto) 0.8 % (0.0-4.0) 2.8 % (0.0-4.0) Basophils (%) (Auto) 0.6 % (0.0-2.0) 0.5 % (0.0-2.0) Neutrophils # (Auto) 7.1 TH/MM3 (1.8-7.7) 8.2 TH/MM3 (1.8-7.7) Lymphocytes # (Auto) 0.7 TH/MM3 (1.0-4.8) 1.2 TH/MM3 (1.0-4.8) Monocytes # (Auto) 1.0 TH/MM3 (0-0.9) 1.4 TH/MM3 (0-0.9) Eosinophils # (Auto) 0.1 TH/MM3 (0-0.4) 0.3 TH/MM3 (0-0.4) Basophils # (Auto) 0.1 TH/MM3 (0-0.2) 0.1 TH/MM3 (0-0.2) CBC Comment AUTO DIFF AUTO DIFF Differential Total Cells Counted 100 Neutrophils % (Manual) 69 % (16-70) Band Neutrophils % 3 % (0-6) Lymphocytes % 11 % (9-44) Monocytes % 12 % (0-8) Neutrophils # (Manual) 6.9 TH/MM3 (1.8-7.7) Metamyelocytes 2 % (0-1) Myelocytes 3 % (0-0) Differential Comment FINAL DIFF MANUAL AUTO DIFF CONFIRMED Platelet Estimate NORMAL (NORMAL) Platelet Morphology Comment NORMAL (NORMAL) Red Cell Morphology Comment NORMAL (NORMAL) Blood Urea Nitrogen 22 MG/DL (7-18) 29 MG/DL (7-18) Creatinine 1.13 MG/DL (0.60-1.30) 1.38 MG/DL (0.60-1.30) Random Glucose 117 MG/DL (74-106) 105 MG/DL (74-106) Calcium Level 8.7 MG/DL (8.5-10.1) 9.0 MG/DL (8.5-10.1) Sodium Level 157 MEQ/L (136-145) 156 MEQ/L (136-145) Potassium Level 3.8 MEQ/L (3.5-5.1) 3.6 MEQ/L (3.5-5.1) Chloride Level 123 MEQ/L (98-107) 121 MEQ/L (98-107) Carbon Dioxide Level 25.2 MEQ/L (21.0-32.0) 27.5 MEQ/L (21.0-32.0) Anion Gap 9 MEQ/L (5-15) 8 MEQ/L (5-15) Estimat Glomerular Filtration Rate 65 ML/MIN (>89) 51 ML/MIN (>89) Blood Gas Puncture Site ART LINE Blood Gas Patient Temperature 98.6 Blood Gas HCO3 26 mmol/L (22-26) Blood Gas Base Excess 1.6 mmol/L (-2-2) Blood Gas Oxygen Saturation 95 % (90-100) Arterial Blood pH 7.39 (7.380-7.420) Arterial Blood Partial Pressure CO2 45 mmHg (38-42) Arterial Blood Partial Pressure O2 90 mmHg (61-120) Arterial Blood Oxygen Content 14.0 Vol % (12.0-20.0) Arterial Blood Carboxyhemoglobin 1.3 % (0-4) Arterial Blood Methemoglobin 0.9 % (0-2) Blood Gas Hemoglobin 10.4 G/DL (12.0-16.0) Oxygen Delivery Device VENTILATOR Blood Gas Ventilator Setting APRV Blood Gas Inspired Oxygen 30 % . Result Diagram: 09/21/17 0350 09/21/17 0350 Microbiology Microbiology Date/Time Source Procedure Growth Status 09/14/17 15:41 Sputum Endotracheal Gram Stain - Final Complete 09/14/17 15:41 Sputum Endotracheal Sputum Culture - Final HEAVY GROWTH NORMAL RESPIRATORY ALEXANDER Complete . Imaging Last Impressions Chest X-Ray 09/21/17 0600 Signed Impressions: Service Date/Time: Thursday, September 21, 2017 04:57 - CONCLUSION: Persistent left lower lung consolidation. Oumar Bain MD Head CT 09/14/17 1800 Signed Impressions: Service Date/Time: Thursday, September 14, 2017 23:48 - CONCLUSION: 1. The only interval change has been the development of subarachnoid blood adjacent to the clivus. 2. Other sites of hemorrhage are stable. 3. Stable ventriculomegaly. Oumar Sheldon Jr., MD Thoracic Spine CT 09/14/17 1152 Signed Impressions: Service Date/Time: Thursday, September 14, 2017 12:04 - CONCLUSION: 1. No acute fracture or subluxation. 2. Mild degenerative changes of the mid thoracic spine without significant bony central canal or neural foraminal narrowing. Go Yanez MD Pelvis X-Ray 09/14/17 1152 Signed Impressions: Service Date/Time: Thursday, September 14, 2017 11:47 - CONCLUSION: 1. Questionable fractures of the sacrum and right inferior pubic ramus. CT scan recommended. Jason Freeman MD Maxillofacial CT 09/14/17 1152 Signed Impressions: Service Date/Time: Thursday, September 14, 2017 12:04 - CONCLUSION: 1. Comminuted fractures of the right frontal bone extending through the right frontal sinus and orbital roof exiting through the right zygoma at the junction of the right temporal bone. Small amount of pneumocephalus. 2. There are also fractures involving the right inferior orbital wall and posterior right lateral maxillary wall. 3. Subtle nondisplaced fracture the left anterior medial orbital wall with slightly depressed left orbital roof fracture. 4. Please see above for detailed description. Go Yanez MD Lumbar Spine CT 09/14/17 1152 Signed Impressions: Service Date/Time: Thursday, September 14, 2017 12:04 - CONCLUSION: 1. Degenerated disc at L5-S1 with broad-based disc protrusion. 2. No acute fracture of the lumbar spine identified. Jaime Mehta MD Chest CT 09/14/17 1152 Signed Impressions: Service Date/Time: Thursday, September 14, 2017 12:04 - CONCLUSION: 1. Right- sided rib fractures. 2. Bibasilar patchy densities likely atelectasis Jason Freeman MD Cervical Spine CT 09/14/17 1152 Signed Impressions: Service Date/Time: Thursday, September 14, 2017 12:04 - CONCLUSION: 1. No fracture or subluxation. Jason Freeman MD Abdomen/Pelvis CT 09/14/17 1152 Signed Impressions: Service Date/Time: Thursday, September 14, 2017 12:04 - CONCLUSION: 1. No abdominal visceral injury. 2. Bibasilar patchy densities in right lower lateral rib fractures. 3. Renal low densities and punctate nonobstructing bilateral renal calculi. 4. Status post cholecystectomy. 5. [employer] shunt catheter seen. Jason Freeman MD Wrist X-Ray 09/14/17 0000 Signed Impressions: Service Date/Time: Thursday, September 14, 2017 15:07 - CONCLUSION: 1. Comminuted fracture involving the base of the fourth metacarpal. Jaime Mehta MD Hand X-Ray 09/14/17 0000 Signed Impressions: Service Date/Time: Thursday, September 14, 2017 15:12 - CONCLUSION: 1. Comminuted fracture of the base of the fourth metacarpal. 2. Arthritic changes as above. 3. Widening of the scapholunate distance suggesting scapholunate ligament injury. Jaime Mehta MD . Procedures 09/14/2017: Right subclavian central line placement 09/14/2017: Orotracheal intubation 09/16/2017: Right chest tube placement Assessment and Plan Disease Oriented Problem List: (1) Paroxysmal atrial fibrillation (2) Intracranial hemorrhage (3) Lung contusion (4) Rib fractures Symptom Scale: (1) Dyspnea and respiratory abnormalities (2) Pain, generalized Pertinent Non-Medical Issues Psychosocial:He was born and brought up in [place]. He is and has 2 daughters who both live in [place]. He and his reside in [place]. 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 Legal: No legal issues noted. Ethical issues impacting care: No ethical issues noted. . Important Contacts : Bri Kevin Prognosis His prognosis is very poor. He has multiple baseline comorbidities, a severe head injury and has required extraordinarily high levels of ventilator support. He is currently been off sedation all day and is not withdrawing to pain. Even with tracheostomy and PEG tube placement, his ventilator course will be extremely extended and may be permanent. . Code Status: No Code Plan PLAN: Legal decision maker: Patient is not capacitated to make his own decisions as he is unresponsive and on a ventilator. By [place] statutes, his would be the healthcare proxy decision-maker. She is working with her 2 children and the patient's 2 children for joint decision-making. Goals: Aggressive short of resuscitation. CODE STATUS: DNR SYMPTOMS: * Dyspnea: Patient undergoing spontaneous breathing trials today. Required sedation overnight due to severe tachypnea with a respiratory rate of 40. Currently sedated on Versed, fentanyl and propofol pending trach placement. It is the opinion of Dr. Ma that the patient may come off the ventilator but will likely take at least a year for that to occur. Family wishes to allow more time for recovery and to evaluate neurological status before making further plans. * Debility:While they agree to try to place the patient in an LTAC, they do not wish him to go to a fdc if he failed to wean from the ventilator, and would likely choose withdrawal of support at that time. He has multiple fractures and it is the opinion of the trauma team that he will remain bedbound and will never be able to be cared for at home. If he demonstrates neurological injuries which would confine him to a fdc, family would choose comfort care per today's conversation. * Pain: This is multifactorial, considering invasive lines, bedbound status, severe trauma with multiple broken bones. He is currently receiving fentanyl at 250 mcg an hour for baseline pain management. Patient is nonresponsive but withdrawing to painful stimuli 4 extremities. Palliative care will continue to follow the patient during hospital course as condition evolves, to assist patient/decision-maker with understanding of their medical conditions, weighing benefits/burdens of treatment options, for clarification of goals of treatment. Additionally will assist with any symptoms of palliative concern. . Time Spent Time Periods: 10: 15-11: 30 Total Floor Time (mins): 75 Face to Face Time (mins): 45 >50% Counseling/Coord of Care: Yes Attestation To help prompt me to consider important information that might be impacting today's encounter and assessment, information from prior notes written by myself or my colleagues may have been "brought forward" into today's note. My signature on this note, however, is an attestation that I personally performed the exam, history, and/or decision-making noted today, and, unless otherwise indicated, the interactions with patient, family, and staff as well as the review of records all occurred today. I also attest that the listed assessment and stated plan reflect my best clinical judgment today based on the combination of historical information, prior notes, and today's exam/ interactions. When time spent is documented, it refers only to time spent today by the signer, or if indicated, combined time spent today by collaborating physician/nurse practitioner. . Diane De Guzman Sep 21, 2017 11:31 am
[2017-09-21] MEDS: ENOXAPARIN SODIUM 40 MG/0.4 ML SYRINGE SQ SCH (12:21)
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
[2017-09-21] MEDS: MIDAZOLAM 100 MG/100 ML INJ 100 ML IV PRN (18:54)
[2017-09-21] MEDS: ATORVASTATIN 10 MG TAB PO SCH (20:03)
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
[2017-09-22] VITALS (17 sets, daily range): BP systolic 99–117; BP diastolic 51–73; PULSE 6–74; RESP 20–48; TEMP 97–99.9; O2SAT 5–100
[2017-09-22] MEDS: PROPOFOL 1000 MG/100 ML INJ 100 ML IV PRN ×3 (02:28→17:36)
[2017-09-22] MEDS: CHLORHEXIDINE GLUCONATE 2 % 1 PACK (2 CLOTHS) TOP SCH (02:54)
[2017-09-22] MEDS: MIDAZOLAM HCL 2 MG/2 ML VIAL IV PUSH PRN (05:00)
[2017-09-22] MEDS: CHLORHEXIDINE 0.12% (ORAL KIT) 15 ML CUP MT SCH ×2 (08:00→20:32)
[2017-09-22] MEDS: GABAPENTIN 100 MG CAP PO SCH ×3 (08:18→17:36)
[2017-09-22] MEDS: DOCUSATE SODIUM 50 MG/SENNA 8.6 MG TAB PO SCH ×2 (08:18→20:31)
[2017-09-22] MEDS: FAMOTIDINE 20 MG/2 ML VIAL IV PUSH SCH ×2 (08:18→20:31)
[2017-09-22] MEDS: LACTULOSE SYRUP 20 GM/30 ML CUP PO SCH (08:18)
[2017-09-22] MEDS: MIDAZOLAM 100 MG/100 ML INJ 100 ML IV PRN ×2 (08:19→23:32)
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
[2017-09-22] MEDS: ARTIFICIAL TEARS OPTH OINT 3.5 APPLIC/3.5 GM TUBO EACH EYE SCH ×2 (11:56→20:31)
[2017-09-22] MEDS: BACITRACIN TOP OINT 15 GM TUBE TOPICAL SCH ×2 (11:56→20:32)
[2017-09-22] MEDS: ENOXAPARIN SODIUM 40 MG/0.4 ML SYRINGE SQ SCH (11:57)
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
--- NOTE | 2017-09-22 12:03 | PD.WCN.NOT ---
Wound Consult Description: Received consult for pressure ulcer evaluation. Also bilateral gluteal cleft pressure & R hand abrasion from Doctor Benjamin Communicated with: RN Melani Boudreaux and Doctor Benjamin Recommendation: For R hand abrasions 1. Please cleanse hand abrasions with normal saline or wound cleanser and pat dry. 2. Apply skin prep before covering abrasions with Veratel one 3. Cover with dry 4x4 gauze. 4. Secure with rolled gauze and tape. 5. Change dressing every 3 days or PRN if saturated or dislodged Buttocks 1. Cleanse buttock area with Remedy barrier wipes 2. Apply thick layer of calazime barrier cream BID and PRN and leave buttocks open to air 3. Please vocera wound care nurse for open wound or wound deterioration. Additional Information: Patient seen on [address] [place] [address] for evaluation of pressure ulcerto bilateral gluteal cleft and R hand abrasions. Patient was turned to L side with the assistance of Melani Boudreaux RN [address] [place] [address] and clinical writer to reveal intact blanchable erythema and denuded skin. Replaced soiled ultra sorb pad under patient with clean ultrasorb pad. Patient was then positioned to L side with pillow in place for support. Removed transparent dressing in place to R hand to reveal 3 small partial thickness abrasions.Wounds were non draining with moist wound beds. Periwound is noted with some maceration. Abrasions were cleansed with normal saline. Skin barrier film was applied to periwound before covering abrasions with Versatel one, Secured dressing with dry 4x4 gauze pads, rolled gauze and tape.Dressing to R hand can be left in place for 3 days or change PRN if saturated or dislodged. Recommendations are noted above. Jaimie Coates [facility] Sep 22, 2017 12:03
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
[2017-09-22] MEDS: fentaNYL DRIP 250 ML IV PRN (18:45)
[2017-09-22] MEDS: ATORVASTATIN 10 MG TAB PO SCH (20:31)
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
[2017-09-23] VITALS (19 sets, daily range): BP systolic 102–141; BP diastolic 52–67; PULSE 72–96; RESP 16–26; TEMP 99–100.6; O2SAT 95–99
[2017-09-23] MEDS: PROPOFOL 1000 MG/100 ML INJ 100 ML IV PRN (00:56)
[2017-09-23] MEDS: CHLORHEXIDINE GLUCONATE 2 % 1 PACK (2 CLOTHS) TOP SCH (04:00)
[2017-09-23] MEDS: BACITRACIN TOP OINT 15 GM TUBE TOPICAL SCH ×2 (07:58→20:38)
[2017-09-23] MEDS: CHLORHEXIDINE 0.12% (ORAL KIT) 15 ML CUP MT SCH ×2 (07:58→20:24)
[2017-09-23] MEDS: GABAPENTIN 100 MG CAP PO SCH ×3 (07:58→17:56)
[2017-09-23] MEDS: ARTIFICIAL TEARS OPTH OINT 3.5 APPLIC/3.5 GM TUBO EACH EYE SCH ×2 (07:58→20:24)
[2017-09-23] MEDS: DOCUSATE SODIUM 50 MG/SENNA 8.6 MG TAB PO SCH ×2 (07:59→20:24)
[2017-09-23] MEDS: FAMOTIDINE 20 MG/2 ML VIAL IV PUSH SCH ×2 (07:59→20:24)
[2017-09-23] MEDS: LACTULOSE SYRUP 20 GM/30 ML CUP PO SCH (07:59)
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
[2017-09-23] MEDS: ENOXAPARIN SODIUM 40 MG/0.4 ML SYRINGE SQ SCH (12:16)
[2017-09-23] MEDS: fentaNYL DRIP 250 ML IV PRN (18:50)
[2017-09-23] MEDS: ATORVASTATIN 10 MG TAB PO SCH (20:24)
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
[2017-09-24] VITALS (18 sets, daily range): BP systolic 125–149; BP diastolic 58–67; PULSE 71–97; RESP 22–34; TEMP 98.4–99.9; O2SAT 98–100
[2017-09-24] MEDS: CHLORHEXIDINE GLUCONATE 2 % 1 PACK (2 CLOTHS) TOP SCH (04:00)
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
[2017-09-24 05:38] LABS: BASOPHIL # 0.1 TH/MM3 (0-0.2); BASOPHIL % 1.1 % (0.0-2.0); EOSINOPHIL # 0.2 TH/MM3 (0-0.4); EOSINOPHIL % 1.4 % (0.0-4.0); HEMATOCRIT 31.1 % (39.0-51.0); HEMOGLOBIN 10.2 GM/DL (13.0-17.0); LYMPH % 8.6 % (9.0-44.0); LYMPHOCYTE # 1.2 TH/MM3 (1.0-4.8); MEAN CELL VOLUME 91.8 FL (80.0-100.0); MEAN CORPUSCULAR HEMOGLOBIN 30.1 PG (27.0-34.0); MEAN CORPUSCULAR HGB CONC 32.8 % (32.0-36.0); MEAN PLATELET VOLUME 9.1 FL (7.0-11.0); MONOCYTE # 1.1 TH/MM3 (0-0.9); NEUT % 80.9 % (16.0-70.0); PLATELET COUNT 372 TH/MM3 (150-450); RED BLOOD COUNT 3.39 MIL/MM3 (4.50-5.90); RED CELL DISTRIBUTION WIDTH 16.3 % (11.6-17.2); WHITE BLOOD COUNT 13.6 TH/MM3 (4.0-11.0)
[2017-09-24 06:07] LABS: ALBUMIN 1.8 GM/DL (3.4-5.0); ALKALINE PHOSPHATASE 163 U/L (45-117); ALT (GPT) 60 U/L (12-78); AST (GOT) 56 U/L (15-37); BICARBONATE 31.2 MEQ/L (21.0-32.0); BLOOD UREA NITROGEN 33 MG/DL (7-18); CALCIUM 8.6 MG/DL (8.5-10.1); CHLORIDE 120 MEQ/L (98-107); CREATININE 1.21 MG/DL (0.60-1.30); GLOMERULAR FILTRATION RATE 60 ML/MIN (>89); GLUCOSE,RANDOM 119 MG/DL (74-106); TOTAL BILIRUBIN ADULT 0.7 MG/DL (0.2-1.0); TOTAL PROTEIN 6.4 GM/DL (6.4-8.2)
[2017-09-24 06:09] LABS: SODIUM (NA) 157 MEQ/L (136-145)
[2017-09-24 07:38] LABS: BANDS 4 % (0-6); LYMPHOCYTES 7 % (9-44); METAMYELOCYTES 3 % (0-1); MONOCYTES 8 % (0-8); NEUTROPHIL # MANUAL DIFF 11.2 TH/MM3 (1.8-7.7); POLYS (SEG NEUTROPHILS) 75 % (16-70)
[2017-09-24] MEDS: GABAPENTIN 100 MG CAP PO SCH ×3 (08:55→18:21)
[2017-09-24] MEDS: LACTULOSE SYRUP 20 GM/30 ML CUP PO SCH (08:55)
[2017-09-24] MEDS: DOCUSATE SODIUM 50 MG/SENNA 8.6 MG TAB PO SCH ×2 (08:55→20:26)
[2017-09-24] MEDS: FAMOTIDINE 20 MG/2 ML VIAL IV PUSH SCH ×2 (09:00→20:26)
[2017-09-24] MEDS: BACITRACIN TOP OINT 15 GM TUBE TOPICAL SCH ×2 (09:01→20:58)
[2017-09-24] MEDS: CHLORHEXIDINE 0.12% (ORAL KIT) 15 ML CUP MT SCH ×2 (09:01→20:58)
[2017-09-24] MEDS: ARTIFICIAL TEARS OPTH OINT 3.5 APPLIC/3.5 GM TUBO EACH EYE SCH ×2 (09:01→20:58)
[2017-09-24] MEDS: ENOXAPARIN SODIUM 40 MG/0.4 ML SYRINGE SQ SCH (11:56)
[2017-09-24] MEDS: FUROSEMIDE 40 MG/4 ML VIAL IV PUSH SCH (11:57)
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
[2017-09-24] MEDS: PROPRANOLOL HCL 10 MG TAB PO SCH ×2 (14:37→20:26)
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
--- NOTE | 2017-09-24 19:25 | HHI.HCPN ---
Reason for visit a. To assist with evaluation and management of symptoms including: Pain, dyspnea b. To assist medical decision maker(s) with: better understanding of current medical conditions; weighing benefits/burdens of medical treatment options; making medical treatment decisions. Subjective/Interval History Patient seen today to follow-up on goals of care and symptom management. Patient remains intubated, off sedation for more than 24 hours with no neurological response. He is not responding to noxious stimuli, no gag, no corneal reflex. Labs today indicate WBC 13.6, hemoglobin 10.2, hematocrit 31.1 , platelets 372, sodium 157, potassium 3.8, BUN 33, creatinine 1.21, AST 56, ALT 60, alkaline phosphatase 163, albumin 1.8. Vent settings remain at bilevel 18/34, 30% FiO2. Chest x-ray shows no significant change. Family/friend interactions is at bedside and discussion was held with Dr. Ma regarding poor prognosis, severe head trauma, brain injury with very poor long-term prognosis. is adjusting to this diagnosis and considering withdrawal of life support. Her family is in transit from [place] and once they arrive, plans will be made for termination of life support with compassionate withdrawal of ventilator. . Advance Directives Living Will: Never completed Health Care Surrogate: Never completed Durable Power of Clinical Social Worker: Never completed Advance Directive Specifics Health Care Surrogate(s): Never completed. . Documented care wishes: Never completed. . Objective Vital Signs Date Time Temp Pulse Resp B/P (MAP) Pulse Ox O2 Delivery O2 Flow Rate FiO2 09/24/17 17:13 100 30 09/24/17 16:00 98.4 71 22 132/62 (85) 98 09/24/17 16:00 71 09/24/17 16:00 30 09/24/17 14:00 86 09/24/17 12:00 30 09/24/17 12:00 88 09/24/17 12:00 99.5 88 25 142/66 (91) 98 09/24/17 11:12 100 30 09/24/17 10:00 94 09/24/17 08:08 99 30 09/24/17 08:00 60 09/24/17 08:00 99.0 94 23 149/67 (94) 99 Arterial Line 09/24/17 08:00 91 09/24/17 07:00 99 Mechanical Ventilator 30 09/24/17 06:00 80 09/24/17 04:10 99 45 09/24/17 04:00 87 09/24/17 04:00 60 09/24/17 04:00 99.3 87 27 143/63 (89) 98 09/24/17 02:00 95 09/24/17 00:00 99.9 97 34 135/63 (87) 99 09/24/17 00:00 60 09/24/17 00:00 86 09/23/17 22:10 98 50 09/23/17 22:00 82 09/23/17 20:00 83 09/23/17 20:00 60 09/23/17 20:00 100.2 83 24 116/56 (76) 99 09/23/17 19:38 99 60 Physical Exam CONSTITUTIONAL/GENERAL: This is a morbidly obese male, intubated, sedated. TUBES/LINES/DRAINS: ETT, Brown, R CT, RSC CL, L rad, RFA PIV, RACF PIV SKIN: No jaundice, rashes, or lesions. Ecchymoses on upper extremities. No wounds seen anteriorly. Skin temperature appropriate. Not diaphoretic. HEAD: Right forehead contusion/lacerations. Bruising about face. Normocephalic. EYES: Pupils 3 mm, equal and round and sluggishly reactive. No scleral icterus. NECK: Trachea midline. CARDIOVASCULAR: Regular rate and rhythm without murmurs, gallops, or rubs. No JVD. Peripheral pulses diminished. RESPIRATORY/CHEST: Symmetric, unlabored respirations. Coarse breath sounds bilaterally, diminished at the bases. GASTROINTESTINAL: Abdomen soft, obese, nondistended. Minimal BS X 4 GENITOURINARY: Without palpable bladder distension. Brown catheter in place. NEUROLOGICAL: Intubated, unresponsive PSYCHIATRIC: Sedated, unresponsive Diagnostic Tests Laboratory Laboratory Tests Test 09/24/17 05:25 White Blood Count 13.6 TH/MM3 (4.0-11.0) Red Blood Count 3.39 MIL/MM3 (4.50-5.90) Hemoglobin 10.2 GM/DL (13.0-17.0) Hematocrit 31.1 % (39.0-51.0) Mean Corpuscular Volume 91.8 FL (80.0-100.0) Mean Corpuscular Hemoglobin 30.1 PG (27.0-34.0) Mean Corpuscular Hemoglobin Concent 32.8 % (32.0-36.0) Red Cell Distribution Width 16.3 % (11.6-17.2) Platelet Count 372 TH/MM3 (150-450) Mean Platelet Volume 9.1 FL (7.0-11.0) Neutrophils (%) (Auto) 80.9 % (16.0-70.0) Lymphocytes (%) (Auto) 8.6 % (9.0-44.0) Monocytes (%) (Auto) 8.0 % (0.0-8.0) Eosinophils (%) (Auto) 1.4 % (0.0-4.0) Basophils (%) (Auto) 1.1 % (0.0-2.0) Neutrophils # (Auto) 11.0 TH/MM3 (1.8-7.7) Lymphocytes # (Auto) 1.2 TH/MM3 (1.0-4.8) Monocytes # (Auto) 1.1 TH/MM3 (0-0.9) Eosinophils # (Auto) 0.2 TH/MM3 (0-0.4) Basophils # (Auto) 0.1 TH/MM3 (0-0.2) CBC Comment AUTO DIFF Differential Total Cells Counted 100 Neutrophils % (Manual) 75 % (16-70) Band Neutrophils % 4 % (0-6) Lymphocytes % 7 % (9-44) Monocytes % 8 % (0-8) Eosinophils % 3 % (0-4) Neutrophils # (Manual) 11.2 TH/MM3 (1.8-7.7) Metamyelocytes 3 % (0-1) Differential Comment FINAL DIFF MANUAL Platelet Estimate NORMAL (NORMAL) Platelet Morphology Comment CLUMPED (NORMAL) Red Cell Morphology Comment NORMAL (NORMAL) Blood Urea Nitrogen 33 MG/DL (7-18) Creatinine 1.21 MG/DL (0.60-1.30) Random Glucose 119 MG/DL (74-106) Total Protein 6.4 GM/DL (6.4-8.2) Albumin 1.8 GM/DL (3.4-5.0) Calcium Level 8.6 MG/DL (8.5-10.1) Alkaline Phosphatase 163 U/L (45-117) Aspartate Amino Transf (AST/SGOT) 56 U/L (15-37) Alanine Aminotransferase (ALT/SGPT) 60 U/L (12-78) Total Bilirubin 0.7 MG/DL (0.2-1.0) Sodium Level 157 MEQ/L (136-145) Potassium Level 3.8 MEQ/L (3.5-5.1) Chloride Level 120 MEQ/L (98-107) Carbon Dioxide Level 31.2 MEQ/L (21.0-32.0) Anion Gap 6 MEQ/L (5-15) Estimat Glomerular Filtration Rate 60 ML/MIN (>89) Result Diagram: 09/24/17 0525 09/24/17 0525 Procedures 09/14/2017: Right subclavian central line placement 09/14/2017: Orotracheal intubation 09/16/2017: Right chest tube placement Assessment and Plan Disease Oriented Problem List: (1) Paroxysmal atrial fibrillation (2) Intracranial hemorrhage (3) Lung contusion (4) Rib fractures Symptom Scale: (1) Dyspnea and respiratory abnormalities (2) Pain, generalized Pertinent Non-Medical Issues Psychosocial:He was born and brought up in [place]. He is and has 2 daughters who both live in [place]. He and his reside in [place]. Spiritual: Cashiers Supervisor available. Legal: No legal issues noted. Ethical issues impacting care: No ethical issues noted. . Important Contacts : Bri Kevin Prognosis His prognosis is very poor. He has multiple baseline comorbidities, a severe head injury and has required extraordinarily high levels of ventilator support. He is currently been off sedation all day and is not withdrawing to pain. Even with tracheostomy and PEG tube placement, his ventilator course will be extremely extended and may be permanent. . Code Status: No Code Plan PLAN: Legal decision maker: Patient is not capacitated to make his own decisions as he is unresponsive and on a ventilator. By [place] statutes, his would be the healthcare proxy decision-maker. She is working with her 2 children and the patient's 2 children for joint decision-making. Goals: Aggressive short of resuscitation. CODE STATUS: DNR SYMPTOMS: * Dyspnea: Patient requiring APRV bilevel ventilation with 18/34, 30% FiO2. Off sedation >24 hours with no neurological response. Family planning compassionate vent withdrawal next week when children arrived. * Debility: He has multiple fractures and it is the opinion of the trauma team that he will have no neurologic recovery. * Pain: This is multifactorial, considering invasive lines, bedbound status, severe trauma with multiple broken bones. He is currently receiving fentanyl at 100 mcg an hour for baseline pain management. Patient is nonresponsive to noxious stimuli. Palliative care will continue to follow the patient during hospital course as condition evolves, to assist patient/decision-maker with understanding of their medical conditions, weighing benefits/burdens of treatment options, for clarification of goals of treatment. Additionally will assist with any symptoms of palliative concern. . Attestation To help prompt me to consider important information that might be impacting today's encounter and assessment, information from prior notes written by myself or my colleagues may have been "brought forward" into today's note. My signature on this note, however, is an attestation that I personally performed the exam, history, and/or decision-making noted today, and, unless otherwise indicated, the interactions with patient, family, and staff as well as the review of records all occurred today. I also attest that the listed assessment and stated plan reflect my best clinical judgment today based on the combination of historical information, prior notes, and today's exam/ interactions. When time spent is documented, it refers only to time spent today by the signer, or if indicated, combined time spent today by collaborating physician/nurse practitioner. . Diane De Guzman Sep 24, 2017 7:25 pm
[2017-09-24] MEDS: ATORVASTATIN 10 MG TAB PO SCH (20:26)
[2017-09-24] MEDS: fentaNYL DRIP 250 ML IV PRN (22:00)
[2017-09-25] VITALS (17 sets, daily range): BP systolic 106–130; BP diastolic 57–64; PULSE 67–81; RESP 13–22; TEMP 97.5–99.3; O2SAT 97–100
[2017-09-25] MEDS: CHLORHEXIDINE GLUCONATE 2 % 1 PACK (2 CLOTHS) TOP SCH (04:00)
[2017-09-25] MEDS ORDERED: LATA.005%O EACH EYE (05:42)
[2017-09-25] MEDS ORDERED: BRIN1SUS2 EACH EYE (05:42)
[2017-09-25] MEDS ORDERED: TIMO0.5S5 EACH EYE (05:42)
[2017-09-25 05:50] LABS: AUTOMATED NEUTROPHIL # 13.3 TH/MM3 (1.8-7.7); BASOPHIL # 0.1 TH/MM3 (0-0.2); BASOPHIL % 0.5 % (0.0-2.0); EOSINOPHIL # 0.2 TH/MM3 (0-0.4); EOSINOPHIL % 1.3 % (0.0-4.0); HEMATOCRIT 34.5 % (39.0-51.0); HEMOGLOBIN 11.3 GM/DL (13.0-17.0); LYMPH % 7.7 % (9.0-44.0); LYMPHOCYTE # 1.2 TH/MM3 (1.0-4.8); MEAN CELL VOLUME 92.8 FL (80.0-100.0); MEAN CORPUSCULAR HEMOGLOBIN 30.3 PG (27.0-34.0); MEAN CORPUSCULAR HGB CONC 32.7 % (32.0-36.0); MEAN PLATELET VOLUME 9.1 FL (7.0-11.0); MONO % 8.5 % (0.0-8.0); MONOCYTE # 1.4 TH/MM3 (0-0.9); PLATELET COUNT 430 TH/MM3 (150-450); RED BLOOD COUNT 3.71 MIL/MM3 (4.50-5.90); RED CELL DISTRIBUTION WIDTH 15.9 % (11.6-17.2); WHITE BLOOD COUNT 16.2 TH/MM3 (4.0-11.0)
[2017-09-25] MEDS: PROPRANOLOL HCL 10 MG TAB PO SCH ×3 (06:13→21:19)
[2017-09-25 06:19] LABS: BICARBONATE 32.3 MEQ/L (21.0-32.0); CREATININE 1.16 MG/DL (0.60-1.30)
[2017-09-25] MEDS: LACTULOSE SYRUP 20 GM/30 ML CUP PO SCH ×3 (08:48→20:29)
[2017-09-25] MEDS: DOCUSATE SODIUM 50 MG/SENNA 8.6 MG TAB PO SCH ×2 (08:48→20:29)
[2017-09-25] MEDS: GABAPENTIN 100 MG CAP PO SCH ×3 (08:48→18:00)
[2017-09-25] MEDS: CHLORHEXIDINE 0.12% (ORAL KIT) 15 ML CUP MT SCH ×2 (08:49→20:15)
[2017-09-25] MEDS: FUROSEMIDE 40 MG/4 ML VIAL IV PUSH SCH (08:49)
[2017-09-25] MEDS: ARTIFICIAL TEARS OPTH OINT 3.5 APPLIC/3.5 GM TUBO EACH EYE SCH ×2 (08:49→20:29)
[2017-09-25] MEDS: BACITRACIN TOP OINT 15 GM TUBE TOPICAL SCH ×2 (08:52→20:29)
[2017-09-25] MEDS: FAMOTIDINE 20 MG/2 ML VIAL IV PUSH SCH ×2 (08:52→20:29)
[2017-09-25 09:09] LABS: BANDS 4 % (0-6); LYMPHOCYTES 9 % (9-44); METAMYELOCYTES 2 % (0-1); MONOCYTES 8 % (0-8); MYELOCYTES 2 % (0-0); NEUTROPHIL # MANUAL DIFF 13.3 TH/MM3 (1.8-7.7); POLYS (SEG NEUTROPHILS) 74 % (16-70)
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
[2017-09-25] MEDS: ENOXAPARIN SODIUM 40 MG/0.4 ML SYRINGE SQ SCH (12:27)
[2017-09-25] MEDS: fentaNYL DRIP 250 ML IV PRN (18:00)
[2017-09-25] MEDS: ATORVASTATIN 10 MG TAB PO SCH (20:29)
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
[2017-09-26] VITALS (11 sets, daily range): BP systolic 112–146; BP diastolic 56–72; PULSE 7–92; RESP 14–30; TEMP 98.9–99.9; O2SAT 96–100
[2017-09-26] MEDS: LACTULOSE SYRUP 20 GM/30 ML CUP PO SCH ×3 (03:00→15:00)
[2017-09-26] MEDS: CHLORHEXIDINE GLUCONATE 2 % 1 PACK (2 CLOTHS) TOP SCH (04:00)
[2017-09-26 05:13] LABS: BASOPHIL # 0.1 TH/MM3 (0-0.2); BASOPHIL % 0.9 % (0.0-2.0); EOSINOPHIL # 0.1 TH/MM3 (0-0.4); EOSINOPHIL % 0.8 % (0.0-4.0); HEMATOCRIT 32.3 % (39.0-51.0); HEMOGLOBIN 10.6 GM/DL (13.0-17.0); LYMPH % 9.4 % (9.0-44.0); LYMPHOCYTE # 1.4 TH/MM3 (1.0-4.8); MEAN CELL VOLUME 90.6 FL (80.0-100.0); MEAN CORPUSCULAR HEMOGLOBIN 29.6 PG (27.0-34.0); MEAN CORPUSCULAR HGB CONC 32.7 % (32.0-36.0); MEAN PLATELET VOLUME 9.2 FL (7.0-11.0); MONO % 7.9 % (0.0-8.0); MONOCYTE # 1.2 TH/MM3 (0-0.9); PLATELET COUNT 451 TH/MM3 (150-450); RED BLOOD COUNT 3.56 MIL/MM3 (4.50-5.90); RED CELL DISTRIBUTION WIDTH 15.1 % (11.6-17.2); WHITE BLOOD COUNT 14.8 TH/MM3 (4.0-11.0)
[2017-09-26 05:43] LABS: BICARBONATE 31.6 MEQ/L (21.0-32.0); CALCIUM 8.5 MG/DL (8.5-10.1); CREATININE 1.49 MG/DL (0.60-1.30)
[2017-09-26] MEDS: PROPRANOLOL HCL 10 MG TAB PO SCH ×2 (06:35→14:00)
[2017-09-26] MEDS: POTASSIUM CHLOR 40 MEQ PREMIX 100 ML IV PRN (06:41)
[2017-09-26] MEDS: CHLORHEXIDINE 0.12% (ORAL KIT) 15 ML CUP MT SCH (08:00)
[2017-09-26] MEDS: GABAPENTIN 100 MG CAP PO SCH ×3 (08:40→18:00)
[2017-09-26] MEDS: FAMOTIDINE 20 MG/2 ML VIAL IV PUSH SCH (08:41)
[2017-09-26] MEDS: DOCUSATE SODIUM 50 MG/SENNA 8.6 MG TAB PO SCH (08:41)
[2017-09-26] MEDS: ARTIFICIAL TEARS OPTH OINT 3.5 APPLIC/3.5 GM TUBO EACH EYE SCH (08:41)
[2017-09-26] MEDS: BACITRACIN TOP OINT 15 GM TUBE TOPICAL SCH (08:41)
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
[2017-09-26] MEDS: ENOXAPARIN SODIUM 40 MG/0.4 ML SYRINGE SQ SCH (12:45)
[2017-09-26] MEDS ORDERED: fentaNYL CITRATE 250 MCG/5 ML AMP IV PUSH ONE (13:30)
[2017-09-26] MEDS ORDERED: LORazepam 2 MG/ML VIAL IV PUSH ONE (13:30)
[2017-09-26] MEDS ORDERED: fentaNYL DRIP 250 ML IV PRN (13:30)
[2017-09-26] MEDS ORDERED: MORPHINE SULFATE 8 MG/ML INJ IV PUSH PRN (13:30)
[2017-09-26] MEDS ORDERED: HYOSCYAMINE SOLN 0.125 MG/ML 15 ML BTL PO PRN (13:30)
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
[2017-09-26] MEDS: LORazepam 2 MG/ML VIAL IV PUSH PRN ×3 (15:10→18:15)
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
== END 2017-09-26 22:59 | disposition expired | DRG 963 ==
LOC: NEPI 11:46 → MERGE 12:15 → EDBD 12:15 → NEDA 12:15 → N03B 12:36
PROVIDERS: ADMIT Surgery Trauma Surgery; ATTEND Surgery Trauma Surgery
PROC: 02H633Z Insertion of Infusion Device into Right Atrium, Percutaneous Approach (ICD-10-PCS; principal; 2017-09-14)
PROC: 5A1955Z Respiratory Ventilation, Greater than 96 Consecutive Hours (ICD-10-PCS; 2017-09-14)
PROC: 0BH18EZ Insertion of Endotracheal Airway into Trachea, Via Natural or Artificial Opening Endoscopic (ICD-10-PCS; 2017-09-14)
PROC: 30233N1 Transfusion of Nonautologous Red Blood Cells into Peripheral Vein, Percutaneous Approach (ICD-10-PCS; 2017-09-14)
PROC: 0W9930Z Drainage of Right Pleural Cavity with Drainage Device, Percutaneous Approach (ICD-10-PCS; 2017-09-16)
DX: S06.369A Traumatic hemorrhage of cerebrum, unspecified, with loss of consciousness of unspecified duration, initial encounter (principal); J96.01 Acute respiratory failure with hypoxia; S27.2XXA Traumatic hemopneumothorax, initial encounter; E87.2 Acidosis; J96.02 Acute respiratory failure with hypercapnia; I11.0 Hypertensive heart disease with heart failure; S32.10XA Unspecified fracture of sacrum, initial encounter for closed fracture; I95.9 Hypotension, unspecified; J44.9 Chronic obstructive pulmonary disease, unspecified; I50.9 Heart failure, unspecified; S22.41XA Multiple fractures of ribs, right side, initial encounter for closed fracture; G91.2 (Idiopathic) normal pressure hydrocephalus; T79.7XXA Traumatic subcutaneous emphysema, initial encounter; J98.11 Atelectasis; I48.0 Paroxysmal atrial fibrillation; S02.19XA Other fracture of base of skull, initial encounter for closed fracture; S02.81XA Fracture of other specified skull and facial bones, right side, initial encounter for closed fracture; S02.40CA Maxillary fracture, right side, initial encounter for closed fracture; Z51.5 Encounter for palliative care; Z66 Do not resuscitate; R79.1 Abnormal coagulation profile; S62.314A Displaced fracture of base of fourth metacarpal bone, right hand, initial encounter for closed fracture; T45.515A Adverse effect of anticoagulants, initial encounter; F17.210 Nicotine dependence, cigarettes, uncomplicated; N28.9 Disorder of kidney and ureter, unspecified; R10.9 Unspecified abdominal pain; M54.6 Pain in thoracic spine; R40.2412 Glasgow coma scale score 13-15, at arrival to emergency department; S06.2X9A Diffuse traumatic brain injury with loss of consciousness of unspecified duration, initial encounter; G47.30 Sleep apnea, unspecified; E78.5 Hyperlipidemia, unspecified; F41.9 Anxiety disorder, unspecified; R00.0 Tachycardia, unspecified; S60.511A Abrasion of right hand, initial encounter; E66.9 Obesity, unspecified; E86.1 Hypovolemia; I25.10 Atherosclerotic heart disease of native coronary artery without angina pectoris; I49.3 Ventricular premature depolarization; Z98.2 Presence of cerebrospinal fluid drainage device; V29.88XA Motorcycle rider (driver) (passenger) injured in other specified transport accidents, initial encounter; Z68.36 Body mass index [BMI] 36.0-36.9, adult; Z86.73 Personal history of transient ischemic attack (TIA), and cerebral infarction without residual deficits; Z79.01 Long term (current) use of anticoagulants; Z86.718 Personal history of other venous thrombosis and embolism
CPT/HCPCS: 31500; 36430; 36556; 36600; 36620; 70450; 70486; 71045; 71250; 71260; 72125; 72129; 72132; 72170; 73100; 73120; 74177; 76937; 80048; 80053; 82805; 83605; 83735; 84100; 84132; 84484; 85007; 85025; 85027; 85384; 85610; 85730; 86850; 86900; 86901; 86920; 87070; 87205; 87641; 90471; 90715; 93005; 93306; 94002; 94003; 94640; 94664; 94770; 96374; 96375; 99291; J1265; A7521; C9113; C9132; G0390; J0131; J0295; J1170; J1650; J1940; J2060; J2150; J2250; J2270; J2405; J2765; J3010; J3430; J3480; J7030; J7050; J7060; P9016; P9045; Q9967